=== PATIENT | male | born 1940 | race Caucasian/White ===

== ENCOUNTER 2017-02-12 06:51 | Day surgery (SDC) | payer MEDICARE, OTHER ==
[~2017-02-12] VITALS: Ht 170.2 cm; Wt 122.0 kg
[2017-02-12 07:23] VITALS: BP 134/79; PULSE 87; RESP 18; TEMP 98; O2SAT 96
[2017-02-12] MEDS ORDERED: HYDR-3583 PO (07:35)
[2017-02-12] MEDS ORDERED: LOVA40TA PO (07:35)
[2017-02-12] MEDS ORDERED: COUM10TA PO (07:35)
[2017-02-12] MEDS ORDERED: ASPI81CH CHEW (07:35)
[2017-02-12] MEDS ORDERED: METO25TA3 PO (07:35)
[2017-02-12] MEDS ORDERED: GLUC1000 PO (07:35)
[2017-02-12] MEDS ORDERED: LOSA100T2 PO (07:35)
[2017-02-12] MEDS ORDERED: DOXY50 PO (07:35)
[2017-02-12 07:55] LABS: AUTOMATED NEUTROPHIL # 6.5 TH/MM3 (1.8-7.7); BASOPHIL # 0.2 TH/MM3 (0-0.2); BASOPHIL % 2.3 % (0.0-2.0); EOSINOPHIL # 0.2 TH/MM3 (0-0.4); EOSINOPHIL % 1.7 % (0.0-4.0); HEMO FLAGS DIFF FINAL; LYMPH % 14.2 % (9.0-44.0); LYMPHOCYTE # 1.4 TH/MM3 (1.0-4.8); MEAN CORPUSCULAR HEMOGLOBIN 28.6 PG (27.0-34.0); MEAN CORPUSCULAR HGB CONC 32.1 % (32.0-36.0); MONO % 14.4 % (0.0-8.0); NEUT % 67.4 % (16.0-70.0); PLATELET COUNT 237 TH/MM3 (150-450); RED BLOOD COUNT 4.37 MIL/MM3 (4.50-5.90); WHITE BLOOD COUNT 9.6 TH/MM3 (4.0-11.0)
[2017-02-12 08:04] LABS: APTT (PATIENT) 30.9 SEC (24.3-30.1); INTERNATIONAL NORMALIZED RATIO 1.1 RATIO; PROTHROMBIN TIME - PATIENT 12.2 SEC (9.8-11.6)
[2017-02-12 08:11] LABS: BICARBONATE 28.5 MEQ/L (21.0-32.0); POTASSIUM 3.9 MEQ/L (3.5-5.1)
[2017-02-12] MEDS ORDERED: HEPARIN-NS/PF INJ 500 ML ONE (08:34)
[2017-02-12] MEDS ORDERED: MIDAZOLAM HCL 2 MG/2 ML VIAL ONE (08:34)
[2017-02-12] MEDS ORDERED: HEPARIN SODIUM - IV 10,000 UNITS/10 ML VIAL ONE (09:15)
[2017-02-12] MEDS ORDERED: VERAPAMIL HCL 5 MG/2 ML VIAL ONE (09:15)
[2017-02-12] MEDS ORDERED: NITROGLYCERIN INJ 5 ML ONE (09:16)
[2017-02-12] MEDS ORDERED: SODIUM CHLORIDE 0.9% FLUSH 5 ML FLUSH IVF PRN (10:00)
[2017-02-12] MEDS ORDERED: IOHEXOL 350 MG/ML 100 ML BTL (for Cath Lab) OTHER ONE (10:00)
[2017-02-12] MEDS ORDERED: MISC INFORMATION XX ONE (10:00)
--- NOTE | 2017-02-12 11:19 | MA ---
cc: DELROY HURT DATE: 02/12/2017 PROCEDURE PERFORMED 1. Right heart catheterization. 2. Left heart catheterization. 3. Selective right and left coronary artery angiography. INDICATION Pre-op / severe symptomatic aortic stenosis. PROCEDURE DESCRIPTION Consent signed. 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 The right wrist and right groin were prepped and draped in a sterile fashion. Using 1% lidocaine for local anesthesia and a micropuncture kit a 7- Haitian sheath was inserted into the right common femoral vein. A [place] was floated into a wedge. Pressures were recorded as well as blood was drawn from the pulmonary artery. Pressures were recorded on the right ventricle and the right atrium as well as in the wedge. Then using 1% lidocaine and a micropuncture kit a 6-Haitian sheath was inserted into the right radial artery. An antispasmodic cocktail was given then selective right and left coronary angiography was performed with a AL-1 and a JL4 diagnostic catheter. Angiography was performed in multiple views. The patient tolerated the procedure well without complications. Estimated blood loss was less than 40 cc. Total contrast used 70 cc. The vein groin site was closed with manual pressure and the right radial artery was closed with a TR band. RESULTS Wedge 37. Main PA 75/43 with a mean of 58. Right ventricle 72/31 with a mean of 27. Right atrium 25/25 with a mean of 22. Ascending aorta pressure 152/91 with a mean of 118. ANGIOGRAPHY 1. The right coronary artery is a dominant vessel and is diffusely calcified and 100% occluded at the ostium. It is filled in through collaterals that are coming from the left circumflex artery as well as from the septals of the LAD. 2. The left main has a 30% lesion distally, is mildly calcified. 3. The LAD is a transapical vessel, has minimal luminal irregularities throughout. It is tortuous. There is a proximal 40% lesion right after the takeoff of the first diagonal. The first and second diagonal are small and they are patent. 4. The left circumflex artery has minimal luminal irregularities throughout. It is also tortuous. There is a proximal 70% lesion. It is giving off a prominent OM1 which is giving collaterals to the right coronary artery. The OM1 is patent with ASHLEE-III flow. CONCLUSIONS 1. Severe symptomatic aortic stenosis. 2. Severe two-vessel coronary artery disease. 3. Elevated right-sided heart pressures. RECOMMENDATIONS The patient will be consulted to CT surgery for aortic valve replacement and bypass surgery. His STS score is 2% The patient will need PFTs, carotid ultrasound and CTA of the chest, abdomen and pelvis. MD FLACO Srinivasan/NNEKA /10:06 AM /10:49 AM MTDD
[2017-02-12] MEDS ORDERED: SODIUM CHLORIDE 0.9% FLUSH 5 ML FLUSH IV FLUSH PRN (11:30)
[2017-02-12] MEDS ORDERED: PAPAVERINE INJ 60 MG, NITROGLYCERIN INJ 100 MCG, DILTIAZEM INJ 100 MG in SODIUM CHLORID... IRRIGATION SCH (11:30)
--- NOTE | 2017-02-12 13:00 | RADRPT ---
EXAM DATE/TIME: 02/12/2017 11:41 [facility] COMPARISON: No previous studies available for comparison. INDICATIONS : Occlusion. MEDICAL HISTORY : Hypertension. Hyperlipidemia. Diabetes. Chest pain. Pulmonary embolism. Anticoagulant therapy, Co umadin. SURGICAL HISTORY : Cardiac cath. ENCOUNTER: Initial ACUITY: 1 day PAIN SCORE: 8/10 LOCATION: Bilateral neck PEAK SYSTOLIC VELOCITIES (cm/sec): ICA/CCA RATIO: Right: 1.7 Left: 1.6 ICA: Right: 79 Left: 74 CCA: Right: 45 Left: 47 ECA: Right: 92 Left: 58 VERTEBRAL: Right: 42 antegrade Left: 36 antegrade Elevated flow velocities and ICA/CCA ratios have been found to correlate with increased degrees of vessel stenosis, calculated as percentage of diameter relative to a normal segment of distal ICA/CCA FINDINGS: RIGHT CAROTID: Mild plaque is seen at the common carotid and carotid bulb regions. No significant stenosis is visual ized. The waveforms are within normal limits. LEFT CAROTID: Mild plaque is seen at the common carotid and carotid bulb regions. No significant stenosis is visual ized. The waveforms are within normal limits. VERTEBRAL ARTERIES: Antegrade flow is seen in both vertebral arteries. MISCELLANEOUS: None. CONCLUSION: Mild plaque without a significant stenosis. Bahman Martins MD on February 12, 2017 at 12:57 Board Certified Radiologist. This report was verified electronically.
--- NOTE | 2017-02-12 13:04 | RADRPT ---
EXAM DATE/TIME: 02/12/2017 12:01 [facility] COMPARISON: No previous studies available for comparison. INDICATIONS : Preop CABG. MEDICAL HISTORY : Hypertension. Hyperlipidemia. Diabetes. Chest pain. Pulmonary embolism. Anticoagulant therapy, Coum andrew. SURGICAL HISTORY : Cardiac catheterization. ENCOUNTER: Initial ACUITY: 1 day PAIN SCORE: 8/10 LOCATION: Bilateral leg. TECHNIQUE: Venous ultrasound of the left and right leg was performed from the inguinal ligament to the proximal calf. Real-time, color Doppler and spectral tracing, compression and augmentation techniques were us ed. FINDINGS: RIGHT LEG: There is normal compressibility of the deep venous system from the inguinal region to the proximal ca lf. No echogenic clot is seen in the lumen of the common femoral, femoral, popliteal, and posterior tibial veins. There is a normal response of the venous system to proximal and distal augmentation an d respiration. LEFT LEG: There is normal compressibility of the deep venous system from the inguinal region to the proximal ca lf. No echogenic clot is seen in the lumen of the common femoral, femoral, popliteal, and posterior tibial veins. There is a normal response of the venous system to proximal and distal augmentation an d respiration. CONCLUSION: No DVT. Bahman Martins MD on February 12, 2017 at 12:58 Board Certified Radiologist. This report was verified electronically.
--- NOTE | 2017-02-12 13:05 | RADRPT ---
EXAM DATE/TIME: 02/12/2017 12:10 [facility] COMPARISON: No previous studies available for comparison. INDICATIONS : Preop CABG. MEDICAL HISTORY : Hypertension. Hyperlipidemia. Diabetes. Chest pain. Pulmonary embolism. Anticoagulant therapy, Coum andrew. SURGICAL HISTORY : Cardiac catheterization. ENCOUNTER: Initial ACUITY: 1 day PAIN SCORE: 8/10 LOCATION: Bilateral leg. GREATER SAPHENOUS VEIN THIGH: PROXIMAL: Right 3 mm Left 6 mm MID: Right 2 mm Left 3 mm DISTAL: Right 2 mm Left 3 mm CALF: PROXIMAL: Right 3 mm Left 2 mm MID: Right 2 mm Left 2 mm DISTAL: Right 3 mm Left 3 mm FINDINGS: The venous system of the lower extremities are patent by color Doppler imaging. Measurements of the leg veins (in mm) are listed above. CONCLUSION: Venous mapping as noted above. Bahman Martins MD on February 12, 2017 at 13:02 Board Certified Radiologist. This report was verified electronically.
[2017-02-12 13:50] LABS: BLOOD, URINE NEG (NEG); COMMENT (UR) CULT NOT INDICATED; CULTURE IF INDICATED CULT NOT INDICATED; GLUCOSE,URINE NEG (NEG); KETONE, URINE NEG (NEG); MUCUS URINE FEW /lpf (OCC); NITRITE,URINE NEG (NEG); PH, URINE 6.5 (5.0-8.5); SQUAMOUS EPITHELIAL CELL URINE <1 /hpf (0-5); URINE COLOR YELLOW (YELLW/STRAW)
[2017-02-12 14:22] LABS: HEMOGLOBIN A1a 1.3 %; HEMOGLOBIN A1b 0.9 %; HEMOGLOBIN Ao 83.4 %; HEMOGLOBIN F 1.9 %; HEMOGLOBIN LA1C 2.1 %; HEMOGLOBIN P3 4.2 %
--- NOTE | 2017-02-12 14:24 | RADRPT ---
EXAM DATE/TIME: 02/12/2017 13:55 [facility] COMPARISON: No previous studies available for comparison. INDICATIONS : Infiltrate MEDICAL HISTORY : None. SURGICAL HISTORY : None. ENCOUNTER: Initial ACUITY: 1 day PAIN SCORE: 0/10 LOCATION: chest FINDINGS: The heart is moderately enlarged. There is no significant congestion or acute airspace disease. There are no pleural effusions. Osseous structures are intact. CONCLUSION: Cardiomegaly without evidence of acute cardiopulmonary process. Charly Valverde MD on February 12, 2017 at 14:19 Board Certified Radiologist. This report was verified electronically.
--- NOTE | 2017-02-12 14:28 | EKG ---
Date Performed: 02/12/2017 Time Performed: 07:33:34 PTAGE: 76 years EKG: Atrial fibrillation Nonspecific intraventricular conduction defect Inferior infarct - age u ndetermined QRS changes V3/V4 may be due to LVH but cannot rule out anterior infarct COMPARED TO PRIO R ELECTROCARDIOGRAM, Atrial fibrillation has replaced Sinus rhythm and inferior myocardial infarction pattern is present. Abnormal ECG PREVIOUS TRACING : 08/13/2005 04.36 DOCTOR: Marques Weller Interpretating Date/Time 02/12/2017 14:27:47
--- NOTE | 2017-02-12 17:01 | MB ---
cc: PRISCILLA PERAZA MD, REBA K. MD DATE OF CONSULTATION: 02/23/2017 REASON FOR CONSULTATION: This is a 76-year-old male patient of Dr. Lai Hernandez, Dr. Faheem Mistry, with history of aortic stenosis, atrial fibrillation reported increasing dyspnea with mild exertion. No syncope. No paroxysmal nocturnal dyspnea. No chest pain was followed up with Dr. Mistry and underwent Echocardiogram which showed evidence of severe aortic stenosis with a mean gradient of 44, valve area of 0.83, some mild mitral regurgitation, mild tricuspid regurgitation. Ejection fraction of 68%. The patient then underwent cardiac cath today. which showed left main disease of 40% proximal LAD 50%. The circ was 70%. The RCA 100%. We were consulted to evaluate for coronary artery bypass grafting x2 with aortic valve replacement. The patients history is complicated by right knee infection and where he had a right total knee [place] [address] Gr with repair of the right knee in 2013 with removal of the hardware. He has this seen and numerous other physicians for consultation but he was told that he might have to have complete removal of the hardware and placement of a spacer for 6-8 months and then room surgery, but he has been turned down due to his history of atrial fibrillation, his history of pulmonary emboli on anticoagulation and apparently needing cardiac clearance. He has been following with Dr. Tere [facility] for his intermittent infection of his right knee. He also had been followed by wound clinic at [facility]. He has been on doxycycline for the last 2 months. He normally resides in [place] but he is does have a condo here in the area and is here to be evaluated again for the above complaint. PAST MEDICAL HISTORY: The patient's past medical history significant for aortic stenosis. He had a stress test in 2012 which had inferior defect, at that time worsening aortic stenosis by cath and echo. Atrial fibrillation with CYNTHIA'S score 2. Was on Xarelto in the past but had a GI bleed Also has had history of cardioversion and is on coumadin now. He has some carotid stenosis. His prior carotid ultrasound 2013 showed by moderate bilateral and ICA disease. He has history of coronary artery disease with prior RCA stent in He has a stent to the LAD, The RCA. He also was taken off Plavix secondary to GI bleed history. History of diabetes mellitus type 2, chronic lower extremity edema, chronic cellulitis and venous stasis of his lower extremities. History of GI bleed. Hypertension Hyperlipidemia. Left ventricular hypertrophy. obesity, weight is 122 kg. The patient also had history of IVC filter placement. ALLERGIES NO KNOWN DRUG ALLERGIES. MEDICATIONS: Aspirin 81 daily, Coumadin 10 p.o. daily, Doxycycline 100 b.i.d., Glucophage 1000 b.i.d. [place] p.r.n. for pain Losartan / hydrochlorothiazide 100/25 p.o. daily, Lovastatin 40 daily Metoprolol 25 p.o. daily. FAMILY HISTORY: Family history of mother from pancreatic cancer. 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 Normally resides in the [facility] REVIEW OF SYSTEMS As above in the history of present illness of 12 systems unremarkable. PHYSICAL EXAMINATION: VITAL SIGNS: On exam blood pressure 144/80, heart rate 70, temperature, afebrile. O2 sat 96% on room air. IN GENERAL: Patient is awake, alert, no acute distress. HEAD, EYES, EARS, NOSE, AND THROAT: head is normocephalic, atraumatic. Pupils equal and reactive. Oral mucosa pink, moist. NECK: Supple. No JVD. HEART: Heart sounds S1-S2 a regular rate and rhythm with a great 2-3/6 systolic murmur best on the left sternal border. LUNGS: Clear to auscultation wheezes, rales or rhonchi. ABDOMEN: Soft, nontender. No masses or organomegaly. EXTREMITIES: Reveal the right knee and lower extremity larger than the left he does have bilateral ankle erythema, chronic venous stasis and chronic history of cellulitis. The right knee is positive for swelling and no drainage. No induration at this time. He has distal pulses. LABORATORY FINDINGS Shows INR 1.1. Hemoglobin 12, hematocrit 39, white cell count 190.6, platelet count 237, sodium 140, potassium 3.9, BUN of 14, creatinine 0.97. The echocardiogram was as above. EKG shows atrial fibrillation with Q-waves in inferior leads, incomplete left bundle branch block. IMPRESSION This is a 76-year-old male with severe aortic stenosis also two-vessel coronary disease. Evaluation for aortic valve replacement, coronary artery bypass graft x2 cardiac films will be evaluated by Dr. Priscilla Peraza. In the meantime the patient will need infectious disease clearance for surgery incase related to the need for tissue aortic valve placement to avoid any infection. We have placed and made an appointment with Dr. Tere Disla for next week on the and then she has a follow-up in our office on the . The patient is to continue all medications as above. If he has any chest pain in the meantime, he is to return to the emergency room immediately. In the meantime we will follow up with the patient as a outpatient and timing for surgery at that time. DICTATED BY: JOANA Landry Priscilla Bennett /2:52 PM /8:32 AM
[2017-02-12] MEDS ORDERED: SODIUM CHLORIDE 0.9% FLUSH 5 ML FLUSH IVF SCH (21:00)
[2017-02-12] MEDS ORDERED: SODIUM CHLORIDE 0.9% FLUSH 5 ML FLUSH IV FLUSH SCH (21:00)
--- NOTE | 2017-02-16 16:38 | PD.CAR.PN ---
CVT Progress Note Subjective/Hospital Course: sts data discussed with pt RISK SCORES About the STS Risk Calculator Procedure: AV Replacement + CAB Risk of Mortality: 3.42% Morbidity or Mortality: 22.974% Long Length of Stay: 12.017% Short Length of Stay: 20.991% Permanent Stroke: 1.808% Prolonged Ventilation: 14.602% DSW Infection: 0.86% Renal Failure: 8.737% Reoperation: 9.763% Result Diagram: 02/12/17 0720 02/12/17 0720 Zara Sheehan Feb 16, 2017 16:38
--- NOTE | 2017-02-19 11:59 | RSPPFT ---
DATE OF PROCEDURE: 02/12/17 COMMENTS: Spirometry with FVC of 1.9 at 58% of predicted, FEV1 of 1.4 at 58%, FEV1/FVC ratio is normal. Flow is decreased at FEF 25-75. Flow volume loop indicates a restrictive pattern. IMPRESSION: 1. Moderately severe obstructive lung disease. 2. Post-bronchodilator study was not done. 3. Patient will need a complete pulmonary function study for further evaluation.
== END 2017-02-12 16:34 | disposition home or self-care (01) ==
LOC: HCAT 06:51 → HDIC 06:52 → HCAT 16:34
PROVIDERS: ATTEND Radiology Vascular & Interventional Radiology
DX: I35.0 Nonrheumatic aortic (valve) stenosis (principal); I34.0 Nonrheumatic mitral (valve) insufficiency; I51.7 Cardiomegaly; I48.91 Unspecified atrial fibrillation; I25.10 Atherosclerotic heart disease of native coronary artery without angina pectoris; I25.82 Chronic total occlusion of coronary artery; E78.5 Hyperlipidemia, unspecified; E11.9 Type 2 diabetes mellitus without complications; I10 Essential (primary) hypertension; E66.9 Obesity, unspecified; Z68.41 Body mass index [BMI] 40.0-44.9, adult; Z79.01 Long term (current) use of anticoagulants; Z79.82 Long term (current) use of aspirin; Z86.711 Personal history of pulmonary embolism; Z95.5 Presence of coronary angioplasty implant and graft; Z87.891 Personal history of nicotine dependence; Z01.818 Encounter for other preprocedural examination
CPT/HCPCS: 71010; 80048; 81001; 82810; 83036; 85025; 85610; 85730; 87641; 93005; 93457; 93880; 93970; 93998; 94010; C1769; C1893; J1644; J2250; J3010; Q9967

== ENCOUNTER 2017-04-06 11:50 | Emergency (ER) | payer MEDICARE, OTHER ==
[~2017-04-06] VITALS: Ht 170.2 cm; Wt 120.0 kg
[~2017-04-06 11:50] MED LIST: ASPI81CH CHEW; COUM10TA PO; DOXY50 PO; GLUC1000 PO; HYDR-3583 PO; LOSA100T2 PO; LOVA40TA PO; METO25TA3 PO
[2017-04-06 11:52] VITALS: BP 161/80; PULSE 70; RESP 16; TEMP 98.2; O2SAT 95
[2017-04-06 12:12] VITALS: BP 138/67; PULSE 76; RESP 18; O2SAT 96
[2017-04-06] MEDS ORDERED: SODIUM CHLORIDE 0.9% FLUSH 10 ML FLUSH IV FLUSH PRN (12:15)
--- NOTE | 2017-04-06 12:21 | PD ---
HPI Chief Complaint: Edema Time Seen by Provider: 12:16 Travel History International Travel<30 days: No Contact w/Intl Traveler<30days: No Traveled to known affect area: No History of Present Illness HPI Patient comes emergency Department complaining of worsening right lower extremity edema and knee pain ongoing for a week. Patient states that about a week ago he was sitting on a bench that was while higher than his legs causing them to hanging over the side and causes extra pressure on the backside of his right knee. Patient in the past week he's noticed increased swelling causing him to have more dyspnea on exertion than normal as well as a sharp stabbing pain in his posterior right knee without radiation. Patient denies any direct trauma. Patient states he's had issues with this knee ongoing for 2 years however just got worse over the past week. Patient states he's been taking a prescription of Percocet twice a day for the pain that helped some. Pain is worse with walking. Reports he is on Coumadin for A. fib and his last INR a week ago was 1.9 per patient. Denies any numbness or tingling, chest pain, fevers, nausea, or vomiting. Patient reports last knee surgery was [address] Gr at [facility]. PFSH Past Medical History Hx Anticoagulant Therapy: Yes (Coumadin) Atrial Fibrillation: Yes Cancer: No Cardiovascular Problems: Yes High Cholesterol: Yes Chest Pain: No Congestive Heart Failure: Yes Diabetes: Yes Patient Takes Glucophage: Yes Gastrointestinal Disorders: No Glaucoma: No Hepatitis: No Hiatal Hernia: No Hypertension: Yes Respiratory: No Integumentary: No Thyroid Disease: No ?: Not Past Surgical History Genitourinary Surgery: Yes (lithotripsy) Tonsillectomy: Yes Other Surgery: Yes Social History Alcohol Use: No Tobacco Use: No Substance Use: No Allergies-Medications (Allergen,Severity, Reaction): Coded Allergies: No Known Allergies (Verified Allergy, Severe, 08/12/05) Reported Meds & Prescriptions Reported Meds & Active Scripts Active Reported Metoprolol Tartrate 25 Mg Tab 25 Mg PO BID Lovastatin 40 Mg Tab 40 Mg PO DAILY Losartan-Hydrochlorothiazide 100-25 Mg Tab 1 Tab PO DAILY Hydrocodone-Acetaminophen 10-325 mg Tab 1 Tab PO Q4H PRN Glucophage (Metformin HCl) 1,000 Mg Tab 1,000 Mg PO BIDPC With a meal Doxycycline Hyclate 50 Mg Cap 50 Mg PO BID Coumadin (Warfarin) 10 Mg Tab 10 Mg PO DAILY Aspirin 81 Mg Chew 81 Mg CHEW DAILY Review of Systems Except as stated in HPI: all other systems reviewed are Neg Physical Exam Narrative GENERAL: Well-developed, overly nourished, in no acute distress, and non-ill appearing. SKIN: Venous stasis dermatitis bilateral lower extremities right greater than left that patient and reports is chronic. HEAD: Atraumatic. Normocephalic. EYES: Pupils equal and round. EOMI. No scleral icterus. No injection or drainage. ENT: No nasal bleeding or discharge. Mucous membranes pink and moist. NECK: Trachea midline. Supple. No nuclear rigidity. CARDIOVASCULAR: Regular rate and rhythm. Murmur appreciated. RESPIRATORY: No accessory muscle use. No respiratory distress. Clear to auscultation. Breath sounds equal bilaterally. MUSCULOSKELETAL: No obvious deformities. No clubbing. No cyanosis. 2+ pitting edema bilateral lower extremities. Decreased range of motion right knee secondary pain. Knee: Negative patellar apprehension, valgus maneuvers, anterior draw test, and Roxie test. Pulses equal BL distal to injury. Capillary refill less than 2 seconds distal to injury and equal BL. FROM distal to injury and equal BL. Strength distal to injury equal BL. NV intact distal to injury. Dorsal pulses equal BL. Sensation equal BL 1st web space. Mild laxity right knee with varus maneuver. NEUROLOGICAL: Awake and alert. No obvious cranial nerve deficits. Motor grossly within normal limits. Normal speech. PSYCHIATRIC: Appropriate mood and affect; insight and judgment normal. Data Data Last Documented VS Vital Signs Date Time Temp Pulse Resp B/P Pulse Ox O2 Delivery O2 Flow Rate FiO2 04/06/17 15:06 177/103 04/06/17 15:03 98.1 68 16 04/06/17 12:12 96 Room Air Orders Basic Metabolic Panel (Bmp) (04/06/17 12:11) Complete Blood Count With Diff (04/06/17 12:11) Prothrombin Time / Inr (Pt) (04/06/17 12:11) Act Partial Throm Time (Ptt) (04/06/17 12:11) Iv Access Insert/Monitor (04/06/17 12:11) Ecg Monitoring (04/06/17 12:11) Oximetry (04/06/17 12:11) Sodium Chloride 0.9% Flush (Ns Flush) (04/06/17 12:15) Chest, Single Ap (04/06/17 12:11) B-Type Natriuretic Peptide (04/06/17 12:11) Us Leg Venous Doppler (04/06/17 12:11) Knee, Complete (4vws) (04/06/17 ) Furosemide Inj (Lasix Inj) (04/06/17 14:45) Labs Laboratory Tests Test 04/06/17 12:15 White Blood Count 13.1 TH/MM3 Red Blood Count 4.23 MIL/MM3 Hemoglobin 12.4 GM/DL Hematocrit 37.9 % Mean Corpuscular Volume 89.6 FL Mean Corpuscular Hemoglobin 29.4 PG Mean Corpuscular Hemoglobin 32.8 % Concent Red Cell Distribution Width 18.2 % Platelet Count 297 TH/MM3 Mean Platelet Volume 8.0 FL Neutrophils (%) (Auto) 74.5 % Lymphocytes (%) (Auto) 9.7 % Monocytes (%) (Auto) 13.1 % Eosinophils (%) (Auto) 1.6 % Basophils (%) (Auto) 1.1 % Neutrophils # (Auto) 9.8 TH/MM3 Lymphocytes # (Auto) 1.3 TH/MM3 Monocytes # (Auto) 1.7 TH/MM3 Eosinophils # (Auto) 0.2 TH/MM3 Basophils # (Auto) 0.1 TH/MM3 CBC Comment AUTO DIFF Differential Total Cells 100 Counted Neutrophils % (Manual) 68 % Band Neutrophils % 2 % Lymphocytes % 11 % Monocytes % 13 % Eosinophils % 2 % Basophils % 3 % Neutrophils # (Manual) 9.3 TH/MM3 Metamyelocytes 1 % Differential Comment FINAL DIFF MANUAL Platelet Estimate NORMAL Platelet Morphology Comment NORMAL Red Cell Morphology Comment NORMAL Prothrombin Time 16.2 SEC Prothromb Time International 1.4 RATIO Ratio Activated Partial 35.3 SEC Thromboplast Time Sodium Level 138 MEQ/L Potassium Level 4.3 MEQ/L Chloride Level 103 MEQ/L Carbon Dioxide Level 27.6 MEQ/L Anion Gap 7 MEQ/L Blood Urea Nitrogen 19 MG/DL Creatinine 0.93 MG/DL Estimat Glomerular Filtration 79 ML/MIN Rate Random Glucose 121 MG/DL Calcium Level 8.9 MG/DL B-Type Natriuretic Peptide 352 PG/ML MDM Medical Decision Making Medical Screen Exam Complete: Yes Emergency Medical Condition: Yes Interpretation(s) Right knee x-ray read by the radiologist shows: CONCLUSION: 1. Age-indeterminate displaced midpole patellar fracture. Displaced patellar component of prosthesis. 2. Large joint effusion. 3. Total knee prosthesis in place with adjacent lucency in the distal femur and proximal tibia suggesting osteolysis. Right lower extremity Doppler read by radiologist shows: CONCLUSION: 1. Right leg soft tissue edema. 2. No deep venous thrombosis in the right leg. Chest x-ray read by radiology shows: CONCLUSION: Cardiomegaly with increased pulmonary vascularity. Differential Diagnosis Arthritis, DVT, CHF exacerbation, chronic edema, other Narrative Course 1320 discussed x-ray findings with patient reports patella fracture was initial failure to the surgery 2 years ago and that the joint displacement is old as well. Patient in no obvious distress upon re-evaluation. All pertinent laboratory/ Radiology result(s) discussed with patient/family. Patient was offered admission , but has declined at this time. Discussed patient with Dr. Delgado prior to discharge, who is in agreement with plan of care and disposition. Any questions /concerns in reference to patient diagnosis/condition discussed and clarified prior to patient's discharge. Reinforced sheer importance of close follow up with patient's primary physician or primary care clinic, veterinarian, and orthopedic. Instructed patient to return to ED immediately, if symptoms return/ worsen. Pt showed understanding of above instructions. Further instructions and recommendations were detailed in discharge paperwork. Pt ambulated without difficulty out of ED at discharge. Diagnosis Primary Impression: Right knee pain Qualified Code: M25.561 - Right knee pain, unspecified chronicity Additional Impressions: Elevated brain natriuretic peptide (BNP) level Chronic edema Subtherapeutic international normalized ratio (INR) Patient Instructions: General Instructions, Knee Pain (ED), Swollen Knee Joint (ED) Additional Instructions: Follow-up with your primary care physician, veterinarian, and orthopedic this week for reevaluation and recheck of your INR. Use [id number] Tylenol as needed for pain. Follow instructions on the packaging. Return to the emergency department if symptoms get worse. Disposition: 01 DISCHARGE HOME Condition: Stable Shravan Hoff April 06, 2017 12:21
[2017-04-06 12:27] LABS: AUTOMATED NEUTROPHIL # 9.8 TH/MM3 (1.8-7.7); BASOPHIL # 0.1 TH/MM3 (0-0.2); BASOPHIL % 1.1 % (0.0-2.0); EOSINOPHIL # 0.2 TH/MM3 (0-0.4); EOSINOPHIL % 1.6 % (0.0-4.0); HEMATOCRIT 37.9 % (39.0-51.0); LYMPH % 9.7 % (9.0-44.0); LYMPHOCYTE # 1.3 TH/MM3 (1.0-4.8); MEAN CELL VOLUME 89.6 FL (80.0-100.0); MEAN CORPUSCULAR HEMOGLOBIN 29.4 PG (27.0-34.0); MEAN CORPUSCULAR HGB CONC 32.8 % (32.0-36.0); MONO % 13.1 % (0.0-8.0); NEUT % 74.5 % (16.0-70.0); PLATELET COUNT 297 TH/MM3 (150-450); RED BLOOD COUNT 4.23 MIL/MM3 (4.50-5.90); RED CELL DISTRIBUTION WIDTH 18.2 % (11.6-17.2); WHITE BLOOD COUNT 13.1 TH/MM3 (4.0-11.0)
[2017-04-06 12:28] LABS: HEMO FLAGS AUTO DIFF
[2017-04-06 12:35] LABS: APTT (PATIENT) 35.3 SEC (24.3-30.1); INTERNATIONAL NORMALIZED RATIO 1.4 RATIO; PROTHROMBIN TIME - PATIENT 16.2 SEC (9.8-11.6)
[2017-04-06 12:45] LABS: BICARBONATE 27.6 MEQ/L (21.0-32.0); POTASSIUM 4.3 MEQ/L (3.5-5.1)
[2017-04-06 13:02] LABS: BANDS 2 % (0-6); BASOPHILS 3 % (0-2); EOSINOPHILS 2 % (0-4); METAMYELOCYTES 1 % (0-1); NEUTROPHIL # MANUAL DIFF 9.3 TH/MM3 (1.8-7.7); POLYS (SEG NEUTROPHILS) 68 % (16-70); WBC DIFF SAMPLE 100
[2017-04-06 13:03] LABS: PLATELET ESTIMATE SMEAR NORMAL (NORMAL); PLATELET MORPHOLOGY NORMAL (NORMAL); SCAN/DIFF FINAL DIFF MANUAL
--- NOTE | 2017-04-06 13:13 | RADRPT ---
EXAM DATE/TIME: 04/06/2017 12:40 [facility] COMPARISON: No previous studies available for comparison. INDICATIONS : Right knee swelling for several days. MEDICAL HISTORY : Hypertension. Hyperlipidemia. Diabetes. Chest pain. Pulmonary embolism. Anticoagulant therapy, Coumad in. SURGICAL HISTORY : Cardiac catheterization. Total knee replacement, right. ENCOUNTER: Initial ACUITY: 4 - 6 days PAIN SCORE: 6/10 LOCATION: Right knee. FINDINGS: 4 views of the right knee. Right total knee prosthesis in place. Age-indeterminate comminuted patella r fracture with 2 cm displacement. Patellar component of prosthesis is displaced medially on the AP v iew. Lucency at the bone prosthesis interfaces of the proximal tibia and distal femur suggesting oste olysis. Large joint effusion. CONCLUSION: 1. Age-indeterminate displaced midpole patellar fracture. Displaced patellar component of prosthesis. 2. Large joint effusion. 3. Total knee prosthesis in place with adjacent lucency in the distal femur and proximal tibia sugges ting osteolysis. Chas Hawley MD on April 06, 2017 at 12:58 Board Certified Radiologist. This report was verified electronically.
--- NOTE | 2017-04-06 13:37 | RADRPT ---
EXAM DATE/TIME: 04/06/2017 13:04 [facility] COMPARISON: No previous studies available for comparison. INDICATIONS : Right leg swelling and pain. MEDICAL HISTORY : Hypertension. Hyperlipidemia. Diabetes. Chest pain. Pulmonary embolism. Anticoagulant therapy, Coumad in. SURGICAL HISTORY : Cardiac catheterization. ENCOUNTER: Subsequent ACUITY: 3 days PAIN SCORE: 4/10 LOCATION: Right leg. TECHNIQUE: Venous ultrasound of the leg was performed from the inguinal ligament to the proximal calf. Real-mayank e, color Doppler and spectral tracing, compression and augmentation techniques were used. FINDINGS: There is normal compressibility of the deep venous system from the inguinal region to the proximal ca lf. No echogenic clot is seen in the lumen of the common femoral, femoral, popliteal, and posterior tibial veins. There is a normal response of the venous system to proximal and distal augmentation an d respiration. Extensive edema throughout the right lower extremity. CONCLUSION: 1. Right leg soft tissue edema. 2. No deep venous thrombosis in the right leg. Levi Keating MD on April 06, 2017 at 13:31 Board Certified Radiologist. This report was verified electronically.
--- NOTE | 2017-04-06 14:02 | RADRPT ---
EXAM DATE/TIME: 04/06/2017 12:35 [facility] COMPARISON: No previous studies available for comparison. INDICATIONS : Short of breath. Lower leg swelling. MEDICAL HISTORY : Hypertension. Hyperlipidemia. Diabetes. Chest pain. Pulmonary embolism. Anticoagulant therapy, Coumad in. SURGICAL HISTORY : Cardiac catheterization. Total knee replacement, Right. ENCOUNTER: Initial ACUITY: 4 - 6 days PAIN SCORE: 0/10 LOCATION: Bilateral chest FINDINGS: A single view of the chest demonstrates cardiomegaly with increased pulmonary vascularity. The cardi omediastinal contours are unremarkable. Osseous structures are intact. CONCLUSION: Cardiomegaly with increased pulmonary vascularity. Levi Keating MD on April 06, 2017 at 13:59 Board Certified Radiologist. This report was verified electronically.
[2017-04-06] MEDS ORDERED: FUROSEMIDE 40 MG/4 ML VIAL IV PUSH ONE (14:45)
[2017-04-06 15:03] VITALS: TEMP 98.1
[2017-04-06 15:06] VITALS: BP 177/103
== END 2017-04-06 15:59 | disposition home or self-care (01) ==
LOC: NEPE 11:50
DX: M25.561 Pain in right knee (principal); R79.89 Other specified abnormal findings of blood chemistry; R60.0 Localized edema; I48.91 Unspecified atrial fibrillation; E11.9 Type 2 diabetes mellitus without complications; I10 Essential (primary) hypertension; Z79.01 Long term (current) use of anticoagulants
CPT/HCPCS: 71010; 73564; 80048; 83880; 85007; 85027; 85610; 85730; 93971; 96374; 99284; J1940

== ENCOUNTER 2017-12-17 09:18 | Inpatient (IN) | payer MEDICARE, OTHER ==
[2017-12-17] VITALS (12 sets, daily range): BP systolic 90–146; BP diastolic 47–80; PULSE 59–110; RESP 15–20; TEMP 97.9–98.5; O2SAT 95–99
[~2017-12-17 09:18] MED LIST changes: +ASPI-516 CHEW; -ASPI81CH CHEW
[2017-12-17] MEDS ORDERED: SODIUM CHLORIDE 0.9% FLUSH 10 ML FLUSH IV FLUSH PRN (09:45)
--- NOTE | 2017-12-17 10:09 | PD ---
HPI Chief Complaint: Fall Time Seen by Provider: 09:32 Travel History International Travel<30 days: No Contact w/Intl Traveler<30days: No Traveled to known affect area: No History of Present Illness HPI Patient 69-year-old male presents emergency department for evaluation of left flank swelling. Patient states she is on Coumadin. He states he fell last night and had some minimal pain and swelling last night but decided to sleep it off. Denies any head injury neck injury back injury nausea vomiting diarrhea blood in the stool. He knows morning that was increasingly swollen and decided to come in and be seen. States pain is minimal but he does have chronic pain which he needs this pain medicine for, states gradually worsening, associated with some swelling in the left flank, context as above. PFSH Past Medical History Hx Anticoagulant Therapy: Yes (coumadin ) Atrial Fibrillation: Yes Cancer: No Cardiac Catheterization: Yes Cardiovascular Problems: Yes High Cholesterol: Yes Chest Pain: No Congestive Heart Failure: Yes Diabetes: Yes Patient Takes Glucophage: No Gastrointestinal Disorders: No Glaucoma: No Hepatitis: No Hiatal Hernia: No Hypertension: Yes Respiratory: No Integumentary: No Thyroid Disease: No Past Surgical History Genitourinary Surgery: Yes (lithotripsy) Tonsillectomy: Yes Other Surgery: Yes Social History Alcohol Use: No Tobacco Use: No Substance Use: No Allergies-Medications (Allergen,Severity, Reaction): Coded Allergies: No Known Allergies (Verified Allergy, Severe, 12/17/17) Reported Meds & Prescriptions Reported Meds & Active Scripts Active Reported Furosemide 40 Mg Tab 40 Mg PO DAILY Losartan (Losartan Potassium) 50 Mg Tab 50 Mg PO DAILY Metoprolol Tartrate 25 Mg Tab 25 Mg PO BID Lovastatin 40 Mg Tab 40 Mg PO DAILY Hydrocodone-Acetaminophen 10-325 mg Tab 1 Tab PO Q4H PRN Glucophage (Metformin HCl) 1,000 Mg Tab 1,000 Mg PO BIDPC With a meal Doxycycline Hyclate 50 Mg Cap 50 Mg PO BID Coumadin (Warfarin) 10 Mg Tab 7.5 Mg PO DAILY Aspirin 81 Mg Chew 81 Mg CHEW DAILY Review of Systems Except as stated in HPI: all other systems reviewed are Neg Physical Exam Narrative GENERAL: Well-developed, pale appearance in no obvious distress. SKIN: Focused skin assessment warm/dry. Pale but no generalized petechiae seen. HEAD: Atraumatic. Normocephalic. EYES: Pupils equal and round. No scleral icterus. No injection or drainage. ENT: No nasal bleeding or discharge. Mucous membranes pink and moist. NECK: Trachea midline. No JVD. CARDIOVASCULAR: Regular rate and rhythm. No murmur appreciated. RESPIRATORY: No accessory muscle use. Clear to auscultation. Breath sounds equal bilaterally. GASTROINTESTINAL: Abdomen soft, there is some swelling over the left flank consistent with a superficial hematoma, a sharp really tender to palpation with some overlying skin changes of ecchymosis. There is no peritoneal signs, the abdomen itself is nontender.. Hepatic and splenic margins not palpable. MUSCULOSKELETAL: No obvious deformities. No clubbing. No cyanosis. No edema. NEUROLOGICAL: Awake and alert. No obvious cranial nerve deficits. Motor grossly within normal limits. Normal speech. PSYCHIATRIC: Appropriate mood and affect; insight and judgment normal. Data Data Last Documented VS Vital Signs Date Time Temp Pulse Resp B/P (MAP) Pulse Ox O2 Delivery O2 Flow Rate FiO2 12/17/17 09:50 97 Room Air 12/17/17 09:24 98.1 110 16 141/80 (100) Orders Orders Complete Blood Count With Diff (12/17/17 09:40) Comprehensive Metabolic Panel (12/17/17 09:40) Lipase (12/17/17 09:40) Prothrombin Time / Inr (Pt) (12/17/17 09:40) Act Partial Throm Time (Ptt) (12/17/17 09:40) Iv Access Insert/Monitor (12/17/17 09:40) Ecg Monitoring (12/17/17 09:40) Oximetry (12/17/17 09:40) Sodium Chloride 0.9% Flush (Ns Flush) (12/17/17 09:45) Oxycodone-Acetamin 5-325 Mg (Percocet (12/17/17 10:15) Oral Contrast - Adult (12/17/17 10:15) Complete Blood Count With Diff (12/17/17 10:31) Diatrizoate Liq ( Gastrobertin Liq) (12/17/17 10:34) Ct Abd/Pel W Iv Contrast(Rout) (12/17/17 10:35) Ct Brain W/O Iv Contrast(Rout) (12/17/17 ) Ct Cerv Spine W/O Contrast (12/17/17 ) Ct Thorax/ Chest W Iv Contrast (12/17/17 ) Type And Screen (12/17/17 10:43) Red Blood Cells (Rbc) (12/17/17 10:43) Blood Product Administration (12/17/17 10:43) Sodium Chlor 0.9% 250 Ml Inj (Ns 250 Ml (12/17/17 10:45) Electrocardiogram (12/17/17 09:29) Iodixanol 320 Inj (Rad Ct) (Visipaque 32 (12/17/17 11:24) Fibrinogen (12/17/17 11:42) Flow Cytometry (12/17/17 11:42) Ldh Serum (12/17/17 11:42) Haptoglobin (12/17/17 11:42) Ferritin (12/17/17 11:42) Iron/Tibc Profile (12/17/17 11:42) Uric Acid (12/17/17 11:42) Consult Hematology (12/17/17 ) Phytonadione Inj (Vitamin K Inj) (12/17/17 14:00) Admit Order (Ed Use Only) (12/17/17 12:12) Labs Laboratory Tests Test 12/17/17 09:45 12/17/17 10:45 12/17/17 12:05 White Blood Count 108.9 TH/MM3 117.6 TH/MM3 Red Blood Count 2.16 MIL/MM3 2.22 MIL/MM3 Hemoglobin 6.4 GM/DL 6.2 GM/DL Hematocrit 21.0 % 21.5 % Mean Corpuscular Volume 97.5 FL 96.6 FL Mean Corpuscular Hemoglobin 29.7 PG 28.0 PG Mean Corpuscular Hemoglobin Concent 30.4 % 29.0 % Red Cell Distribution Width 19.9 % 19.5 % Platelet Count 320 TH/MM3 295 TH/MM3 Mean Platelet Volume 9.6 FL 8.8 FL CBC Comment AUTO DIFF AUTO DIFF Differential Total Cells Counted 200 100 Neutrophils % (Manual) 59 % 69 % Band Neutrophils % 9 % 2 % Lymphocytes % 5 % 2 % Monocytes % 6 % 9 % Basophils % 2 % 1 % Neutrophils # (Manual) 96.9 TH/MM3 102.3 TH/MM3 Metamyelocytes 11 % 7 % Myelocytes 5 % 6 % Promyelocytes 5 % 3 % Nucleated Red Blood Cells 5 /100 WBC 6 /100 WBC Differential Comment FINAL DIFF MANUAL FINAL DIFF MANUAL Blastocytes 1 % Platelet Estimate NORMAL NORMAL Platelet Morphology Comment NORMAL NORMAL Ovalocytes 1+ 1+ Haptoglobin 130 MG/DL Prothrombin Time 22.1 SEC Prothromb Time International Ratio 2.2 RATIO Activated Partial Thromboplast Time 30.8 SEC Fibrinogen 413 mg/dL Blood Urea Nitrogen 26 MG/DL Creatinine 1.96 MG/DL Random Glucose 186 MG/DL Total Protein 6.5 GM/DL Albumin 3.0 GM/DL Calcium Level 8.5 MG/DL Alkaline Phosphatase 115 U/L Aspartate Amino Transf (AST/SGOT) 31 U/L Alanine Aminotransferase (ALT/SGPT) 19 U/L Total Bilirubin 0.7 MG/DL Sodium Level 137 MEQ/L Potassium Level 5.2 MEQ/L Chloride Level 102 MEQ/L Carbon Dioxide Level 20.7 MEQ/L Anion Gap 14 MEQ/L Estimat Glomerular Filtration Rate 33 ML/MIN Uric Acid 14.5 MG/DL Iron Level 17 MCG/DL Total Iron Binding Capacity 323 MCG/DL Percent Iron Saturation 5.3 % Ferritin 66 NG/ML Lactate Dehydrogenase 614 U/L Troponin I LESS THAN 0.02 NG/ML Lipase 122 U/L Eosinophils % 1 % Blood Smear Pathologist Review MDM Medical Decision Making Medical Screen Exam Complete: Yes Emergency Medical Condition: Yes Differential Diagnosis Coagulopathy, thermal cytopenia, fall, internal injury. Narrative Course Patient's a 77-year-old male presented emergency department chiefly for concerns of left abdominal swelling after [place] fall last night, he states that he did not think anything of it at the time but gradually it has gotten bigger so he decided to come in to be seen this morning. Appeared very pale on first examination a CBC with sent which did confirm anemia with a hemoglobin of 6.2, patient platelet count as in the 300,000 range unfortunately his white blood cell count has jumped to over 100,000. Last blood work here at this facility within March, he has no history of blood borne illness that he knows of. He his on Coumadin for atrial fibrillation, he states he has been taking this medication. He states he was not complicated on a novel anticoagulant by GI bleed in therefore he will switch to Coumadin in the past. Has not noticed any dark stools not noticed any bright red blood per rectum recently. Unclear as to whether or not the anemia started after the fall or could have led to him losing his balance of falling. Patient with discussed with Dr. Montilla of the hematology service my concerns for acute leukemia, the patient does have a son who of leukemia as well. Multiple laboratory tests ordered per Dr. Montilla including fibrinogen LDH uric acid ferritin haptoglobin iron in flow cytometry, the hematology lab as also compared to peripheral smear to be reviewed. Patient will be transfused 2 units of PRBCs, he will also be given vitamin K IV [address] Montilla's recommendation. I did discuss with the patient the differential diagnosis including leukemia in he will be admitted to the hospital for further workup. He does discussed with Dr. Yang for admission to Dr. Mckinney. Critical Care Narrative Aggregate critical care time was 35 minutes. Time to perform other separately billable procedures was not included in the critical care time. My time did not include minutes spent treating any other patients simultaneously or on activities that did not directly contribute to the patient's treatment. The services I provided to this patient were to treat and/or prevent clinically significant deterioration that could result in: , disability, organ failure I provided critical care services requiring my management, as noted below: Lengthy conversation spent with hematology regarding the ongoing care of this patient, lengthy time at bedside counseling family regarding the probable diagnosis. Patient requiring blood transfusions. Chart data review, documentation time, medication orders and management, vital sign assessments/reviewing monitor data, ordering and reviewing lab tests, ordering and interpreting/reviewing x-rays and diagnostic studies, care of the patient and discussion of the patient with the admitting physicians. Diagnosis Primary Impression: Severe anemia Additional Impressions: Fall Abdominal wall hematoma Anticoagulated Leukocytosis Family history of leukemia Admitting Information Admitting Physician Requests: Admit Condition: Jean Paul Morton MD Dec 17, 2017 10:09
[2017-12-17] MEDS ORDERED: FURO40TA PO (10:10)
[2017-12-17] MEDS ORDERED: LOSA50TA PO (10:10)
[2017-12-17 10:12] LABS: INTERNATIONAL NORMALIZED RATIO 2.2 RATIO; PROTHROMBIN TIME - PATIENT 22.1 SEC (9.8-11.6)
[2017-12-17] MEDS ORDERED: oxyCODONE/ACETAMINOPHEN 5 MG/325 MG TAB PO ONE (10:15)
[2017-12-17 10:24] LABS: MEAN CELL VOLUME 97.5 FL (80.0-100.0); MEAN CORPUSCULAR HEMOGLOBIN 29.7 PG (27.0-34.0); MEAN CORPUSCULAR HGB CONC 30.4 % (32.0-36.0); MEAN PLATELET VOLUME 9.6 FL (7.0-11.0); PLATELET COUNT 320 TH/MM3 (150-450); RED BLOOD COUNT 2.16 MIL/MM3 (4.50-5.90); RED CELL DISTRIBUTION WIDTH 19.9 % (11.6-17.2); WHITE BLOOD COUNT 108.9 TH/MM3 (4.0-11.0)
[2017-12-17 10:31] LABS: HEMOGLOBIN 6.4 GM/DL (13.0-17.0)
[2017-12-17 10:33] LABS: ALT (GPT) 19 U/L (12-78); AST (GOT) 31 U/L (15-37); BICARBONATE 20.7 MEQ/L (21.0-32.0); BLOOD UREA NITROGEN 26 MG/DL (7-18); CALCIUM 8.5 MG/DL (8.5-10.1); CHLORIDE 102 MEQ/L (98-107); CREATININE 1.96 MG/DL (0.60-1.30); GLOMERULAR FILTRATION RATE 33 ML/MIN (>89); GLUCOSE,RANDOM 186 MG/DL (74-106); LIPASE 122 U/L (73-393); SODIUM (NA) 137 MEQ/L (136-145)
[2017-12-17] MEDS ORDERED: DIATRIZOATE MEGLUM/DIATRIZOATE SOD 9 ML CUP ONE (10:34)
[2017-12-17 10:35] LABS: ALKALINE PHOSPHATASE 115 U/L (45-117); TOTAL BILIRUBIN ADULT 0.7 MG/DL (0.2-1.0); TOTAL PROTEIN 6.5 GM/DL (6.4-8.2)
[2017-12-17] MEDS ORDERED: SODIUM CHLOR 0.9% 250 ML INJ 250 ML IV ONE (10:45)
[2017-12-17 11:09] LABS: MEAN CELL VOLUME 96.6 FL (80.0-100.0); MEAN PLATELET VOLUME 8.8 FL (7.0-11.0); PLATELET COUNT 295 TH/MM3 (150-450); RED BLOOD COUNT 2.22 MIL/MM3 (4.50-5.90); RED CELL DISTRIBUTION WIDTH 19.5 % (11.6-17.2); WHITE BLOOD COUNT 117.6 TH/MM3 (4.0-11.0)
[2017-12-17 11:12] LABS: BANDS 9 % (0-6); BASOPHILS 2 % (0-2); BLASTS 1 % (0-0); CORRECTED NUCLEATED RBC 5 /100 WBC (0-0); LYMPHOCYTES 5 % (9-44); METAMYELOCYTES 11 % (0-1); MONOCYTES 6 % (0-8); MYELOCYTES 5 % (0-0); NEUTROPHIL # MANUAL DIFF 96.9 TH/MM3 (1.8-7.7); NUCLEATED RED BLOOD CELL 9 (0-0); POLYS (SEG NEUTROPHILS) 59 % (16-70); PROMYELOCYTES 5 % (0-0)
[2017-12-17 11:13] LABS: HEMATOCRIT 21.5 % (39.0-51.0); HEMOGLOBIN 6.2 GM/DL (13.0-17.0)
[2017-12-17 11:13] LABS: OVALOCYTES 1+ (NORMAL)
--- NOTE | 2017-12-17 11:17 | RADRPT ---
EXAM DATE/TIME: 12/17/2017 11:09 [facility] COMPARISON: No previous studies available for comparison. INDICATIONS : Trauma, fall yesterday. RADIATION DOSE: 68.77 CTDIvol (mGy) MEDICAL HISTORY : Cardiovascular disease. Congestive heart failure. Hypertension.Diabetes. SURGICAL HISTORY : None. ENCOUNTER: Initial ACUITY: 1 day PAIN SCALE: 0/10 LOCATION: cranial TECHNIQUE: Multiple contiguous axial images were obtained of the head. Using automated exposure control and adj ustment of the mA and/or kV according to patient size, radiation dose was kept as low as reasonably a chievable to obtain optimal diagnostic quality images. DICOM format image data is available electro nically for review and comparison. FINDINGS: CEREBRUM: The ventricles are normal for age. No evidence of midline shift, mass lesion, hemorrhage or acute in farction. No extra-axial fluid collections are seen. POSTERIOR FOSSA: The cerebellum and brainstem are intact. The 4th ventricle is midline. The cerebellopontine angle i s unremarkable. EXTRACRANIAL: The visualized portion of the orbits is intact. SKULL: The calvaria is intact. No evidence of skull fracture. CONCLUSION: Normal examination for a patient of this age. Jeferson Mcintyre MD on December 17, 2017 at 11:14 Board Certified Radiologist. This report was verified electronically.
[2017-12-17] MEDS ORDERED: IODIXANOL 320 MG/ML 10 ML VIAL (for Rad CT) IVCONTRAST ONE (11:24)
--- NOTE | 2017-12-17 11:37 | RADRPT ---
EXAM DATE/TIME: 12/17/2017 11:09 [facility] COMPARISON: No previous studies available for comparison. INDICATIONS : Trauma, fall yesterday. Neck pain. RADIATION DOSE: 26.14 CTDIvol (mGy) MEDICAL HISTORY : Cardiovascular disease. Congestive heart failure. Hypertension.Diabetes SURGICAL HISTORY : None. ENCOUNTER: Initial ACUITY: 1 day PAIN SCALE: 0/10 LOCATION: neck TECHNIQUE: Volumetric scanning of the cervical spine was performed. Multiplanar reconstructions in the sagittal, coronal and oblique axial planes were performed. Using automated exposure control and adjustment o f the mA and/or kV according to patient size, radiation dose was kept as low as reasonably achievable to obtain optimal diagnostic quality images. DICOM format image data is available electronically f or review and comparison. FINDINGS: Soft tissue vascular calcifications in the carotid arteries particularly bifurcation. Bony structures are intact normal alignment no evidence fracture, compression, subluxation, or destructive change of the odontoid have a normal relationship the arch of C1. Multilevel degenerative disc disease appreci ated C4-C7 marked anterior marginal spurring hypertrophic C2-T1 with apparent anterior fusion of C3 t hrough C6. Mild uncovertebral hypertrophy and central osteophyte formation without spinal stenosis ap preciated as well as facet arthritic changes of the lateral masses. CONCLUSION: Extensive degenerative findings as described above. No acute bony injury. Jeferson Mcintyre MD on December 17, 2017 at 11:32 Board Certified Radiologist. This report was verified electronically.
--- NOTE | 2017-12-17 11:44 | RADRPT ---
EXAM DATE/TIME: 12/17/2017 11:17 [facility] COMPARISON: CHEST SINGLE AP, February 12, 2017, 13:55. CHEST SINGLE AP, April 06, 2017, 12:35. INDICATIONS : Trauma, fall yesterday. IV CONTRAST: 50 cc Visipaque (iodixanol) IV ; Cumulative dose for multiple exams. RADIATION DOSE: 20.51 CTDIvol (mGy) ; Combined studies - Thorax/Abdomen/Pelvis MEDICAL HISTORY : Cardiovascular disease. Congestive heart failure. Hypertension.Diabetes. SURGICAL HISTORY : None. ENCOUNTER: Initial ACUITY: 1 day PAIN SCALE: 0/10 LOCATION: chest TECHNIQUE: Volumetric scanning of the chest was performed. Using automated exposure control and adjustment of t he mA and/or kV according to patient size, radiation dose was kept as low as reasonably achievable to obtain optimal diagnostic quality images. DICOM format image data is available electronically for review and comparison. Follow-up recommendations for detected pulmonary nodules are based at a minimum on nodule size and pa tient risk factors according to Fleischner Society Guidelines. FINDINGS: There is unipolar pacemaker overlying the left hemithorax where terminating appropriately in the left ventricle. There is a stent across the aortic valve in place. Extensive coronary calcifications are appreciated particularly left anterior descending coronary artery. Cardiomegaly appreciated without p ericardial effusion no evidence of CHF with clear lung ramos. Bony structures are intact and vascula r structures intact with no evidence of mediastinal or hilar adenopathy or mass. CONCLUSION: No acute intra-thoracic process. Bony structures are intact. Compensated atherosclerotic cardiovascular disease wi th cardiomegaly and pacemaker in place as well as stent across the aortic valve. Coronary calcificati ons noted. Jeferson Mcintyre MD on December 17, 2017 at 11:35 Board Certified Radiologist. This report was verified electronically.
--- NOTE | 2017-12-17 11:50 | RADRPT ---
EXAM DATE/TIME: 12/17/2017 11:17 [facility] COMPARISON: No previous studies available for comparison. INDICATIONS : Trauma, fall yesterday. Abdominal distention. IV CONTRAST: 50 cc Visipaque (iodixanol) IV ; Cumulative dose for multiple exams. ORAL CONTRAST: No oral contrast ingested. RADIATION DOSE: 20.51 CTDIvol (mGy) ; Combined studies - Thorax/Abdomen/Pelvis MEDICAL HISTORY : Cardiovascular disease. Hypertension. Diabetes mellitus type 2. SURGICAL HISTORY : None. ENCOUNTER: Initial ACUITY: 1 day PAIN SCALE: 5/10 LOCATION: abdomen TECHNIQUE: Volumetric scanning of the abdomen and pelvis was performed. Using automated exposure control and ad justment of the mA and/or kV according to patient size, radiation dose was kept as low as reasonably achievable to obtain optimal diagnostic quality images. DICOM format image data is available electro nically for review and comparison. FINDINGS: Bony structures as visualized appear intact with extensive vascular calcifications aorta and iliac ve ssels includes the femoral arteries without evidence of aneurysm formation no evidence of retroperito anca elvic or inguinal adenopathy. A vena cava filter is noted in place infrarenal. Bilateral kidneys are normal as are adrenal glands gallbladder pancreas and biliary tree with intact liver and spleen. Bowel distribution is benign. Calcifications noted in the prostate. Left lateral abdomen and extending into the anterior abdomen and anterior left pelvis subcutaneous external to muscular structures there is a large area of 227 or 28 cm in size of soft tissue density probable fluid collection associated with inflammatory infiltrative changes in the fat. This may represent a posttraumatic hematoma and contusion subcutane ous tissues. CONCLUSION: Intra-abdominal pelvic contents reveal no acute abnormality with intact bony structures. Large area left lateral abdomen extending into the an terior abdomen and pelvis subcutaneous tissues of soft tissue density most likely representing hemato ma with associated hemorrhage or inflammatory change in the soft tissues around this. Jeferson Mcintyre MD on December 17, 2017 at 11:42 Board Certified Radiologist. This report was verified electronically.
[2017-12-17 11:59] LABS: BANDS 2 % (0-6); BASOPHILS 1 % (0-2); CORRECTED NUCLEATED RBC 6 /100 WBC (0-0); LYMPHOCYTES 2 % (9-44); METAMYELOCYTES 7 % (0-1); MONOCYTES 9 % (0-8); MYELOCYTES 6 % (0-0); NEUTROPHIL # MANUAL DIFF 102.3 TH/MM3 (1.8-7.7); NUCLEATED RED BLOOD CELL 6 (0-0); POLYS (SEG NEUTROPHILS) 69 % (16-70); PROMYELOCYTES 3 % (0-0)
--- NOTE | 2017-12-17 12:01 | EKG ---
Date Performed: 12/17/2017 Time Performed: 09:29:22 PTAGE: 77 years EKG: ATRIAL FIBRILLATION WITH RAPID VENTRICULAR RESPONSE INTRAVENTRICULAR CONDUCTION DELAY Nonsp ecific ST and T wave abnormalities ABNORMAL ECG Compared to prior electrocardiogram, Nonspecific ST a nd T wave abnormalities are more marked PREVIOUS TRACING : 12/17/2017 09.28 DOCTOR: Marques Weller Interpretating Date/Time 12/17/2017 11:59:35
[2017-12-17 12:02] LABS: OVALOCYTES 1+ (NORMAL)
--- NOTE | 2017-12-17 12:27 | HHI.HP ---
HPI Service Family Medicine Primary Care Physician Lai Hernandez MD Admission Diagnosis Anemia, Traumatic Hematoma Diagnoses: International Travel<30 Days: No Contact w/Intl Traveler<30days: No Known Affected Area: No History of Present Illness Patient is a 77-year-old Male with PMHx of A. fib and aortic valve replacement (on warfarin), DM, HTN and failed Right knee replacement presents to the ED with complaints of increasing Left sided abdominal swelling and bruising that developed after he suffered a fall yesterday. Pt also complained of SOB and CP last night and this morning (now resolved). Yesterday as he was getting food from the fridge his Right knee "gave out" and he fell backwards hitting the left side of his abdomen with the handle of the walker. After the fall he reports he felt some burning sensation on left side of abdomen and noticed some bruising and swelling in the area which progressively increased. This morning he noticed that the bruising and swelling had increased and he also developed SOB and CP. Pt describes CP as mid-sternal non-radiating and has since resolved. Denies hitting his head or LOC. Denies abdominal pain, pain anywhere else in his body. is at bedside. Denies SOB in the past or hx of CHF. In the ED pt was found to be anemic with H/H of 6.2/20 and WBC count extremely elevated to 117. Review of Systems Constitutional: COMPLAINS OF: Fatigue, Weight gain, DENIES: Fever, Weight loss , Chills (15lbs), Night Sweats Eyes: DENIES: Blurred vision, Eye pain Ears, nose, mouth, throat: DENIES: Throat pain, Ear Pain Respiratory: COMPLAINS OF: Shortness of breath, DENIES: Cough Cardiovascular: COMPLAINS OF: Chest pain, DENIES: Palpitations, Lower Extremity Edema Gastrointestinal: DENIES: Abdominal pain, Bloody stools, Nausea, Vomiting Genitourinary: COMPLAINS OF: Urinary frequency (chronic), DENIES: Dysuria Musculoskeletal: COMPLAINS OF: Joint pain (Right knee), DENIES: Back pain Integumentary: DENIES: Rash Hematologic/lymphatic: COMPLAINS OF: Bruising Neurologic: COMPLAINS OF: Localized weakness (LE- chronic), DENIES: Headache Psychiatric: DENIES: Confusion Past Family Social History Past Medical History HTN DM--metformin stents placement, 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 lived in [facility], [address] in [place] smoking-quit 4 yr ago, 1-2 pack per yr alcohol- socially illicit drug- none Physical Exam Vital Signs Vital Signs Date Time Temp Pulse Resp B/P (MAP) Pulse Ox O2 Delivery O2 Flow Rate FiO2 12/17/17 09:50 97 Room Air 12/17/17 09:24 98.1 110 16 141/80 (100) 97 Physical Exam GENERAL: This is a well-nourished, well-developed patient, in no apparent distress. SKIN: Cool and dry. No rashes, 2 large areas of ecchymoses noted on Left side of abdomen approximately 4cef5um. HEAD: Atraumatic. Normocephalic. No temporal or scalp tenderness. EYES: Pupils equal round and reactive. Extraocular motions intact. No scleral icterus. No injection or drainage. ENT: Nose without bleeding, purulent drainage or septal hematoma. Throat without erythema, tonsillar hypertrophy or exudate. Uvula midline. Airway patent. NECK: Trachea midline. No JVD or lymphadenopathy. Supple, nontender, no meningeal signs. CARDIOVASCULAR: Regular rate and rhythm without murmurs, gallops, or rubs. RESPIRATORY: Clear to auscultation. Breath sounds equal bilaterally. No wheezes , rales, or rhonchi. GASTROINTESTINAL: obese abdomen soft, non-tender. hepato-splenomegaly and masses hard to assess. No guarding. MUSCULOSKELETAL: Extremities without clubbing, cyanosis. LE edema +2 around ankles BL.Right knee joint tenderness. No calf tenderness. Negative Homans sign bilaterally. Normal sensation NEUROLOGICAL: Awake and alert. Cranial nerves II through XII intact. Motor and sensory grossly within normal limits. Five out of 5 muscle strength in all muscle groups. Normal speech. Laboratory Laboratory Tests Test 12/17/17 09:45 12/17/17 10:45 12/17/17 12:05 White Blood Count 108.9 117.6 Red Blood Count 2.16 2.22 Hemoglobin 6.4 6.2 Hematocrit 21.0 21.5 Mean Corpuscular Volume 97.5 96.6 Mean Corpuscular Hemoglobin 29.7 28.0 Mean Corpuscular Hemoglobin Concent 30.4 29.0 Red Cell Distribution Width 19.9 19.5 Platelet Count 320 295 Mean Platelet Volume 9.6 8.8 CBC Comment AUTO DIFF AUTO DIFF Differential Total Cells Counted 200 100 Neutrophils % (Manual) 59 69 Band Neutrophils % 9 2 Lymphocytes % 5 2 Monocytes % 6 9 Basophils % 2 1 Neutrophils # (Manual) 96.9 102.3 Metamyelocytes 11 7 Myelocytes 5 6 Promyelocytes 5 3 Nucleated Red Blood Cells 5 6 Differential Comment FINAL DIFF MANUAL FINAL DIFF MANUAL Blastocytes 1 Platelet Estimate NORMAL NORMAL Platelet Morphology Comment NORMAL NORMAL Ovalocytes 1+ 1+ Prothrombin Time 22.1 Prothromb Time International Ratio 2.2 Activated Partial Thromboplast Time 30.8 Blood Urea Nitrogen 26 Creatinine 1.96 Random Glucose 186 Total Protein 6.5 Albumin 3.0 Calcium Level 8.5 Alkaline Phosphatase 115 Aspartate Amino Transf (AST/SGOT) 31 Alanine Aminotransferase (ALT/SGPT) 19 Total Bilirubin 0.7 Sodium Level 137 Potassium Level 5.2 Chloride Level 102 Carbon Dioxide Level 20.7 Anion Gap 14 Estimat Glomerular Filtration Rate 33 Lipase 122 Eosinophils % 1 Result Diagram: 12/17/17 1045 12/17/17 0945 Imaging Last Impressions Abdomen/Pelvis CT 12/17/17 1035 Signed Impressions: Service Date/Time: Sunday, December 17, 2017 11:17 - CONCLUSION: Intra-abdominal pelvic contents reveal no acute abnormality with intact bony structures. Large area left lateral abdomen extending into the anterior abdomen and pelvis subcutaneous tissues of soft tissue density most likely representing hematoma with associated hemorrhage or inflammatory change in the soft tissues around this. Jeferson Mcintyre MD Head CT 12/17/17 0000 Signed Impressions: Service Date/Time: Sunday, December 17, 2017 11:09 - CONCLUSION: Normal examination for a patient of this age. Jeferson Mcintyre MD Chest CT 12/17/17 0000 Signed Impressions: Service Date/Time: Sunday, December 17, 2017 11:17 - CONCLUSION: No acute intra-thoracic process. Bony structures are intact. Compensated atherosclerotic cardiovascular disease with cardiomegaly and pacemaker in place as well as stent across the aortic valve. Coronary calcifications noted. Jeferson Mcintyre MD Cervical Spine CT 12/17/17 0000 Signed Impressions: Service Date/Time: Sunday, December 17, 2017 11:09 - CONCLUSION: Extensive degenerative findings as described above. No acute bony injury. Jeferson Mcintyre MD Caprinmary jane VTE Risk Assessment Caprini VTE Risk Assessment: Mod/High Risk (score >= 2) Caprini Risk Assessment Model Point Value = 1 Point Value = 2 Point Value = 3 Point Value = 5 Age 41-60 Minor surgery BMI > 25 kg/m2 Swollen legs Varicose veins or History of unexplained or recurrent spontaneous Oral contraceptives or hormone replacement Sepsis (< 1 month) Serious lung disease, including pneumonia (< 1 month) Abnormal pulmonary function Acute myocardial infarction Congestive heart failure (< 1 month) History of inflammatory bowel disease Medical patient at bed rest Age 61-74 Arthroscopic surgery Major open surgery (> 45 min) Laparoscopic surgery (> 45 min) Malignancy Confined to bed (> 72 hours) Immobilizing plaster cast Central venous access Age >= 75 History of VTE Family history of VTE Factor V Leiden Prothrombin [id number] Lupus anticoagulant Anticardiolipin antibodies Elevated serum homocysteine Heparin-induced thrombocytopenia Other congenital or acquired thrombophilia Stroke (< 1 month) Elective arthroplasty Hip, pelvis, or leg fracture Acute spinal cord injury (< 1 month) Prophylaxis Regimen Total Risk Factor Score Risk Level Prophylaxis Regimen 0-1 Low Early ambulation 2 Moderate Order ONE of the following: *Sequential Compression Device (SCD) *Heparin 5000 units SQ BID 3-4 Higher Order ONE of the following medications: *Heparin 5000 units SQ TID *Enoxaparin/Lovenox 40 mg SQ daily (WT < 150 kg, CrCl > 30 mL/min) *Enoxaparin/Lovenox 30 mg SQ daily (WT < 150 kg, CrCl > 10-29 mL/min) *Enoxaparin/Lovenox 30 mg SQ BID (WT < 150 kg, CrCl > 30 mL/min) AND/OR *Sequential Compression Device (SCD) 5 or more Highest Order ONE of the following medications: *Heparin 5000 units SQ TID (Preferred with Epidurals) *Enoxaparin/Lovenox 40 mg SQ daily (WT < 150 kg, CrCl > 30 mL/min) *Enoxaparin/Lovenox 30 mg SQ daily (WT < 150 kg, CrCl > 10-29 mL/min) *Enoxaparin/Lovenox 30 mg SQ BID (WT < 150 kg, CrCl > 30 mL/min) AND *Sequential Compression Device (SCD) Assessment and Plan Assessment and Plan Patient is a 77-year-old Male with PMHx of A. fib and aortic valve replacement (on warfarin), DM, HTN and failed Right knee replacement presents to the ED with complaints of increasing Left sided abdominal swelling and bruising that developed after he suffered a fall yesterday. Pt also had complaints of CP and SOB. He was found to have WBC of 117 and elevated troponin. Admitted for further w/u. Code Status DNR Discussed Condition With SDW Dr. Henderson Problem List: (1) Anemia ICD Codes: D64.9 - Anemia, unspecified Status: Acute Plan: DDX: malignancy vs acute development of hematoma -On admission H/H of 6.4/21 -Pt with hx of fall last night and development of Left sided hematoma accompanied with sxs CP and SOB, now resolved CT showed: Hematoma with associated hemorrhage on Left side of abdomen. -currently being transfused 2 PRBC -f/u post transfusion H&H @ 2200 -f/u hemocult (2) Elevated white blood cell count ICD Codes: D72.829 - Elevated white blood cell count, unspecified Plan: Patient found to be afebrile with WBC- 117, Neutrophils-102 -heme/onc consulted, recommendations appreciated (3) Diabetes ICD Codes: E11.9 - Type 2 diabetes mellitus without complications Plan: -hold home po meds -hypoglycemia protocol -low dose SSI (4) hx right knee infection Status: Acute Plan: c/w doxycycline daily regimen (5) Atrial fibrillation ICD Codes: I48.91 - Unspecified atrial fibrillation Plan: Pt is asymptomatic EKG: A fib with RVR -continue to monitor -f/u repeat EKG -Pt placed on tele (6) Hypertension ICD Codes: I10 - Essential (primary) hypertension Plan: c/w HTN medications (7) Aortic valve replaced ICD Codes: Z95.2 - Presence of prosthetic heart valve Plan: -hold warfarin and asa (8) Shortness of breath ICD Codes: R06.02 - Shortness of breath Plan: -SOB now resolved, can be due to anemia -f/u echo (9) KARYN (acute kidney injury) ICD Codes: N17.9 - Acute kidney failure, unspecified Plan: -IVF -f/u am labs (10) Elevated d-dimer ICD Codes: R79.89 - Other specified abnormal findings of blood chemistry Plan: -Due to KARYN holding CT pulm angiogram -hematoma found of CT thus anticoagulation contraindicated (11) Nutrition, metabolism, and development symptoms ICD Codes: R63.8 - Other symptoms and signs concerning food and fluid intake Plan: Fluids: consider fluids after blood transfusion Electrolyte: continue to monitor, replete as needed Nutrition: Diabetic diet GI ppx: hx of ileal ulcer on protonix 40mg IV Physician Certification 2 Midnight Certification Type: Admission for Inpatient Services Order for Inpatient Services The services are ordered in accordance with Medicare regulations or non- Medicare payer requirements, as applicable. In the case of services not specified as inpatient-only, they are appropriately provided as inpatient services in accordance with the 2-midnight benchmark. Estimated LOS (days): 4 days is the estimated time the patient will need to remain in the hospital, assuming treatment plan goals are met and no additional complications. Post-Hospital Plan: Not yet determined Carlos Alberto Rao MD, R1 Dec 17, 2017 12:27
[2017-12-17 12:33] LABS: % SATURATION IRON PROFILE 5.3 % (20-50); IRON (FE) 17 MCG/DL (65-175); LDH SERUM 614 U/L (87-241); TOTAL IRON BINDING CAPACITY 323 MCG/DL (250-450)
[2017-12-17 12:36] LABS: FERRITIN 66 NG/ML (26-388)
[2017-12-17] MEDS ORDERED: MAGNESIUM HYDROXIDE SUSP 30 ML CUP PO PRN (13:30)
[2017-12-17] MEDS ORDERED: ONDANSETRON HCL 4 MG/2 ML VIAL IVP PRN (13:30)
[2017-12-17] MEDS ORDERED: NALOXONE HCL 0.4 MG/ML AMP IV PUSH PRN ×2 (13:30→14:45)
[2017-12-17] MEDS ORDERED: BISACODYL 10 MG SUPP RECTAL PRN (13:30)
[2017-12-17] MEDS ORDERED: SENNOSIDES 8.6 MG TAB PO PRN (13:30)
[2017-12-17] MEDS ORDERED: hydrALAZINE HCL 20 MG/ML VIAL IV PUSH PRN (13:45)
[2017-12-17] MEDS ORDERED: GLUCAGON 1 MG/ML VIAL OTHER PRN (13:45)
[2017-12-17] MEDS ORDERED: DEXTROSE 50% IN WATER 50 ML VIAL(D50) IV PUSH PRN (13:45)
[2017-12-17] MEDS ORDERED: PHYTONADIONE INJ 10 MG in SODIUM CHLORIDE 0.9% INJ 50 ML IV ONE (14:00)
[2017-12-17] MEDS ORDERED: ACETAMINOPHEN/HYDROcodone 325 MG/5 MG TAB PO PRN (14:45)
[2017-12-17] MEDS ORDERED: ACETAMINOPHEN 325 MG TAB PO PRN (14:45)
[2017-12-17] MEDS ORDERED: MORPHINE SULFATE 2 MG/ML INJ IV PUSH PRN (14:45)
[2017-12-17] MEDS: PANTOPRAZOLE SODIUM 40 MG VIAL IV PUSH SCH (16:03)
[2017-12-17] MEDS: PRAVASTATIN SOD 40 MG TAB PO SCH (16:03)
[2017-12-17] MEDS: ACETAMINOPHEN/HYDROcodone 325 MG/7.5 MG TAB PO PRN (16:04)
[2017-12-17] MEDS: LOSARTAN 50 MG TAB PO SCH (16:04)
[2017-12-17] MEDS: METOPROLOL TARTRATE 25 MG TAB PO SCH ×2 (16:04→21:00)
[2017-12-17] MEDS: SODIUM CHLOR 0.9% 1000 ML INJ 1,000 ML IV SCH ×2 (16:08→23:45)
[2017-12-17] MEDS: DOXYCYCLINE HYCLATE 50 MG CAP PO SCH ×2 (16:16→21:00)
[2017-12-17] MEDS: INSULIN ASPART SUPPLEMENTAL SCALE SQ SCH ×3 (16:16→21:40)
--- NOTE | 2017-12-17 17:36 | HHI.FPPN ---
Objective Vitals Vital Signs Date Time Temp Pulse Resp B/P (MAP) Pulse Ox O2 Delivery O2 Flow Rate FiO2 12/17/17 15:06 98.0 85 20 130/68 (88) 98 12/17/17 14:12 12/17/17 14:10 97.9 90 20 127/58 99 12/17/17 14:09 97.9 90 20 127/58 (81) 99 Room Air 12/17/17 13:52 97 21 12/17/17 12:47 98.1 103 15 12/17/17 12:47 146/67 12/17/17 12:39 98.5 100 15 134/62 97 12/17/17 09:50 97 Room Air 12/17/17 09:24 98.1 110 16 141/80 (100) 97 I/O 12/16/17 12/16/17 12/16/17 12/17/17 12/17/17 12/17/17 07:00 15:00 23:00 07:00 15:00 23:00 Intake Total 470 ml Balance 470 ml Intake Packed Cells 400 ml Blood Product IV Normal Saline Flush 70 ml Result Diagram: 12/17/17 1045 12/17/17 0945 Objective Remarks Peripheral smear review by Dr. 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 Noted were many mature neutrophils, immature forms including metamyelocytes, myelocytes and promyelocytes. Absence of eosinophilia and basophilia. Red blood cells predominantly normochromic and normocytic. Lites unremarkable. Condition may be seen in reactive and neoplastic conditions. Consideration of BCR-ABL Fish Hemoglobin 6.4 by pulsatile 108, 900 platelets 320,000 area. Creatinine 1.96. A/P Problem List: (1) Anemia ICD Codes: D64.9 - Anemia, unspecified Status: Acute Plan: DDX: malignancy vs acute development of hematoma -On admission H/H of 6./ -Pt with hx of fall last night and development of Left sided hematoma accompanied with sxs CP and SOB, now resolved -currently being transfused 1 PRBC -f/u post transfusion H&H @ 2200 -f/u hemocult (2) Elevated white blood cell count ICD Codes: D72.829 - Elevated white blood cell count, unspecified Plan: Patient found to be afebrile with WBC- 117, Neutrophils-102 -heme/onc consulted, recommendations appreciated (3) Diabetes ICD Codes: E11.9 - Type 2 diabetes mellitus without complications Plan: -hold home po meds -hypoglycemia protocol -low dose SSI (4) hx right knee infection Status: Acute (5) Atrial fibrillation ICD Codes: I48.91 - Unspecified atrial fibrillation (6) Hypertension ICD Codes: I10 - Essential (primary) hypertension Plan: c/w (7) Aortic valve replaced ICD Codes: Z95.2 - Presence of prosthetic heart valve Plan: -hold warfarin and asa (8) Shortness of breath ICD Codes: R06.02 - Shortness of breath (9) KARYN (acute kidney injury) ICD Codes: N17.9 - Acute kidney failure, unspecified (10) Nutrition, metabolism, and development symptoms ICD Codes: R63.8 - Other symptoms and signs concerning food and fluid intake Plan: Fluids: Electrolyte: Nutrition: Diabetic diet GI ppx: hx of ileal ulcer on protonix 40mg IV Tray Mckinney MD Dec 17, 2017 17:36
--- NOTE | 2017-12-17 18:30 | HHI.FPPN ---
Subjective Remarks Attending medical note: Delightful 77-year-old gentleman admitted after a fall at home, the development of a large left abdominal/flank hematoma and a hemoglobin of 6.4, heme hematocrit 21.0 in the emergency room. Patient has a complex past medical history which includes valvular heart disease status post TAVR at [facility], chronically infected right knee on doxycycline 100 mg twice a day per infectious disease Dr. Salinas, CK D stage III , atrial fibrillation and anticoagulation, type 2 diabetes mellitus, hypertension, coronary artery disease status post stent placement. Patient's primary physician is Dr. Lai Hernandez, his cognos consultant is Dr. Esther Posey. Patient takes his own INR is at home and they've been running in the 2-3 range. On 12/16/17 the patient was in his kitchen, reached down for something in the refrigerator, lost his footing with his right knee buckling and fell to the floor on his left side. For people to help him up, he went to bed feeling a burning sensation developed in his left flank area and by this morning he was short of breath, increasingly uncomfortable. [facility] was called. Patient was unaware of any elevated white blood cell count, he states he does have his blood work done frequently by Dr. Posey and he, to his knowledge has never had any abnormalities. Currently is being monitored with serial H&H's, transfusion as appropriate. 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 said some health issues. Objective Vitals Vital Signs Date Time Temp Pulse Resp B/P (MAP) Pulse Ox O2 Delivery O2 Flow Rate FiO2 12/17/17 15:06 98.0 85 20 130/68 (88) 98 12/17/17 14:12 12/17/17 14:10 97.9 90 20 127/58 99 12/17/17 14:09 97.9 90 20 127/58 (81) 99 Room Air 12/17/17 13:52 97 21 12/17/17 12:47 98.1 103 15 12/17/17 12:47 146/67 12/17/17 12:39 98.5 100 15 134/62 97 12/17/17 09:50 97 Room Air 12/17/17 09:24 98.1 110 16 141/80 (100) 97 I/O 12/16/17 12/16/17 12/16/17 12/17/17 12/17/17 12/17/17 07:00 15:00 23:00 07:00 15:00 23:00 Intake Total 470 ml Balance 470 ml Intake Packed Cells 400 ml Blood Product IV Normal Saline Flush 70 ml Result Diagram: 12/17/17 1045 12/17/17 0913 Objective Remarks Vital signs stable, initial blood pressure 141/80 pulse 110/m and irregularly irregular consistent with atrial fibrillation respirations 16 temperature afebrile. Gen. appearance: Older gentleman who does appear overweight, resting comfortably in a bedside chair, not short of breath and no somatic complaints. HEENT: Versed nonlocalizing, oropharynx unremarkable. PERRLA Neck: No bruits Lungs: Clear to auscultation. Cardiac: S1-S2, irregular rhythm, distant heart sounds, no definite murmurs appreciated. No S3. Abdomen: Soft and protuberant, no organomegaly or tenderness. Very notable large 20+ centimeter mass in the left lateral abdomen consistent with a hematoma Extremities: Indentation and a right knee arthroplasty scar that the patient states is the site of her previous draining infection Peripheral smear review by Dr. 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 Noted were many mature neutrophils, immature forms including metamyelocytes, myelocytes and promyelocytes. Absence of eosinophilia and basophilia. Red blood cells predominantly normochromic and normocytic. Lites unremarkable. Condition may be seen in reactive and neoplastic conditions. Consideration of BCR-ABL Fish Hemoglobin 6.4 by pulsatile 108, 900 platelets 320,000 area. Creatinine 1.96. A/P Assessment and Plan Clinical assessment: #1 fall at home with development of a left lateral flank/abdomen hematoma with a significant drop in hemoglobin to 6.4. Anticoagulation to be reversed, transfuse as appropriate. Currently the patient is relatively asymptomatic. #2 ASCVD with coronary disease, hypertension. #3 atrial fibrillation on chronic anticoagulation #4 CK D stage III probably secondary to diabetes type 2 #5 type 2 diabetes mellitus. Patient states his diabetes has always been controlled with metformin #6 status post 2 right knee arthroplasties with failures, tried to have a revision, has known that there is some type of infection, question etiology, in the right knee, followed by infectious disease on chronic doxycycline 100 mg twice a day #6 valvular heart disease status post TAVR #7 white blood cell count 108.9 thousand on admission, hemoglobin 6.4, MCV 97.5 , platelets 320,000. Peripheral smear review by Dr. 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 Noted were many mature neutrophils, immature forms including metamyelocytes, myelocytes and promyelocytes. Absence of eosinophilia and basophilia. Red blood cells predominantly normochromic and normocytic. Lites unremarkable. Condition may be seen in reactive and neoplastic conditions. Consideration of BCR-ABL Fish Hemoglobin 6.4 by pulsatile 108, 900 platelets 320,000 area. Creatinine 1.96. Problem List: (1) Anemia ICD Codes: D64.9 - Anemia, unspecified Status: Acute Plan: DDX: malignancy vs acute development of hematoma -On admission H/H of 6.4/21 -Pt with hx of fall last night and development of Left sided hematoma accompanied with sxs CP and SOB, now resolved -currently being transfused 1 PRBC -f/u post transfusion H&H @ 2200 -f/u hemocult (2) Elevated white blood cell count ICD Codes: D72.829 - Elevated white blood cell count, unspecified Plan: Patient found to be afebrile with WBC- 117, Neutrophils-102 -heme/onc consulted, recommendations appreciated (3) Diabetes ICD Codes: E11.9 - Type 2 diabetes mellitus without complications Plan: -hold home po meds -hypoglycemia protocol -low dose SSI (4) hx right knee infection Status: Acute (5) Atrial fibrillation ICD Codes: I48.91 - Unspecified atrial fibrillation (6) Hypertension ICD Codes: I10 - Essential (primary) hypertension Plan: c/w (7) Aortic valve replaced ICD Codes: Z95.2 - Presence of prosthetic heart valve Plan: -hold warfarin and asa (8) Shortness of breath ICD Codes: R06.02 - Shortness of breath (9) KARYN (acute kidney injury) ICD Codes: N17.9 - Acute kidney failure, unspecified (10) Nutrition, metabolism, and development symptoms ICD Codes: R63.8 - Other symptoms and signs concerning food and fluid intake Plan: Fluids: Electrolyte: Nutrition: Diabetic diet GI ppx: hx of ileal ulcer on protonix 40mg IV Tray Mckinney MD Dec 17, 2017 18:30
[2017-12-17] MEDS: LACTULOSE SYRUP 20 GM/30 ML CUP PO PRN (19:33)
[2017-12-17 21:41] LABS: AMORPHOUS SEDIMENT, URINE RARE; BACTERIA, URINE MOD /hpf; BILIRUBIN, URINE NEG (NEG); BLOOD, URINE TRACE (NEG); GLUCOSE,URINE NEG (NEG); HYALINE CAST, URINE 115 /lpf (RARE); KETONE, URINE NEG (NEG); MUCUS URINE FEW /lpf (OCC); NITRITE,URINE NEG (NEG); SQUAMOUS EPITHELIAL CELL URINE 5 /hpf (0-5); URINE COLOR DARK-YELLOW (YELLW/STRAW); URINE LEUKOCYTE ESTERASE LARGE (NEG)
[2017-12-17 23:39] LABS: FOLATE 8.9 NG/ML (3.1-17.5)
[2017-12-18] VITALS (16 sets, daily range): BP systolic 90–128; BP diastolic 47–72; PULSE 60–121; RESP 16–20; TEMP 97.5–98.5; O2SAT 95–98
[2017-12-18] MEDS: PANTOPRAZOLE SODIUM 40 MG VIAL IV PUSH SCH ×2 (00:46→13:15)
[2017-12-18 02:59] LABS: HEMATOCRIT 19.7 % (39.0-51.0); HEMOGLOBIN 6.4 GM/DL (13.0-17.0)
[2017-12-18 03:09] LABS: ALBUMIN 2.5 GM/DL (3.4-5.0); ALT (GPT) 31 U/L (12-78); AST (GOT) 49 U/L (15-37); BICARBONATE 24.9 MEQ/L (21.0-32.0); BLOOD UREA NITROGEN 34 MG/DL (7-18); CALCIUM 7.9 MG/DL (8.5-10.1); CHLORIDE 105 MEQ/L (98-107); GLOMERULAR FILTRATION RATE 28 ML/MIN (>89); GLUCOSE,RANDOM 123 MG/DL (74-106); SODIUM (NA) 139 MEQ/L (136-145)
[2017-12-18 03:12] LABS: ALKALINE PHOSPHATASE 83 U/L (45-117); TOTAL BILIRUBIN ADULT 1.2 MG/DL (0.2-1.0); TOTAL PROTEIN 5.4 GM/DL (6.4-8.2)
[2017-12-18] MEDS ORDERED: SODIUM CHLOR 0.9% 250 ML INJ 250 ML IV ONE (04:30)
[2017-12-18] MEDS ORDERED: FUROSEMIDE 20 MG/2 ML VIAL IV PUSH ONE ×2 (04:30→05:00)
[2017-12-18] MEDS ORDERED: PHYTONADIONE 5 MG/SWFI 5 ML ORAL SYR PO ONE (05:00)
[2017-12-18] MEDS: ACETAMINOPHEN/HYDROcodone 325 MG/7.5 MG TAB PO PRN ×2 (07:07→16:47)
--- NOTE | 2017-12-18 07:12 | MB ---
cc: SETH SINGH MD DATE OF CONSULTATION: 12/17/2017 CHIEF COMPLAINT 1. Leukocytosis 2. Anemia 3. Abdominal wall hematoma 4. History of chronic anticoagulation with warfarin. HISTORY OF PRESENT ILLNESS Mr. Kaye is a 69 year old with history of atrial fibrillation, aortic valve replacement status post TAVR procedure. Diabetes, hypertension, failed right knee replacement, who was admitted to the hospital and presented to the emergency room on December 17 with left-sided abdominal wall swelling and bruising and pain after fall at home. He reports yesterday he was reaching down to get a potato out of one of the drawers in his kitchen, at that time his right knee which is the leg with the failed knee replacement gave out and he fell backwards hitting his left side and abdomen on his walker. After the fall which occurred on December 16, 2017 he had some mild burning which resolved, However, in the morning on December 17 he developed worsening pain as well as bruising. He presented to the emergency room in laboratory studies revealed a white blood cell count of 108,000, hemoglobin of 6.4, a platelet count of 320,000. His differential showed 59% neutrophils 9% bands, 6% monos, 2% basos, also found were metamyelocytes, myelocytes, promyelocytes, nucleated red cells and 1% blast cells. The differential was sustained on repeat CBC other studies reveal haptoglobin of 138, vitamin B12 of 1446, a folate of 8.9. Iron study 17 and TIBC 323, a percent sat of 5.3 and ferritin of 66. Coags show fibrinogen of 413 , and INR of 2.2 PAST MEDICAL HISTORY: Hypertension Diabetes. Kidney stones status lithotripsy in atrial fibrillation on warfarin therapy. PAST SURGICAL HISTORY 1. TAVR 6 months ago. 2. External hemorrhoid 2011 3. Right knee replacement and 2013 4. Chronic right knee infection. ALLERGIES No known drug allergies. FAMILY HISTORY Mother with history of pancreatic cancer, Father with Alzheimer's disease, son from acute leukemia. SOCIAL HISTORY The patient lives with in [facility], former smoker and drinks alcohol intermittently and illegal drug use. PHYSICAL EXAMINATION IN GENERAL: Overweight man sitting in bedside chair in no distress. NECK: Supple with no palpable lymphadenopathy. CARDIOVASCULAR SYSTEM: Regular rate and rhythm with no murmurs. RESPIRATORY: Clear to auscultation bilaterally. ABDOMEN: Protuberant abdomen. Tender to palpation on left side with increased abdominal wall girth on the left side and bruising present. EXTREMITIES: Extremities: With chronic bilateral lower extremity swelling and chronic right knee swelling. NEUROLOGIC: Grossly nonfocal. PSYCHIATRIC: Appropriate mood and affect. IMAGING STUDIES Abdominal pelvis CT from December 17 with intra-abdominal pelvic contents with no acute abnormality with intact many structures large left lateral abdomen extending to the anterior abdominal and pelvis subcutaneous tissues soft tissue density was severe appearing hematoma with associated hemorrhage. ASSESSMENT/PLAN 1. Large abdominal wall hematoma due to trauma with associated decline in hemoglobin. Status post reversal of INR with 10 mg of IV vitamin K. 2. Chronic anticoagulation with warfarin due to heart issues including atrial fibrillation, We will hold Warfarin given decline in hemoglobin and large abdominal wall hematoma. The patient will likely need to have cardiology consult to assess risks of benefits of continuing the warfarin 3. History of atrial fibrillation on chronic warfarin therapy 4. Leukocytosis with white blood cell count 108,000. The patient is asymptomatic. He is not acutely ill. On differential multiple mature and immature cells are present. 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 Pathologic interpretation reveals a markedly elevated white blood cell count. The granulocytes are composed of a mature neutrophils as well as prominent population of more immature forms including metamyelocytes, myelocytes and promyelocytes many nucleated red cells present. These peripheral blood findings can be seen in both reactive and neoplastic conditions and in light of the peripheral blood findings a chronic myeloproliferative neoplasm should be excluded. Blood has been sent for flow cytometry and PCR for BCR/ABL to evaluate for chronic myelogenous leukemia On Wednesday will have bone marrow biopsy performed. 5. Anemia due hematoma after fall: We will continue to monitor hemoglobin. Status post transfusion, 1 unit packed red blood cells. MD AMADA Soares/ynes /11:52 PM /6:41 AM SAMPSON
[2017-12-18] MEDS: INSULIN ASPART SUPPLEMENTAL SCALE SQ SCH ×4 (08:43→20:56)
[2017-12-18] MEDS: LOSARTAN 50 MG TAB PO SCH (09:00)
[2017-12-18] MEDS: DOXYCYCLINE HYCLATE 50 MG CAP PO SCH ×2 (09:21→20:56)
[2017-12-18] MEDS: PRAVASTATIN SOD 40 MG TAB PO SCH (09:22)
[2017-12-18] MEDS: METOPROLOL TARTRATE 25 MG TAB PO SCH ×2 (09:22→20:56)
--- NOTE | 2017-12-18 09:44 | PD.ONC.PN ---
Subjective Subjective Remarks Afebrile overnight. Patient resting in chair. reports he feels short of breath when he lays flat, and when he has heavy exertion. Denies confusion or dizziness. Objective Data Date Time Temp Pulse Resp B/P (MAP) Pulse Ox O2 Delivery O2 Flow Rate FiO2 12/18/17 09:16 98.4 73 18 105/52 97 12/18/17 06:55 98.5 88 18 99/59 96 12/18/17 05:31 98.5 20 101/53 (69) 95 12/18/17 03:02 67 12/18/17 01:38 97.7 60 16 103/52 95 12/18/17 00:53 96 12/18/17 00:36 97.7 61 16 97/51 (66) 97 12/18/17 00:09 67 12/17/17 22:30 98.0 72 18 92/52 95 12/17/17 21:23 98.1 78 18 90/47 (61) 97 12/17/17 20:09 59 12/17/17 18:00 66 12/17/17 15:06 98.0 85 20 130/68 (88) 98 12/17/17 14:12 12/17/17 14:10 97.9 90 20 127/58 99 12/17/17 14:09 97.9 90 20 127/58 (81) 99 Room Air 12/17/17 13:52 97 21 12/17/17 12:47 98.1 103 15 12/17/17 12:47 146/67 12/17/17 12:39 98.5 100 15 134/62 97 12/17/17 09:50 97 Room Air 12/18/17 12/18/17 12/18/17 07:00 15:00 23:00 Intake Total 450 ml 400 ml Balance 450 ml 400 ml Result Diagram: 12/18/1723112/18/17231 Laboratory Results Laboratory Tests Test 12/17/17 09:45 12/17/17 10:45 12/17/17 12:05 12/17/17 13:50 White Blood Count 108.9 TH/MM3 117.6 TH/MM3 Red Blood Count 2.16 MIL/MM3 2.22 MIL/MM3 Hemoglobin 6.4 GM/DL 6.2 GM/DL Hematocrit 21.0 % 21.5 % Mean Corpuscular Volume 97.5 FL 96.6 FL Mean Corpuscular Hemoglobin 29.7 PG 28.0 PG Mean Corpuscular Hemoglobin Concent 30.4 % 29.0 % Red Cell Distribution Width 19.9 % 19.5 % Platelet Count 320 TH/MM3 295 TH/MM3 Mean Platelet Volume 9.6 FL 8.8 FL CBC Comment AUTO DIFF AUTO DIFF Differential Total Cells Counted 200 100 Neutrophils % (Manual) 59 % 69 % Band Neutrophils % 9 % 2 % Lymphocytes % 5 % 2 % Monocytes % 6 % 9 % Basophils % 2 % 1 % Neutrophils # (Manual) 96.9 TH/MM3 102.3 TH/MM3 Metamyelocytes 11 % 7 % Myelocytes 5 % 6 % Promyelocytes 5 % 3 % Nucleated Red Blood Cells 5 /100 WBC 6 /100 WBC Differential Comment FINAL DIFF MANUAL FINAL DIFF MANUAL Blastocytes 1 % Platelet Estimate NORMAL NORMAL Platelet Morphology Comment NORMAL NORMAL Ovalocytes 1+ 1+ Haptoglobin 130 MG/DL Prothrombin Time 22.1 SEC Prothromb Time International Ratio 2.2 RATIO Activated Partial Thromboplast Time 30.8 SEC Fibrinogen 413 mg/dL Blood Urea Nitrogen 26 MG/DL Creatinine 1.96 MG/DL Random Glucose 186 MG/DL Total Protein 6.5 GM/DL Albumin 3.0 GM/DL Calcium Level 8.5 MG/DL Alkaline Phosphatase 115 U/L Aspartate Amino Transf (AST/SGOT) 31 U/L Alanine Aminotransferase (ALT/SGPT) 19 U/L Total Bilirubin 0.7 MG/DL Sodium Level 137 MEQ/L Potassium Level 5.2 MEQ/L Chloride Level 102 MEQ/L Carbon Dioxide Level 20.7 MEQ/L Anion Gap 14 MEQ/L Estimat Glomerular Filtration Rate 33 ML/MIN Uric Acid 14.5 MG/DL Iron Level 17 MCG/DL Total Iron Binding Capacity 323 MCG/DL Percent Iron Saturation 5.3 % Ferritin 66 NG/ML Lactate Dehydrogenase 614 U/L Troponin I LESS THAN 0.02 NG/ML Lipase 122 U/L Eosinophils % 1 % Blood Smear Pathologist Review D-Dimer Quantitative (PE/DVT) 2.92 MG/L FEU B-Type Natriuretic Peptide 404 PG/ML Test 12/17/17 19:00 12/17/17 22:25 12/18/17 02:32 Urine Color DARK-YELLOW Urine Turbidity HAZY Urine pH 5.0 Urine Specific [facility] 1.033 Urine Protein 30 mg/dL Urine Glucose (UA) NEG mg/dL Urine Ketones NEG mg/dL Urine Occult Blood TRACE Urine Nitrite NEG Urine Bilirubin NEG Urine Urobilinogen LESS THAN 2.0 MG/DL Urine Leukocyte Esterase LARGE Urine RBC 18 /hpf Urine WBC 137 /hpf Urine Squamous Epithelial Cells 5 /hpf Urine Amorphous Sediment RARE Urine Bacteria MOD /hpf Urine Hyaline Casts 115 /lpf Urine Mucus FEW /lpf Microscopic Urinalysis Comment CULTURE INDICATED Troponin I 0.85 NG/ML 0.68 NG/ML Vitamin B12 Level 1446 PG/ML Folate 8.9 NG/ML Hemoglobin 6.4 GM/DL Hematocrit 19.7 % Blood Urea Nitrogen 34 MG/DL Creatinine 2.30 MG/DL Random Glucose 123 MG/DL Total Protein 5.4 GM/DL Albumin 2.5 GM/DL Calcium Level 7.9 MG/DL Alkaline Phosphatase 83 U/L Aspartate Amino Transf (AST/SGOT) 49 U/L Alanine Aminotransferase (ALT/SGPT) 31 U/L Total Bilirubin 1.2 MG/DL Sodium Level 139 MEQ/L Potassium Level 5.2 MEQ/L Chloride Level 105 MEQ/L Carbon Dioxide Level 24.9 MEQ/L Anion Gap 9 MEQ/L Estimat Glomerular Filtration Rate 28 ML/MIN Culture Results Microbiology Date/Time Source Procedure Growth Status 12/17/17 22:25 Blood Peripheral Aerobic Blood Culture Pending Received 12/17/17 22:25 Blood Peripheral Anaerobic Blood Culture Pending Received 12/17/17 22:20 Blood Peripheral Aerobic Blood Culture Pending Received 12/17/17 22:20 Blood Peripheral Anaerobic Blood Culture Pending Received 12/17/17 19:00 Urine Clean Catch Urine Culture Pending Received Imaging Studies Last 24 hours Impressions Abdomen/Pelvis CT 12/17/17 1035 Signed Impressions: Service Date/Time: Sunday, December 17, 2017 11:17 - CONCLUSION: Intra-abdominal pelvic contents reveal no acute abnormality with intact bony structures. Large area left lateral abdomen extending into the anterior abdomen and pelvis subcutaneous tissues of soft tissue density most likely representing hematoma with associated hemorrhage or inflammatory change in the soft tissues around this. Jeferson Mcintyre MD Administered Medications Medications (Trade) Dose Ordered Sig/Jewels Route PRN Reason Start Time Stop Time Status Last Admin Dose Admin Doxycycline Hyclate (Vibramycin) 50 mg BID PO 12/17/17 14:00 12/18/17 09:21 Losartan Potassium (Cozaar) 50 mg DAILY PO 12/17/17 14:00 Future Hold 12/17/17 16:04 Pravastatin Sodium (Pravachol) 40 mg DAILY PO 12/17/17 14:00 12/18/17 09:22 Metoprolol Tartrate (Lopressor) 25 mg BID PO 12/17/17 14:00 12/18/17 09:22 Lactulose (Lactulose Liq) 30 ml DAILY PRN PO SEVERE CONSITIPATION 12/17/17 13:30 12/17/17 19:33 Sodium Chloride 1,000 ml @ 100 mls/hr Q10H IV 12/17/17 13:45 12/17/17 16:08 Insulin Aspart (NovoLOG SUPPLEMENTAL SCALE) 1 ACHS SLIDING SCALE SQ 12/17/17 17:00 12/17/17 16:16 Pantoprazole Sodium (Protonix Inj) 40 mg Q12H IV PUSH 12/17/17 13:45 12/18/17 00:46 Acetaminophen/ Hydrocodone Bitart ([place] 7.5-325 Mg) 1 tab Q4H PRN PO PAIN SCALE 6 TO 10 12/17/17 14:45 12/18/17 07:07 Sodium Chloride 250 ml @ 15 mls/hr ONCE ONCE IV 12/18/17 04:30 12/18/17 21:09 12/18/17 08:14 Objective Remarks GENERAL: chronically ill appearing male, sitting up in chair next to bed in nad. SKIN: Warm and dry. chronic skin changes lower extremities HEAD: Normocephalic. EYES: No injection or drainage. NECK: Supple, trachea midline. CARDIOVASCULAR: IRR RESPIRATORY: diminished at bases, anterior ramos clear. GASTROINTESTINAL: Abdomen soft, non-tender, nondistended. EXTREMITIES: No cyanosis NEUROLOGICAL: awake and alert, normal speech Assessment/Plan Assessment 77y/o female admitted with abdominal wall hematoma after fall. Hematology consulted for leukocytosis. History of chronic anticoagulation with warfarin. history of atrial fibrillation, aortic valve replacement status post TAVR procedure. 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 Plan 1. leukocytosis: awaiting BCR/ABL. will need bone marrow biopsy Wednesday in invasive radiology. 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 no sign of leukostasis. 2. Large Abdominal wall hematoma: hgb dropped overnight. Agree with pRBC ordered. await coag profile. 3. Anticoagulation with Warfarin: would hold as long as there is active bleeding. will defer to cardiology to determine risk/benefits of holding/ continuing Coumadin with patient's heart issues Attending Statement The exam, history, and the medical decision-making described in the above note were completed with the assistance of the mid-level provider. I reviewed and agree with the findings presented. I attest that I had a [id number] encounter with the patient on the same day, and personally performed and documented my assessment and findings in the medical record. 77 yoM admitted with anemia after fall at home 1. Leukocytosis--suspicious for CML. Awaiting results BCR ABL, flow cytometry. Bone marrow biopsy on Wednesday. No signs of leukostasis. 2. Anemia: Hematoma present. due to fall while on warfarin. s/p transfusion of 2 units of PRBC. s/p reversal of INR with vitamin K. Will continue to trend. 3. Cardiology team following for elevated troponin and history of atrial fibrillation Aby Martins Dec 18, 2017 09:44 Sandhya Montilla MD Dec 18, 2017 13:40
--- NOTE | 2017-12-18 11:12 | MB ---
cc: LOTUS COREY MD DATE OF CONSULTATION: 12/18/2017. REASON FOR CONSULTATION: Elevated troponin. HISTORY OF PRESENT ILLNESS: The patient is a very pleasant 69-year-old gentleman who sees my partner, Dr. Posey, who does have a history of aortic valve replacement (TAVR done at [facility] 2016) as well as coronary artery disease with multiple prior stents placed. The patient presents after a fall which resulted in a significant hematoma. The patient reports that during transport he did become quite short of breath. He was brought to the hospital and his laboratory values were significantly altered with an initial hemoglobin of 26.2 and white count of 108.9. He has been given blood and he is already feeling much better. During his workup, his troponin was slightly elevated, and thus I was consulted. Again currently the patient is asymptomatic denying any chest pain, any residual shortness of breath, lightheadedness or dizziness. PAST MEDICAL HISTORY: 1. Coronary artery disease status post multiple prior stents. 2. Hypertension. 3. Diabetes. 4. Obesity. 5. Atrial fibrillation on warfarin. 6. [employer] pacemaker. CURRENT MEDICATIONS: 1. Cozaar. 2. Pravachol. 3. Lopressor 25 milligrams twice a day. ALLERGIES: NO KNOWN DRUG ALLERGIES. PHYSICAL EXAMINATION: VITAL SIGNS: Afebrile, pulse 73, respiratory rate 18, blood pressure 105/52, satting 97%. GENERAL: A pleasant obese gentleman in no distress. NECK: No jugular venous distention. LUNGS: Clear to auscultation bilaterally. CARDIOVASCULAR: Irregularly irregular rhythm. No murmurs appreciated. ABDOMEN: Benign. EXTREMITIES: 1+ chronic-appearing lower extremity edema. LABORATORY DATA: White count 117.6, hemoglobin 6.2, platelets 295,000. Sodium 139, potassium 5.2, chloride 105, bicarb 24.9, BUN 34, creatinine 2.3, glucose 123. Troponins are 0.02, 0.85, 0.68. IMAGING STUDIES: CT pelvis showed a large hematoma with associated hemorrhage and inflammatory change. Chest CT showed no acute process. EKGS: EKG shows atrial fibrillation with occasional ventricular paced beats. IMPRESSION: 1. Elevated troponin: The patient's elevated troponin is quite nonspecific in this setting of his severe anemia and chronic kidney disease, and likely reflects demand-mediated ischemia more than acute coronary syndrome. He has no current chest pain or chest pain with the events yesterday. I will have him undergo an echocardiogram to ensure his LV function is normal but otherwise would treat him quite conservatively with regard to ischemia given he would not be a cardiac catheterization candidate at this point given his severe anemia. Further recommendations will be based on his echocardiogram and his clinical course, but again would expect quite conservative cardiac care at this point. Thank you again for the opportunity to participate in this patient's care. MD RIA Blake/RYAN /9:30 AM /10:56 AM
--- NOTE | 2017-12-18 12:22 | PD.CONS ---
HPI History of Present Illness This is a 77-year-old Male with PMHx of A. fib and aortic valve replacement 6 months ago (on warfarin), DM, HTN and failed Right knee replacement presents to the ED for evaluation of large hematoma after he suffered a fall yesterday. Pt also complained of SOB and CP which has resolved now. Patient was found to have acute anemia, hgb on admission 6.2. CBC with marked elevation in WBC 117.6. Cardiology on the case for CP and high troponin levels, plans for echo . Hematology on the case, work up to r/o leukemia in process, plans for bone marrow bx on Wednesday. GI have been consulted for anemia. Patient had hx of anemia 6 yrs ago, during that time, he had evaluation with EGD/colonoscopy, CE and that revealed ulcer in the ileum which eventually healed and hasn't had issues with anemia since. Patient denies nausea, vomiting, hematemesis, hematochezia or melena. 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, healed itself, 2011 kidney stones, lithotripsy in the A fib- on warfarin Past Surgical History Aortic valve repair, TAVAR 6months ago pace maker External hemorrhoid removed, 2011 Right Knee replacement 2013--failed-- repair--failed 2014 doxycycline low dose-- since a yr ago, chronic Right knee infection (Daniella Tirado) Coded Allergies: No Known Allergies (Verified Allergy, Severe, 12/17/17) Medications Current Medications Medications (Trade) Dose Ordered Sig/Jewels Route Start Time Stop Time Status Last Admin (NS Flush) 2 ml UNSCH PRN IV FLUSH 12/17/17 09:45 (Vibramycin) 50 mg BID PO 12/17/17 14:00 12/18/17 09:21 (Cozaar) 50 mg DAILY PO 12/17/17 14:00 Future Hold 12/17/17 16:04 (Pravachol) 40 mg DAILY PO 12/17/17 14:00 12/18/17 09:22 (Lopressor) 25 mg BID PO 12/17/17 14:00 12/18/17 09:22 (Zofran Inj) 4 mg Q6H PRN IVP 12/17/17 13:30 (Restoril) 15 mg HS PRN PO 12/17/17 13:30 (Narcan Inj) 0.4 mg UNSCH PRN IV PUSH 12/17/17 13:30 (Milk Of Magnesia Liq) 30 ml Q12H PRN PO 12/17/17 13:30 (Senokot) 17.2 mg Q12H PRN PO 12/17/17 13:30 (Dulcolax Supp) 10 mg DAILY PRN RECTAL 12/17/17 13:30 (Lactulose Liq) 30 ml DAILY PRN PO 12/17/17 13:30 12/17/17 19:33 Sodium Chloride 1,000 ml @ 100 mls/hr Q10H IV 12/17/17 13:45 12/17/17 16:08 (Apresoline Inj) 10 mg Q6H PRN IV PUSH 12/17/17 13:45 (D50w (Vial) Inj) 50 ml UNSCH PRN IV PUSH 12/17/17 13:45 (Glucagon Inj) 1 mg UNSCH PRN OTHER 12/17/17 13:45 (NovoLOG SUPPLEMENTAL SCALE) 1 ACHS SLIDING SCALE SQ 12/17/17 17:00 12/17/17 16:16 (Protonix Inj) 40 mg Q12H IV PUSH 12/17/17 13:45 12/18/17 00:46 (Tylenol) 650 mg Q6H PRN PO 12/17/17 14:45 ([place] 5-325 Mg) 1 tab Q4H PRN PO 12/17/17 14:45 ([place] 7.5-325 Mg) 1 tab Q4H PRN PO 12/17/17 14:45 12/18/17 07:07 (Morphine Inj) 4 mg Q3H PRN IV PUSH 12/17/17 14:45 (Narcan Inj) 0.4 mg UNSCH PRN IV PUSH 12/17/17 14:45 Sodium Chloride 250 ml @ 15 mls/hr ONCE ONCE IV 12/18/17 04:30 12/18/17 21:09 12/18/17 08:14 Family History Mother had pancreatic cancer Social History smoking-quit 4 yr ago alcohol- socially illicit drug- none (Amawi,Daniella GRAPHIC TECHNICIAN) Review of Systems Constitutional: COMPLAINS OF: Fatigue Endocrine: DENIES: Polyuria Eyes: DENIES: Double Vision Ears, nose, mouth, throat: DENIES: Hoarseness Respiratory: COMPLAINS OF: Shortness of breath Cardiovascular: DENIES: Lower Extremity Edema Gastrointestinal: COMPLAINS OF: Abdominal pain, DENIES: Black stools, Bloody stools, Constipation, Diarrhea, Nausea, Vomiting, Difficulty Swallowing, Anorexia, Odynophagia, Swelling of Abdomen, Heartburn, Hematemesis Genitourinary: DENIES: Hematuria Musculoskeletal: DENIES: Neck pain Integumentary: DENIES: Jaundice Hematologic/lymphatic: COMPLAINS OF: Bruising Immunologic/allergic: DENIES: Eczema Neurologic: DENIES: Abnormal gait Psychiatric: DENIES: Anxiety (Daniella Tirado) GI Exam Vitals I&O Vital Signs Date Time Temp Pulse Resp B/P (MAP) Pulse Ox O2 Delivery O2 Flow Rate FiO2 12/18/17 10:48 98.5 71 18 90/47 98 12/18/17 10:14 98.0 77 18 92/53 96 12/18/17 09:16 98.4 73 18 105/52 97 12/18/17 06:55 98.5 88 18 99/59 96 12/18/17 05:31 98.5 20 101/53 (69) 95 12/18/17 03:02 67 12/18/17 01:38 97.7 60 16 103/52 95 12/18/17 00:53 96 12/18/17 00:36 97.7 61 16 97/51 (66) 97 12/18/17 00:09 67 12/17/17 22:30 98.0 72 18 92/52 95 12/17/17 21:23 98.1 78 18 90/47 (61) 97 12/17/17 20:09 59 12/17/17 18:00 66 12/17/17 15:06 98.0 85 20 130/68 (88) 98 12/17/17 14:12 12/17/17 14:10 97.9 90 20 127/58 99 12/17/17 14:09 97.9 90 20 127/58 (81) 99 Room Air 12/17/17 13:52 97 21 12/17/17 12:47 98.1 103 15 12/17/17 12:47 146/67 12/17/17 12:39 98.5 100 15 134/62 97 I/O 12/17/17 12/17/17 12/17/17 12/18/17 12/18/17 12/18/17 07:00 15:00 23:00 07:00 15:00 23:00 Intake Total 470 ml 355 ml 450 ml 400 ml Output Total 150 ml Balance 470 ml 205 ml 450 ml 400 ml Intake Oral 300 ml IV Total 55 ml Packed Cells 400 ml 400 ml 400 ml Blood Product IV Normal Saline Flush 70 ml 50 ml Output Urine Total 150 ml Imaging Last Impressions Abdomen/Pelvis CT 12/17/17 1035 Signed Impressions: Service Date/Time: Sunday, December 17, 2017 11:17 - CONCLUSION: Intra-abdominal pelvic contents reveal no acute abnormality with intact bony structures. Large area left lateral abdomen extending into the anterior abdomen and pelvis subcutaneous tissues of soft tissue density most likely representing hematoma with associated hemorrhage or inflammatory change in the soft tissues around this. Jeferson Mcintyre MD Head CT 12/17/17 0000 Signed Impressions: Service Date/Time: Sunday, December 17, 2017 11:09 - CONCLUSION: Normal examination for a patient of this age. Jeferson Mcintyre MD Chest CT 12/17/17 0000 Signed Impressions: Service Date/Time: Sunday, December 17, 2017 11:17 - CONCLUSION: No acute intra-thoracic process. Bony structures are intact. Compensated atherosclerotic cardiovascular disease with cardiomegaly and pacemaker in place as well as stent across the aortic valve. Coronary calcifications noted. Jeferson Mcintyre MD Cervical Spine CT 12/17/17 0000 Signed Impressions: Service Date/Time: Sunday, December 17, 2017 11:09 - CONCLUSION: Extensive degenerative findings as described above. No acute bony injury. Jeferson Mcintyre MD Laboratory Test 12/17/17 12:05 12/17/17 13:50 12/17/17 19:00 12/17/17 22:25 D-Dimer Quantitative (PE/DVT) 2.92 MG/L FEU B-Type Natriuretic Peptide 404 PG/ML Urine Color DARK-YELLOW Urine Turbidity HAZY Urine pH 5.0 Urine Specific [place] 1.033 Urine Protein 30 mg/dL Urine Glucose (UA) NEG mg/dL Urine Ketones NEG mg/dL Urine Occult Blood TRACE Urine Nitrite NEG Urine Bilirubin NEG Urine Urobilinogen LESS THAN 2.0 MG/DL Urine Leukocyte Esterase LARGE Urine RBC 18 /hpf Urine WBC 137 /hpf Urine Squamous Epithelial Cells 5 /hpf Urine Amorphous Sediment RARE Urine Bacteria MOD /hpf Urine Hyaline Casts 115 /lpf Urine Mucus FEW /lpf Microscopic Urinalysis Comment CULTURE INDICATED Troponin I 0.85 NG/ML Vitamin B12 Level 1446 PG/ML Folate 8.9 NG/ML Test 12/18/17 02:32 Hemoglobin 6.4 GM/DL Hematocrit 19.7 % Blood Urea Nitrogen 34 MG/DL Creatinine 2.30 MG/DL Random Glucose 123 MG/DL Total Protein 5.4 GM/DL Albumin 2.5 GM/DL Calcium Level 7.9 MG/DL Alkaline Phosphatase 83 U/L Aspartate Amino Transf (AST/SGOT) 49 U/L Alanine Aminotransferase (ALT/SGPT) 31 U/L Total Bilirubin 1.2 MG/DL Sodium Level 139 MEQ/L Potassium Level 5.2 MEQ/L Chloride Level 105 MEQ/L Carbon Dioxide Level 24.9 MEQ/L Anion Gap 9 MEQ/L Estimat Glomerular Filtration Rate 28 ML/MIN Troponin I 0.68 NG/ML Date/Time Source Procedure Growth Status 12/17/17 22:25 Blood Peripheral Aerobic Blood Culture - Preliminary NO GROWTH IN 1 DAY Resulted 12/17/17 22:25 Blood Peripheral Anaerobic Blood Culture - Preliminary NO GROWTH IN 1 DAY Resulted 12/17/17 19:00 Urine Clean Catch Urine Culture Pending Received Physical Examination HEENT: normocephalic; atraumatic; no jaundice. CHEST: Chest is clear to auscultation and percussion. CARDIAC: Regular rate and rhythm with no murmur gallop or rubs. ABDOMEN: Soft, nondistended, tender in area of large hematoma, obese, bowel sounds are present in all four quadrants. EXTREMITIES: +2 around ankles SKIN: large area of ecchymoses noted on Left side of abdomen BOUNTY TRAPPER: No focal deficits; alert and oriented times three. (Daniella Tirado) Assessment and Plan Plan - Severe acute anemia- hgb on admission 6.2. Currently receiving blood. likely multifactorial, possible secondary to ? GI source, hematoma or leukemia Pt with large hematoma on the left side of abd resulted by a fall yesterday Patient denies nausea, vomiting, hematemesis, hematochezia or melena. CT of abd/pel showed hematoma with associated hemorrhage or inflammatory change in the soft tissues around this. - Leukocytosis- Hematology on the case, work up to r/o leukemia in process, plans for bone marrow bx on Wednesday. - High troponin/CP- Cardiology on the case for CP and high troponin levels, plans for echo . - Hx of ileum ulcer 6 yrs ago- he had evaluation with EGD/colonoscopy, CE and that revealed ulcer in the ileum which eventually healed and hasn't had issues with anemia since. - PMHx of A. fib and aortic valve replacement 6 months ago (on warfarin), DM, HTN Plan: - [place] - We have discussed doing EGD/colonoscopy, pt not very keen at this point states he is certain the source is the hematoma, but will reassess next week pending cardiology and hematology work up and clinical progress - Monitor hh - Transfuse as needed - cont. Protonix - Patient seen and examined by Dr. King and myself and this note is written on his behalf. (Daniella Tirado) Physician Comments Patient seen and examined Agree with above Continue with current supportive care Monitor labs Patient wanting to hold off on endoscopy and wants to await hematology and cardiology evaluations (Shun King MD) Daniella Tirado Dec 18, 2017 12:22 Shun King MD Dec 18, 2017 12:41
--- NOTE | 2017-12-18 13:03 | HHI.FPPN ---
Subjective Remarks Pt seen and examined this morning. Pt has been afebrile, vital signs have been stable. He denies chest pain, shortness of breath. He continues to endorse abdominal discomfort of his left lower abdomen due to hematoma. (Raul Pat MD R3) Objective Vitals Vital Signs Date Time Temp Pulse Resp B/P (MAP) Pulse Ox O2 Delivery O2 Flow Rate FiO2 12/18/17 10:48 98.5 71 18 90/47 98 12/18/17 10:14 98.0 77 18 92/53 96 12/18/17 09:16 98.4 73 18 105/52 97 12/18/17 06:55 98.5 88 18 99/59 96 12/18/17 05:31 98.5 20 101/53 (69) 95 12/18/17 03:02 67 12/18/17 01:38 97.7 60 16 103/52 95 12/18/17 00:53 96 12/18/17 00:36 97.7 61 16 97/51 (66) 97 12/18/17 00:09 67 12/17/17 22:30 98.0 72 18 92/52 95 12/17/17 21:23 98.1 78 18 90/47 (61) 97 12/17/17 20:09 59 12/17/17 18:00 66 12/17/17 15:06 98.0 85 20 130/68 (88) 98 12/17/17 14:12 12/17/17 14:10 97.9 90 20 127/58 99 12/17/17 14:09 97.9 90 20 127/58 (81) 99 Room Air 12/17/17 13:52 97 21 12/17/17 12:47 98.1 103 15 12/17/17 12:47 146/67 I/O 12/17/17 12/17/17 12/17/17 12/18/17 12/18/17 12/18/17 07:00 15:00 23:00 07:00 15:00 23:00 Intake Total 470 ml 355 ml 450 ml 400 ml Output Total 150 ml Balance 470 ml 205 ml 450 ml 400 ml Intake Oral 300 ml IV Total 55 ml Packed Cells 400 ml 400 ml 400 ml Blood Product IV Normal Saline Flush 70 ml 50 ml Output Urine Total 150 ml (Raul Pat MD R3) Result Diagram: 12/18/17 0232 12/18/17 0232 Objective Remarks GENERAL: Well-developed patient, in no apparent distress. SKIN: Cool and dry. Large ecchymoses extending from anterior lower abdomen to left flank, tender HEAD: Atraumatic. Normocephalic. EYES: Extraocular motions intact. No scleral icterus. No injection or drainage. ENT: Nose without bleeding, purulent drainage or septal hematoma. Throat without erythema, tonsillar hypertrophy or exudate. Uvula midline. Airway patent. NECK: Trachea midline. No JVD or lymphadenopathy. Supple, nontender, no meningeal signs. CARDIOVASCULAR: Regular rate and rhythm without murmurs, gallops, or rubs. RESPIRATORY: Clear to auscultation. Breath sounds equal bilaterally. No wheezes , rales, or rhonchi. GASTROINTESTINAL: obese abdomen, soft. No guarding. Exam limited due to body habitus. Large hematoma of left lower abdomen. MUSCULOSKELETAL: Extremities without clubbing, cyanosis. LE edema +2 to ankles BL. NEUROLOGICAL: Awake and alert. Motor and sensory grossly within normal limits. Normal speech. (Raul Pat MD R3) A/P Assessment and Plan Patient is a 77-year-old Male with PMHx of A. fib and aortic valve replacement (on warfarin), DM, HTN and failed Right knee replacement presents to the ED with complaints of increasing Left sided abdominal swelling and bruising that developed after he suffered a fall yesterday. Pt also had complaints of CP and SOB. He was found to have WBC of 117 and elevated troponin. Cardiology and Heme/ Onc consulted, appreciate recommendations. Discharge Planning Unclear time frame (Raul Pat MD R3) Assessment and Plan Attending note: Patient seen and examined on the morning of 12/18/17. Case reviewed and discussed with the resident team. Agree with plan of care as discussed with me and documented in the resident note. (Tray Mckinney MD) Problem List: (1) Anemia ICD Codes: D64.9 - Anemia, unspecified Status: Acute Plan: Pt with hx of fall on night prior to admission and development of Left sided hematoma accompanied with sxs CP and SOB, now resolved DDX: malignancy vs acute development of hematoma vs GI bleed vs others. -On admission H/H of 6./ -GI consulted, appreciate recommendations -Will hold off on EGD and colonoscopy pending further evaluation by hematology and cardiology -Heme/Onc consulted, see below -Patient status post transfusion of 4 units of packed red blood cells, transfusion completed 12/18 -Coumadin held, pt given 10mg IV vitamin K -Post transfusion H&H pending -Continue to monitor H&H -Continue to monitor for signs of bleeding -Transfuse if hemoglobin is less than 8 Imaging: CT 12/17: Hematoma with associated hemorrhage on Left side of abdomen. (2) Elevated troponin ICD Codes: R74.8 - Abnormal levels of other serum enzymes Plan: On admission troponin less than 0.02-->0.85--> 0.68. Patient denies active chest pain or shortness of breath. Patient with history of aortic valve replacement. No acute ST elevations or ischemic changes on EKG. -Cardiology consulted, appreciate recommendations -Elevated troponin likely due to demand mediated ischemia -2-D echo (3) Elevated white blood cell count ICD Codes: D72.829 - Elevated white blood cell count, unspecified Plan: Patient found to be afebrile with WBC- 117, Neutrophils-102. - Labs in March of 2017 with WBC count of 13. -Heme/onc consulted, recommendations appreciated -BCR-ABL pending -Chest CT 12/17 shows no acute intrathoracic process. Bony structures are intact. Peripheral smear shows markedly elevated white blood cell count. Red blood cells are predominantly normochromic and normocytic with mild aniso- and poikilocytosis. 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 A chronic myeloproliferative neoplasm should be excluded. (4) Diabetes ICD Codes: E11.9 - Type 2 diabetes mellitus without complications Plan: -hold home po meds -hypoglycemia protocol -low dose SSI (5) hx right knee infection Status: Acute Plan: c/w doxycycline daily regimen (6) Atrial fibrillation ICD Codes: I48.91 - Unspecified atrial fibrillation Plan: Pt is asymptomatic EKG: A fib with RVR -continue to monitor -Telemetry (7) Hypertension ICD Codes: I10 - Essential (primary) hypertension Plan: c/w HTN medications (8) Aortic valve replaced ICD Codes: Z95.2 - Presence of prosthetic heart valve Plan: -hold warfarin and asa due to concern for an acute bleed (9) Shortness of breath ICD Codes: R06.02 - Shortness of breath Plan: -SOB now resolved, can be due to anemia -f/u echo (10) KARYN (acute kidney injury) ICD Codes: N17.9 - Acute kidney failure, unspecified Plan: -IVF -Continue to monitor creatinine -Consider Renal US and Nephrology consult if creatinine does not trend down (11) Elevated d-dimer ICD Codes: R79.89 - Other specified abnormal findings of blood chemistry Plan: Vital signs are stable -Pt unable to tolerate VQ scan. CTA scan contraindicated due to elevated creatinine. -Chest CT with no acute process -Continue to monitor, additional imaging studies as indicated (12) Nutrition, metabolism, and development symptoms ICD Codes: R63.8 - Other symptoms and signs concerning food and fluid intake Plan: Fluids: NS 100mls/hr Electrolyte: continue to monitor, replete as needed Nutrition: Diabetic diet GI ppx: protonix 40mg IV DVT PPX: SCDs, Eliecer sharma (Raul Pat MD R3) Raul Pat MD R3 Dec 18, 2017 13:03 Tray Mckinney MD Dec 19, 2017 12:25
[2017-12-18] MEDS: SODIUM CHLOR 0.9% 1000 ML INJ 1,000 ML IV SCH (13:21)
--- NOTE | 2017-12-18 14:19 | EKG ---
Date Performed: 12/17/2017 Time Performed: 18:49:33 PTAGE: 77 years EKG: ATRIAL FIBRILLATION WITH ABERRANT CONDUCTION OR VENTRICULAR PREMATURE COMPLEXES MARKED RIGH T AXIS DEVIATION INTRAVENTRICULAR CONDUCTION DELAY DEMAND PACING ABNORMAL ECG Compared to PREVIOUS TRACING , ventricular response to atrial fibrillation is slower and demand pacin g is seen. PREVIOUS TRACIN12/17/2017 09.29 DOCTOR: Johnny Velez Interpretating Date/Time 12/18/2017 14:18:04
--- NOTE | 2017-12-18 14:19 | EKG ---
Date Performed: 12/17/2017 Time Performed: 23:45:48 PTAGE: 77 years EKG: Atrial fibrillation with demand pacing Leftward axis IV conduction defect Possible lateral infarct - age undetermined Possible anterior infarct - age undetermined Inferior ST-T changes are non specific Low QRS voltages in limb leads Abnormal ECG PREVIOUS TRACING : 12/17/2017 18.49 DOCTOR: Johnny Velez Interpretating Date/Time 12/18/2017 14:18:32
[2017-12-18 15:30] LABS: HEMATOCRIT 25.4 % (39.0-51.0); HEMOGLOBIN 8.7 GM/DL (13.0-17.0)
--- NOTE | 2017-12-18 15:34 | ECHRPT ---
Indication: hx AVR elevated trop CONCLUSIONS Mildly dilated left ventricle. The left ventricular systolic function is mildly reduced with an estimated ejection fraction in the range of 45- 50%. Mild global hypokinesis. Trace mitral valve regurgitation. AVR aortic valve area is 1.4 cm. Mild adamaris-valvular aortic regurgitation. Aortic valve mean gradient is 14 mmHg. . There is mild tricuspid valve regurgitation. The estimated pulmonary arterial pressure is 40.7 mmHg. BP: / HR: Rhythm: MEASUREMENTS (Male / Female) Normal Values Technical Quality:Technically difficult study 2D ECHO LV Diastolic Diameter PLAX 6.0 cm 4.2 - 5.9 / 3.9 - 5.3 cm LV Systolic Diameter PLAX 4.8 cm IVS Diastolic Thickness 1.1 cm 0.6 - 1.0 / 0.6 - 0.9 cm LVPW Diastolic Thickness 1.3 cm 0.6 - 1.0 / 0.6 - 0.9 cm LV Relative Wall Thickness 0.4 RV Internal Dim ED PLAX 3.1 cm LVOT Diameter 2.3 cm M-MODE Aortic Root Diameter MM 3.1 cm LA Systolic Diameter MM 5.2 cm LA Ao Ratio MM 1.7 DOPPLER AV Peak Velocity 248.0 cm/s AV Peak Gradient 24.6 mmHg AV Mean Gradient 14.0 mmHg AV Velocity Time Integral 48.6 cm LVOT Peak Velocity 81.2 cm/s LVOT Peak Gradient 2.6 mmHg LVOT Velocity Time Integral 15.9 cm AV Area Cont Eq vti 1.4 cm AV Area Cont Eq pk 1.4 cm LV E' Lateral Velocity 9.3 cm/s LV E' Septal Velocity 12.0 cm/s TR Peak Velocity 277.0 cm/s TR Peak Gradient 30.7 mmHg Right Atrial Pressure 10.0 mmHg Pulmonary Artery Systolic Pressu 40.7 mmHg Right Ventricular Systolic Press 40.7 mmHg FINDINGS LEFT VENTRICLE Mildly dilated left ventricle. The left ventricular systolic function is mildly reduced with an estimated ejection fraction in the range of 45- 50%. RIGHT VENTRICLE Normal right ventricular size and systolic function. LEFT ATRIUM The left atrial size is normal. RIGHT ATRIUM The right atrial size is normal. ATRIAL SEPTUM Normal atrial septal thickness without atrial level shunting by limited color doppler interrogation. AORTA The aortic root and proximal ascending aorta are normal in size on limited imaging. MITRAL VALVE Structurally normal mitral valve. Trace mitral valve regurgitation. AORTIC VALVE AVR aortic valve area is 1.4 cm. Aortic valve mean gradient is 14 mmHg. Mild adamaris-valvular aortic valve regurgitation. TRICUSPID VALVE Structurally normal tricuspid valve. There is mild tricuspid valve regurgitation. The estimated pulmonary arterial pressure is 40.7 mmHg. PULMONARY VALVE No pulmonary valve regurgitation or stenosis. VESSELS The inferior vena cava is normal in size. PERICARDIUM No pericardial effusion. Johnny Velez MD (Electronically Signed) Final Date:18 December 2017 15:33
[2017-12-18 17:41] LABS: INTERNATIONAL NORMALIZED RATIO 1.3 RATIO; PROTHROMBIN TIME - PATIENT 13.1 SEC (9.8-11.6)
[2017-12-18 23:19] LABS: HEMATOCRIT 23.8 % (39.0-51.0); HEMOGLOBIN 8.1 GM/DL (13.0-17.0); MEAN CELL VOLUME 88.9 FL (80.0-100.0); MEAN CORPUSCULAR HEMOGLOBIN 30.1 PG (27.0-34.0); MEAN CORPUSCULAR HGB CONC 33.9 % (32.0-36.0); MEAN PLATELET VOLUME 8.6 FL (7.0-11.0); PLATELET COUNT 187 TH/MM3 (150-450); RED BLOOD COUNT 2.68 MIL/MM3 (4.50-5.90); RED CELL DISTRIBUTION WIDTH 17.4 % (11.6-17.2); WHITE BLOOD COUNT 77.3 TH/MM3 (4.0-11.0)
[2017-12-18 23:55] LABS: BANDS 2 % (0-6); BASOPHILS 1 % (0-2); LYMPHOCYTES 3 % (9-44); METAMYELOCYTES 8 % (0-1); MONOCYTES 4 % (0-8); MYELOCYTES 7 % (0-0); NEUTROPHIL # MANUAL DIFF 71.1 TH/MM3 (1.8-7.7); POLYS (SEG NEUTROPHILS) 73 % (16-70); PROMYELOCYTES 2 % (0-0)
[2017-12-18 23:57] LABS: OVALOCYTES 1+ (NORMAL)
[2017-12-19] VITALS (8 sets, daily range): BP systolic 94–121; BP diastolic 54–68; PULSE 69–101; RESP 18; TEMP 97.8–98.7; O2SAT 95–98
[2017-12-19] MEDS: PANTOPRAZOLE SODIUM 40 MG VIAL IV PUSH SCH ×2 (01:45→13:30)
[2017-12-19 05:19] LABS: HEMATOCRIT 23.5 % (39.0-51.0); HEMOGLOBIN 7.9 GM/DL (13.0-17.0); MEAN CELL VOLUME 89.2 FL (80.0-100.0); MEAN CORPUSCULAR HEMOGLOBIN 29.9 PG (27.0-34.0); MEAN CORPUSCULAR HGB CONC 33.5 % (32.0-36.0); MEAN PLATELET VOLUME 8.6 FL (7.0-11.0); PLATELET COUNT 182 TH/MM3 (150-450); RED BLOOD COUNT 2.63 MIL/MM3 (4.50-5.90); RED CELL DISTRIBUTION WIDTH 17.9 % (11.6-17.2); WHITE BLOOD COUNT 75.2 TH/MM3 (4.0-11.0)
[2017-12-19 05:48] LABS: ALBUMIN 2.8 GM/DL (3.4-5.0); ALT (GPT) 33 U/L (12-78); AST (GOT) 35 U/L (15-37); BICARBONATE 25.6 MEQ/L (21.0-32.0); BLOOD UREA NITROGEN 35 MG/DL (7-18); CHLORIDE 103 MEQ/L (98-107); CREATININE 1.54 MG/DL (0.60-1.30); GLOMERULAR FILTRATION RATE 44 ML/MIN (>89); GLUCOSE,RANDOM 88 MG/DL (74-106); LDH SERUM 471 U/L (87-241); SODIUM (NA) 137 MEQ/L (136-145)
[2017-12-19 05:50] LABS: ALKALINE PHOSPHATASE 96 U/L (45-117); TOTAL BILIRUBIN ADULT 0.8 MG/DL (0.2-1.0); TOTAL PROTEIN 5.9 GM/DL (6.4-8.2)
[2017-12-19] MEDS: PRAVASTATIN SOD 40 MG TAB PO SCH (08:28)
[2017-12-19] MEDS: DOXYCYCLINE HYCLATE 50 MG CAP PO SCH ×2 (08:29→21:00)
[2017-12-19] MEDS: INSULIN ASPART SUPPLEMENTAL SCALE SQ SCH ×4 (08:29→22:56)
[2017-12-19] MEDS: METOPROLOL TARTRATE 25 MG TAB PO SCH ×2 (08:29→22:51)
[2017-12-19 08:33] LABS: BANDS 15 % (0-6); LYMPHOCYTES 2 % (9-44); METAMYELOCYTES 5 % (0-1); MONOCYTES 6 % (0-8); MYELOCYTES 4 % (0-0); NEUTROPHIL # MANUAL DIFF 69.2 TH/MM3 (1.8-7.7); POLYS (SEG NEUTROPHILS) 67 % (16-70); PROMYELOCYTES 1 % (0-0)
[2017-12-19] MEDS: ACETAMINOPHEN/HYDROcodone 325 MG/7.5 MG TAB PO PRN ×3 (08:38→22:50)
[2017-12-19] MEDS: LACTULOSE SYRUP 20 GM/30 ML CUP PO PRN (08:38)
--- NOTE | 2017-12-19 09:24 | PD.ONC.PN ---
Subjective Subjective Remarks Afebrile overnight. "I feel stronger today." Denies shortness of breath. No confusion. Relieved that he will not be getting Lumbar puncture. He was confused about the difference between LP and BMB as his son had a form of leukemia that required several LPs. Objective Data Date Time Temp Pulse Resp B/P (MAP) Pulse Ox O2 Delivery O2 Flow Rate FiO2 12/19/17 08:28 98.4 101 18 102/58 (73) 95 12/19/17 03:00 97.8 74 116/60 (78) 97 12/19/17 03:00 69 12/18/17 23:00 97.5 72 109/60 (76) 97 12/18/17 23:00 80 12/18/17 19:00 70 12/18/17 19:00 98.2 72 128/72 (90) 98 12/18/17 16:58 98 21 12/18/17 15:49 97.5 72 18 120/66 (84) 98 12/18/17 15:03 121 12/18/17 13:13 98.2 69 18 105/56 95 12/18/17 10:48 98.5 71 18 90/47 98 12/18/17 10:14 98.0 77 18 92/53 96 12/19/17 12/19/17 12/19/17 06:59 14:59 22:59 Intake Total 240 ml Output Total 400 ml Balance -160 ml Result Diagram: 12/19/17 0353 12/19/17 0353 Laboratory Results Laboratory Tests Test 12/18/17 15:24 12/18/17 16:30 12/18/17 23:08 12/19/17 03:53 Hemoglobin 8.7 GM/DL 8.1 GM/DL 7.9 GM/DL Hematocrit 25.4 % 23.8 % 23.5 % Prothrombin Time 13.1 SEC Prothromb Time International Ratio 1.3 RATIO Activated Partial Thromboplast Time 28.4 SEC White Blood Count 77.3 TH/MM3 75.2 TH/MM3 Red Blood Count 2.68 MIL/MM3 2.63 MIL/MM3 Mean Corpuscular Volume 88.9 FL 89.2 FL Mean Corpuscular Hemoglobin 30.1 PG 29.9 PG Mean Corpuscular Hemoglobin Concent 33.9 % 33.5 % Red Cell Distribution Width 17.4 % 17.9 % Platelet Count 187 TH/MM3 182 TH/MM3 Mean Platelet Volume 8.6 FL 8.6 FL CBC Comment AUTO DIFF AUTO DIFF Differential Total Cells Counted 100 100 Neutrophils % (Manual) 73 % 67 % Band Neutrophils % 2 % 15 % Lymphocytes % 3 % 2 % Monocytes % 4 % 6 % Basophils % 1 % Neutrophils # (Manual) 71.1 TH/MM3 69.2 TH/MM3 Metamyelocytes 8 % 5 % Myelocytes 7 % 4 % Promyelocytes 2 % 1 % Differential Comment FINAL DIFF MANUAL FINAL DIFF MANUAL Platelet Estimate NORMAL NORMAL Platelet Morphology Comment NORMAL NORMAL Ovalocytes 1+ Blood Urea Nitrogen 35 MG/DL Creatinine 1.54 MG/DL Random Glucose 88 MG/DL Total Protein 5.9 GM/DL Albumin 2.8 GM/DL Calcium Level 8.0 MG/DL Alkaline Phosphatase 96 U/L Aspartate Amino Transf (AST/SGOT) 35 U/L Alanine Aminotransferase (ALT/SGPT) 33 U/L Lactate Dehydrogenase 471 U/L Total Bilirubin 0.8 MG/DL Sodium Level 137 MEQ/L Potassium Level 3.9 MEQ/L Chloride Level 103 MEQ/L Carbon Dioxide Level 25.6 MEQ/L Anion Gap 8 MEQ/L Estimat Glomerular Filtration Rate 44 ML/MIN Culture Results Microbiology Date/Time Source Procedure Growth Status 12/17/17 22:25 Blood Peripheral Aerobic Blood Culture - Preliminary NO GROWTH IN 1 DAY Resulted 12/17/17 22:25 Blood Peripheral Anaerobic Blood Culture - Preliminary NO GROWTH IN 1 DAY Resulted 12/17/17 22:20 Blood Peripheral Aerobic Blood Culture - Preliminary NO GROWTH IN 1 DAY Resulted 12/17/17 22:20 Blood Peripheral Anaerobic Blood Culture - Preliminary NO GROWTH IN 1 DAY Resulted 12/17/17 19:00 Urine Clean Catch Urine Culture - Preliminary NO GROWTH IN 24 HOURS. Resulted Administered Medications Medications (Trade) Dose Ordered Sig/Jewels Route PRN Reason Start Time Stop Time Status Last Admin Dose Admin Doxycycline Hyclate (Vibramycin) 50 mg BID PO 12/17/17 14:00 12/19/17 08:29 Losartan Potassium (Cozaar) 50 mg DAILY PO 12/17/17 14:00 Future Hold 12/17/17 16:04 Pravastatin Sodium (Pravachol) 40 mg DAILY PO 12/17/17 14:00 12/19/17 08:28 Metoprolol Tartrate (Lopressor) 25 mg BID PO 12/17/17 14:00 12/19/17 08:29 Lactulose (Lactulose Liq) 30 ml DAILY PRN PO SEVERE CONSITIPATION 12/17/17 13:30 12/19/17 08:38 Sodium Chloride 1,000 ml @ 100 mls/hr Q10H IV 12/17/17 13:45 Future Hold 12/18/17 13:21 Insulin Aspart (NovoLOG SUPPLEMENTAL SCALE) 1 ACHS SLIDING SCALE SQ 12/17/17 17:00 12/17/17 16:16 Pantoprazole Sodium (Protonix Inj) 40 mg Q12H IV PUSH 12/17/17 13:45 12/19/17 01:45 Acetaminophen/ Hydrocodone Bitart ([place] 7.5-325 Mg) 1 tab Q4H PRN PO PAIN SCALE 6 TO 10 12/17/17 14:45 12/19/17 08:38 Objective Remarks GENERAL: Pleasant, elderly male, sitting up in chair in nad. watching TV. SKIN: Warm and dry. HEAD: Normocephalic. EYES: No injection or drainage. NECK: Supple, trachea midline. CARDIOVASCULAR: IRR RESPIRATORY: diminished at bases, anterior ramos clear. GASTROINTESTINAL: Abdomen soft, non-tender, nondistended. EXTREMITIES: No cyanosis. chronic skin thickening noted in bilateral LE NEUROLOGICAL: awake and alert, normal speech. moving extremities Assessment/Plan Assessment 77y/o male admitted with abdominal wall hematoma after fall. Hematology consulted for leukocytosis. H.o chronic anticoagulation with warfarin. history of atrial fibrillation, aortic valve replacement status post TAVR procedure. 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 Plan 1. leukocytosis: bone marrow biopsy ordered for Wednesday. I reviewed in detail the procedure with the patient. await BCR/ABL. make NPO after midnight tonight. 2. Large Abdominal wall hematoma: monitor hgb closely. transfuse as needed. 3. monitor coags. hold coumadin d/t bleeding. Attending Statement The exam, history, and the medical decision-making described in the above note were completed with the assistance of the mid-level provider. I reviewed and agree with the findings presented. I attest that I had a [id number] encounter with the patient on the same day, and personally performed and documented my assessment and findings in the medical record. 77 yoM admitted with left sided hematoma after a fall at home. INR reversed with warfarin. S/p transfusion of 2 units of PRBC. 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 Aby Martins Dec 19, 2017 09:24 Sandhya Montilla MD Dec 19, 2017 13:03
--- NOTE | 2017-12-19 09:39 | HHI.FPPN ---
Subjective Remarks Patient seen and examined bedside this morning. Patient has not had any bowel movements since his admission to the hospital. The soreness over the left side of his abdomen where the hematoma is has decreased. He feels that he is more mobile than yesterday. He denies any chest pain/shortness of breath/dizziness. He continues to deny EGD/colonoscopy due to fear of the procedure and thoughts that the bleeding must be due to his hematoma. (Sneha Henderson MD R2) Objective Vitals Vital Signs Date Time Temp Pulse Resp B/P (MAP) Pulse Ox O2 Delivery O2 Flow Rate FiO2 12/19/17 08:28 98.4 101 18 102/58 (73) 95 12/19/17 03:00 97.8 74 116/60 (78) 97 12/19/17 03:00 69 12/18/17 23:00 97.5 72 109/60 (76) 97 12/18/17 23:00 80 12/18/17 19:00 70 12/18/17 19:00 98.2 72 128/72 (90) 98 12/18/17 16:58 98 21 12/18/17 15:49 97.5 72 18 120/66 (84) 98 12/18/17 15:03 121 12/18/17 13:13 98.2 69 18 105/56 95 12/18/17 10:48 98.5 71 18 90/47 98 12/18/17 10:14 98.0 77 18 92/53 96 I/O 12/18/17 12/18/17 12/18/17 12/19/17 12/19/17 12/19/17 07:00 15:00 23:00 07:00 15:00 23:00 Intake Total 450 ml 1830 ml 240 ml Output Total 400 ml Balance 450 ml 1830 ml -160 ml Intake Oral 240 ml IV Total 1030 ml Packed Cells 400 ml 800 ml Blood Product IV Normal Saline Flush 50 ml Output Urine Total 400 ml (Sneha Henderson MD R2) Result Diagram: 12/19/1735212/19/17352 Objective Remarks GENERAL: Well-developed patient, in no apparent distress. SKIN: Cool and dry. Large ecchymoses extending from anterior lower abdomen to left flank, tender HEAD: Atraumatic. Normocephalic. EYES: Extraocular motions intact. No scleral icterus. No injection or drainage. ENT: Nose without bleeding, purulent drainage or septal hematoma. Throat without erythema, tonsillar hypertrophy or exudate. Uvula midline. Airway patent. NECK: Trachea midline. No JVD or lymphadenopathy. Supple, nontender, no meningeal signs. CARDIOVASCULAR: Irregularly irregular rate and rhythm without murmurs, gallops, or rubs. RESPIRATORY: Clear to auscultation with crackles on left side. Breath sounds equal bilaterally. No wheezes, rales, or rhonchi. GASTROINTESTINAL: obese abdomen, soft. No guarding. Exam limited due to body habitus. Large hematoma of left lower abdomen, bruising has increased from yesterday. Pain over posterior region of hematoma. Positive bowel sounds MUSCULOSKELETAL: Extremities without clubbing, cyanosis. LE edema +2 to ankles BL. NEUROLOGICAL: Awake and alert. Motor and sensory grossly within normal limits. Normal speech. (Sneha Henderson MD R2) A/P Assessment and Plan Patient is a 77-year-old Male with PMHx of A. fib and aortic valve replacement (on warfarin), DM, HTN and failed Right knee replacement presents to the ED with complaints of increasing Left sided abdominal swelling and bruising that developed after he suffered a fall yesterday. Pt also had complaints of CP and SOB. He was found to have WBC of 117 and elevated troponin. Cardiology and Heme/ Onc consulted, appreciate recommendations. Discharge Planning Unclear time frame (Sneha Henderson MD R2) Assessment and Plan Attending note: Patient seen and examined.. Case reviewed and discussed with the resident team. Agree with plan of care as discussed with me and documented in the resident note. Anticipate bone marrow exam on 12/20/17. Patient appears to have stabilized with regards to bleeding into the hematoma. Of note is the decrease in the white blood cell count. All patient's questions answered. (Tray Mckinney MD) Problem List: (1) Anemia ICD Codes: D64.9 - Anemia, unspecified Status: Acute Plan: Pt with hx of fall on night prior to admission and development of Left sided hematoma accompanied with sxs CP and SOB, now resolved DDX: malignancy vs acute development of hematoma vs GI bleed vs others. -On admission H/H of 6.03/19 -GI consulted, appreciate recommendations -Will hold off on EGD and colonoscopy pending further evaluation by hematology and cardiology -Heme/Onc consulted, see below -Patient status post transfusion of 4 units of packed red blood cells, transfusion completed 12/18 -Coumadin held, pt given 10mg IV vitamin K -Post transfusion H&H 8.7 -Continue to monitor H&H: H&H slowly dropping from 8.7-8.1-7.9 -Continue to monitor for signs of bleeding -Follow up H&H at 10 AM, and Transfuse if hemoglobin is less than 8 Imaging: CT 12/17: Hematoma with associated hemorrhage on Left side of abdomen. (2) Elevated troponin ICD Codes: R74.8 - Abnormal levels of other serum enzymes Plan: On admission troponin less than 0.02-->0.85--> 0.68. Patient denies active chest pain or shortness of breath. Patient with history of aortic valve replacement. No acute ST elevations or ischemic changes on EKG. -Cardiology consulted, appreciate recommendations -Elevated troponin likely due to demand mediated ischemia -2-D echo: Ejection fraction 45-50%, mildly reduced (3) Elevated white blood cell count ICD Codes: D72.829 - Elevated white blood cell count, unspecified Plan: Patient found to be afebrile with WBC- 117, Neutrophils-102. - Labs in March of 2017 with WBC count of 13. Trending down from 117-75 today -Heme/onc consulted, recommendations appreciated -Plan for nothing by mouth tonight and bone marrow biopsy tomorrow, possible CML -BCR-ABL pending -Chest CT 12/17 shows no acute intrathoracic process. Bony structures are intact. Peripheral smear shows markedly elevated white blood cell count. Red blood cells are predominantly normochromic and normocytic with mild aniso- and poikilocytosis. 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 A chronic myeloproliferative neoplasm should be excluded. (4) Diabetes ICD Codes: E11.9 - Type 2 diabetes mellitus without complications Plan: -hold home po meds -hypoglycemia protocol -low dose SSI (5) hx right knee infection Status: Acute Plan: c/w doxycycline daily regimen (6) Atrial fibrillation ICD Codes: I48.91 - Unspecified atrial fibrillation Plan: Pt is asymptomatic EKG: A fib with RVR -continue to monitor -Telemetry (7) Hypertension ICD Codes: I10 - Essential (primary) hypertension Plan: c/w HTN medications (8) Aortic valve replaced ICD Codes: Z95.2 - Presence of prosthetic heart valve Plan: -hold warfarin and asa due to concern for an acute bleed (9) Shortness of breath ICD Codes: R06.02 - Shortness of breath Plan: -SOB now resolved, can be due to anemia -May have been panic attack versus cardiovascular ischemia versus CHF exacerbation -Elevated troponins - BNP 404 (10) KARYN (acute kidney injury) ICD Codes: N17.9 - Acute kidney failure, unspecified Plan: Resolving; 2.3 on admission and 1.5 for today History of creatinine of 0.93 in 2016 -IVF -Continue to monitor creatinine -Consider Renal US and Nephrology consult if creatinine does not trend down (11) Elevated d-dimer ICD Codes: R79.89 - Other specified abnormal findings of blood chemistry Plan: Vital signs are stable -Pt unable to tolerate VQ scan. CTA scan contraindicated due to elevated creatinine. -Chest CT with no acute process -Continue to monitor, additional imaging studies as indicated (12) Nutrition, metabolism, and development symptoms ICD Codes: R63.8 - Other symptoms and signs concerning food and fluid intake Plan: Fluids: NS 100mls/hr Electrolyte: continue to monitor, replete as needed Nutrition: Diabetic diet GI ppx: protonix 40mg IV DVT PPX: SCDs, Eliecer sharma (Sneha Henderson MD R2) Sneha Henderson MD R2 Dec 19, 2017 09:39 Tray Mckinney MD Dec 19, 2017 12:28
--- NOTE | 2017-12-19 10:43 | PD.CARD.PN ---
Subjective Subjective Remarks Pt breathing better, a little bit more "peppy" Objective Medications Administered Medications Medications (Trade) Dose Ordered Sig/Jewels Route PRN Reason Start Time Stop Time Status Last Admin Dose Admin Doxycycline Hyclate (Vibramycin) 50 mg BID PO 12/17/17 14:00 12/19/17 08:29 Losartan Potassium (Cozaar) 50 mg DAILY PO 12/17/17 14:00 Future Hold 12/17/17 16:04 Pravastatin Sodium (Pravachol) 40 mg DAILY PO 12/17/17 14:00 12/19/17 08:28 Metoprolol Tartrate (Lopressor) 25 mg BID PO 12/17/17 14:00 12/19/17 08:29 Lactulose (Lactulose Liq) 30 ml DAILY PRN PO SEVERE CONSITIPATION 12/17/17 13:30 12/19/17 08:38 Sodium Chloride 1,000 ml @ 100 mls/hr Q10H IV 12/17/17 13:45 Future Hold 12/18/17 13:21 Insulin Aspart (NovoLOG SUPPLEMENTAL SCALE) 1 ACHS SLIDING SCALE SQ 12/17/17 17:00 12/17/17 16:16 Pantoprazole Sodium (Protonix Inj) 40 mg Q12H IV PUSH 12/17/17 13:45 12/19/17 01:45 Acetaminophen/ Hydrocodone Bitart ([place] 7.5-325 Mg) 1 tab Q4H PRN PO PAIN SCALE 6 TO 10 12/17/17 14:45 12/19/17 08:38 Current Medications Medications (Trade) Dose Ordered Sig/Jewels Route Start Time Stop Time Status Last Admin (NS Flush) 2 ml UNSCH PRN IV FLUSH 12/17/17 09:45 (Vibramycin) 50 mg BID PO 12/17/17 14:00 12/19/17 08:29 (Cozaar) 50 mg DAILY PO 12/17/17 14:00 Future Hold 12/17/17 16:04 (Pravachol) 40 mg DAILY PO 12/17/17 14:00 12/19/17 08:28 (Lopressor) 25 mg BID PO 12/17/17 14:00 12/19/17 08:29 (Zofran Inj) 4 mg Q6H PRN IVP 12/17/17 13:30 (Restoril) 15 mg HS PRN PO 12/17/17 13:30 (Narcan Inj) 0.4 mg UNSCH PRN IV PUSH 12/17/17 13:30 (Milk Of Magnesia Liq) 30 ml Q12H PRN PO 12/17/17 13:30 (Senokot) 17.2 mg Q12H PRN PO 12/17/17 13:30 (Dulcolax Supp) 10 mg DAILY PRN RECTAL 12/17/17 13:30 (Lactulose Liq) 30 ml DAILY PRN PO 12/17/17 13:30 12/19/17 08:38 Sodium Chloride 1,000 ml @ 100 mls/hr Q10H IV 12/17/17 13:45 Future Hold 12/18/17 13:21 (Apresoline Inj) 10 mg Q6H PRN IV PUSH 12/17/17 13:45 (D50w (Vial) Inj) 50 ml UNSCH PRN IV PUSH 12/17/17 13:45 (Glucagon Inj) 1 mg UNSCH PRN OTHER 12/17/17 13:45 (NovoLOG SUPPLEMENTAL SCALE) 1 ACHS SLIDING SCALE SQ 12/17/17 17:00 12/17/17 16:16 (Protonix Inj) 40 mg Q12H IV PUSH 12/17/17 13:45 12/19/17 01:45 (Tylenol) 650 mg Q6H PRN PO 12/17/17 14:45 ([place] 5-325 Mg) 1 tab Q4H PRN PO 12/17/17 14:45 ([place] 7.5-325 Mg) 1 tab Q4H PRN PO 12/17/17 14:45 12/19/17 08:38 (Morphine Inj) 4 mg Q3H PRN IV PUSH 12/17/17 14:45 (Narcan Inj) 0.4 mg UNSCH PRN IV PUSH 12/17/17 14:45 Vital Signs / I&O Vital Signs Date Time Temp Pulse Resp B/P (MAP) Pulse Ox O2 Delivery O2 Flow Rate FiO2 12/19/17 08:28 98.4 101 18 102/58 (73) 95 12/19/17 07:00 78 12/19/17 03:00 97.8 74 116/60 (78) 97 12/19/17 03:00 69 1/20/18 23:00 97.5 72 109/60 (76) 97 12/18/17 23:00 80 12/18/17 19:00 70 12/18/17 19:00 98.2 72 128/72 (90) 98 12/18/17 16:58 98 21 12/18/17 15:49 97.5 72 18 120/66 (84) 98 12/18/17 15:03 121 12/18/17 13:13 98.2 69 18 105/56 95 12/18/17 10:48 98.5 71 18 90/47 98 I/O 12/18/17 12/18/17 12/18/17 12/19/17 12/19/17 12/19/17 07:00 15:00 23:00 07:00 15:00 23:00 Intake Total 450 ml 1830 ml 240 ml Output Total 400 ml Balance 450 ml 1830 ml -160 ml Intake Oral 240 ml IV Total 1030 ml Packed Cells 400 ml 800 ml Blood Product IV Normal Saline Flush 50 ml Output Urine Total 400 ml Physical Exam GENERAL: This is a well-nourished, well-developed patient, in no apparent distress. CARDIOVASCULAR: Regular rate and rhythm without murmurs, gallops, or rubs. RESPIRATORY: Clear to auscultation. Breath sounds equal bilaterally. No wheezes , rales, or rhonchi. GASTROINTESTINAL: Abdomen soft, non-tender, nondistended. Normal active bowel sounds MUSCULOSKELETAL: 1-2+ chronic LE edema NEURO: Alert & Oriented x4 to person, place, time, situation. Moves all ext x4 Laboratory Laboratory Tests Test 12/18/17 15:24 12/18/17 16:30 12/18/17 23:08 12/19/17 03:53 Hemoglobin 8.7 GM/DL 8.1 GM/DL 7.9 GM/DL Hematocrit 25.4 % 23.8 % 23.5 % Prothrombin Time 13.1 SEC Prothromb Time International Ratio 1.3 RATIO Activated Partial Thromboplast Time 28.4 SEC White Blood Count 77.3 TH/MM3 75.2 TH/MM3 Red Blood Count 2.68 MIL/MM3 2.63 MIL/MM3 Mean Corpuscular Volume 88.9 FL 89.2 FL Mean Corpuscular Hemoglobin 30.1 PG 29.9 PG Mean Corpuscular Hemoglobin Concent 33.9 % 33.5 % Red Cell Distribution Width 17.4 % 17.9 % Platelet Count 187 TH/MM3 182 TH/MM3 Mean Platelet Volume 8.6 FL 8.6 FL CBC Comment AUTO DIFF AUTO DIFF Differential Total Cells Counted 100 100 Neutrophils % (Manual) 73 % 67 % Band Neutrophils % 2 % 15 % Lymphocytes % 3 % 2 % Monocytes % 4 % 6 % Basophils % 1 % Neutrophils # (Manual) 71.1 TH/MM3 69.2 TH/MM3 Metamyelocytes 8 % 5 % Myelocytes 7 % 4 % Promyelocytes 2 % 1 % Differential Comment FINAL DIFF MANUAL FINAL DIFF MANUAL Platelet Estimate NORMAL NORMAL Platelet Morphology Comment NORMAL NORMAL Ovalocytes 1+ Blood Urea Nitrogen 35 MG/DL Creatinine 1.54 MG/DL Random Glucose 88 MG/DL Total Protein 5.9 GM/DL Albumin 2.8 GM/DL Calcium Level 8.0 MG/DL Alkaline Phosphatase 96 U/L Aspartate Amino Transf (AST/SGOT) 35 U/L Alanine Aminotransferase (ALT/SGPT) 33 U/L Lactate Dehydrogenase 471 U/L Total Bilirubin 0.8 MG/DL Sodium Level 137 MEQ/L Potassium Level 3.9 MEQ/L Chloride Level 103 MEQ/L Carbon Dioxide Level 25.6 MEQ/L Anion Gap 8 MEQ/L Estimat Glomerular Filtration Rate 44 ML/MIN Imaging Last Impressions Abdomen/Pelvis CT 12/17/17 1035 Signed Impressions: Service Date/Time: Sunday, December 17, 2017 11:17 - CONCLUSION: Intra-abdominal pelvic contents reveal no acute abnormality with intact bony structures. Large area left lateral abdomen extending into the anterior abdomen and pelvis subcutaneous tissues of soft tissue density most likely representing hematoma with associated hemorrhage or inflammatory change in the soft tissues around this. Jeferson Mcintyre MD Head CT 12/17/17 0000 Signed Impressions: Service Date/Time: Sunday, December 17, 2017 11:09 - CONCLUSION: Normal examination for a patient of this age. Jeferson Mcintyre MD Chest CT 12/17/17 0000 Signed Impressions: Service Date/Time: Sunday, December 17, 2017 11:17 - CONCLUSION: No acute intra-thoracic process. Bony structures are intact. Compensated atherosclerotic cardiovascular disease with cardiomegaly and pacemaker in place as well as stent across the aortic valve. Coronary calcifications noted. Jeferson Mcintyre MD Cervical Spine CT 12/17/17 0000 Signed Impressions: Service Date/Time: Sunday, December 17, 2017 11:09 - CONCLUSION: Extensive degenerative findings as described above. No acute bony injury. Jeferson Mcintyre MD Assessment and Plan Problem List: (1) Elevated troponin ICD Codes: R74.8 - Abnormal levels of other serum enzymes Plan: Nonspecific, likely due to his anemia, no chest pain; given the anemia a candidate for medical therapy only at this point (2) Atrial fibrillation ICD Codes: I48.91 - Unspecified atrial fibrillation Plan: Generally rate controlled, warfarin held due to anemia. Assessment and Plan Dr. Posey will return in the AM to resume care. Johnny Velez MD Dec 19, 2017 10:43
[2017-12-19] MEDS ORDERED: BISACODYL 10 MG SUPP RECTAL ONE (12:00)
[2017-12-19 13:00] LABS: HEMATOCRIT 25.5 % (39.0-51.0); HEMOGLOBIN 8.5 GM/DL (13.0-17.0); MEAN CORPUSCULAR HEMOGLOBIN 30.1 PG (27.0-34.0); MEAN CORPUSCULAR HGB CONC 33.4 % (32.0-36.0); MEAN PLATELET VOLUME 8.6 FL (7.0-11.0); PLATELET COUNT 202 TH/MM3 (150-450); RED BLOOD COUNT 2.84 MIL/MM3 (4.50-5.90); RED CELL DISTRIBUTION WIDTH 17.7 % (11.6-17.2); WHITE BLOOD COUNT 86.6 TH/MM3 (4.0-11.0)
[2017-12-19 13:02] LABS: INTERNATIONAL NORMALIZED RATIO 1.2 RATIO; PROTHROMBIN TIME - PATIENT 11.7 SEC (9.8-11.6)
--- NOTE | 2017-12-19 13:27 | HHI.GIFU ---
Subjective Remarks Patient is siting up in chair, brushing his teeth, he feel okay over all, no Gi bleed reported. He still would like to hold off on EGD/colonoscopy unless necessary (Daniella Tirado) Objective Vitals I&O Vital Signs Date Time Temp Pulse Resp B/P (MAP) Pulse Ox O2 Delivery O2 Flow Rate FiO2 12/19/17 11:40 98.0 89 18 94/54 (67) 98 12/19/17 08:28 98.4 101 18 102/58 (73) 95 12/19/17 07:00 78 12/19/17 03:00 97.8 74 116/60 (78) 97 12/19/17 03:00 69 12/18/17 23:00 97.5 72 109/60 (76) 97 12/18/17 23:00 80 12/18/17 19:00 70 12/18/17 19:00 98.2 72 128/72 (90) 98 12/18/17 16:58 98 21 12/18/17 15:49 97.5 72 18 120/66 (84) 98 12/18/17 15:03 121 I/O 12/18/17 12/18/17 12/18/17 12/19/17 12/19/17 12/19/17 07:00 15:00 23:00 07:00 15:00 23:00 Intake Total 450 ml 1830 ml 240 ml Output Total 400 ml Balance 450 ml 1830 ml -160 ml Intake Oral 240 ml IV Total 1030 ml Packed Cells 400 ml 800 ml Blood Product IV Normal Saline Flush 50 ml Output Urine Total 400 ml Laboratory Laboratory Tests Test 12/18/17 15:24 12/18/17 16:30 12/18/17 23:08 12/19/17 03:53 Hemoglobin 8.7 8.1 7.9 Hematocrit 25.4 23.8 23.5 Prothrombin Time 13.1 Prothromb Time International Ratio 1.3 Activated Partial Thromboplast Time 28.4 White Blood Count 77.3 75.2 Red Blood Count 2.68 2.63 Mean Corpuscular Volume 88.9 89.2 Mean Corpuscular Hemoglobin 30.1 29.9 Mean Corpuscular Hemoglobin Concent 33.9 33.5 Red Cell Distribution Width 17.4 17.9 Platelet Count 187 182 Mean Platelet Volume 8.6 8.6 CBC Comment AUTO DIFF AUTO DIFF Differential Total Cells Counted 100 100 Neutrophils % (Manual) 73 67 Band Neutrophils % 2 15 Lymphocytes % 3 2 Monocytes % 4 6 Basophils % 1 Neutrophils # (Manual) 71.1 69.2 Metamyelocytes 8 5 Myelocytes 7 4 Promyelocytes 2 1 Differential Comment FINAL DIFF MANUAL FINAL DIFF MANUAL Platelet Estimate NORMAL NORMAL Platelet Morphology Comment NORMAL NORMAL Ovalocytes 1+ Blood Urea Nitrogen 35 Creatinine 1.54 Random Glucose 88 Total Protein 5.9 Albumin 2.8 Calcium Level 8.0 Alkaline Phosphatase 96 Aspartate Amino Transf (AST/SGOT) 35 Alanine Aminotransferase (ALT/SGPT) 33 Lactate Dehydrogenase 471 Total Bilirubin 0.8 Sodium Level 137 Potassium Level 3.9 Chloride Level 103 Carbon Dioxide Level 25.6 Anion Gap 8 Estimat Glomerular Filtration Rate 44 Test 12/19/17 12:36 White Blood Count 86.6 Red Blood Count 2.84 Hemoglobin 8.5 Hematocrit 25.5 Mean Corpuscular Volume 90.0 Mean Corpuscular Hemoglobin 30.1 Mean Corpuscular Hemoglobin Concent 33.4 Red Cell Distribution Width 17.7 Platelet Count 202 Mean Platelet Volume 8.6 CBC Comment AUTO DIFF Prothrombin Time 11.7 Prothromb Time International Ratio 1.2 Date/Time Source Procedure Growth Status 12/17/17 22:25 Blood Peripheral Aerobic Blood Culture - Preliminary NO GROWTH IN 2 DAYS Resulted 12/17/17 22:25 Blood Peripheral Anaerobic Blood Culture - Preliminary NO GROWTH IN 2 DAYS Resulted 12/17/17 19:00 Urine Clean Catch Urine Culture - Preliminary NO GROWTH IN 24 HOURS. Resulted Imaging Last Impressions Abdomen/Pelvis CT 12/17/17 1035 Signed Impressions: Service Date/Time: Sunday, December 17, 2017 11:17 - CONCLUSION: Intra-abdominal pelvic contents reveal no acute abnormality with intact bony structures. Large area left lateral abdomen extending into the anterior abdomen and pelvis subcutaneous tissues of soft tissue density most likely representing hematoma with associated hemorrhage or inflammatory change in the soft tissues around this. Jeferson Mcintyre MD Head CT 12/17/17 0000 Signed Impressions: Service Date/Time: Sunday, December 17, 2017 11:09 - CONCLUSION: Normal examination for a patient of this age. Jeferson Mcintyre MD Chest CT 12/17/17 0000 Signed Impressions: Service Date/Time: Sunday, December 17, 2017 11:17 - CONCLUSION: No acute intra-thoracic process. Bony structures are intact. Compensated atherosclerotic cardiovascular disease with cardiomegaly and pacemaker in place as well as stent across the aortic valve. Coronary calcifications noted. Jeferson Mcintyre MD Cervical Spine CT 12/17/17 0000 Signed Impressions: Service Date/Time: Sunday, December 17, 2017 11:09 - CONCLUSION: Extensive degenerative findings as described above. No acute bony injury. Jeferson Mcintyre MD Physical Exam HEENT:normocephalic; atraumatic; no jaundice. CHEST: Chest is clear to auscultation and percussion. CARDIAC: Regular rate and rhythm with no murmur gallop or rubs. ABDOMEN: Soft, nondistended, nontender; tender in area of large hematoma, obese , ; bowel sounds are present in all four quadrants. EXTREMITIES: +2 around ankles SKIN: large area of ecchymoses noted on Left side of abdomen [employer]: No focal deficits; alert and oriented times three. (Daniella Tirado) Assessment and Plan Plan - Severe acute anemia- hgb on admission 6.2. Today is 8.5 s/p 4 units of blood. likely multifactorial, possible secondary to ? GI source, hematoma or leukemia Pt with large hematoma on the left side of abd resulted by a fall prior to admission Patient denies nausea, vomiting, hematemesis, hematochezia or melena. CT of abd/pel showed hematoma with associated hemorrhage or inflammatory change in the soft tissues around this. - Leukocytosis- Hematology on the case, work up to r/o leukemia in process, plans for bone marrow bx on Wednesday. - High troponin/CP- Cardiology on the case, recommended medical therapy only at this point, ejection fraction in the range of 45- 50%. on echo - Hx of ileum ulcer 6 yrs ago- he had evaluation with EGD/colonoscopy, CE and that revealed ulcer in the ileum which eventually healed and hasn't had issues with anemia since. - PMHx of A. fib and aortic valve replacement 6 months ago (on warfarin), DM, HTN Plan: - FLORENT[place] - EGD/colonoscopy recommended , pt not very keen at this point states he is certain the source is the hematoma, but will reassess next week pending cardiology and hematology work up and clinical progress - Monitor hh - Transfuse as needed - cont. Protonix - Patient seen and examined by Dr. King and myself and this note is written on his behalf. (Daniella Tirado) Physician Comments Patient seen and examined Agree with above Continue with current supportive care Monitor labs Patient declining endoscopy at this point And he is in fact stable without any obvious GI bleed Not much to add from a GI perspective we will sign off (Shun King MD) Daniella Tirado Dec 19, 2017 13:27 Shun King MD Dec 19, 2017 21:20
[2017-12-19 13:46] LABS: BANDS 8 % (0-6); BASOPHILS 1 % (0-2); METAMYELOCYTES 2 % (0-1); MONOCYTES 12 % (0-8); MYELOCYTES 6 % (0-0); NEUTROPHIL # MANUAL DIFF 75.3 TH/MM3 (1.8-7.7); POLYS (SEG NEUTROPHILS) 67 % (16-70); PROMYELOCYTES 4 % (0-0)
[2017-12-20] VITALS (17 sets, daily range): BP systolic 106–138; BP diastolic 48–83; PULSE 64–93; RESP 18–22; TEMP 97.5–98; O2SAT 94–99
[2017-12-20] MEDS: PANTOPRAZOLE SODIUM 40 MG VIAL IV PUSH SCH ×2 (05:16→13:45)
--- NOTE | 2017-12-20 07:28 | PD.CARD.PN ---
Subjective Subjective Remarks Pt without complaints Objective Medications Current Medications Medications (Trade) Dose Ordered Sig/Jewels Route Start Time Stop Time Status Last Admin (NS Flush) 2 ml UNSCH PRN IV FLUSH 12/17/17 09:45 (Vibramycin) 50 mg BID PO 12/17/17 14:00 12/19/17 21:00 (Cozaar) 50 mg DAILY PO 12/17/17 14:00 Future Hold 12/17/17 16:04 (Pravachol) 40 mg DAILY PO 12/17/17 14:00 12/19/17 08:28 (Lopressor) 25 mg BID PO 12/17/17 14:00 12/19/17 22:51 (Zofran Inj) 4 mg Q6H PRN IVP 12/17/17 13:30 (Restoril) 15 mg HS PRN PO 12/17/17 13:30 (Narcan Inj) 0.4 mg UNSCH PRN IV PUSH 12/17/17 13:30 (Milk Of Magnesia Liq) 30 ml Q12H PRN PO 12/17/17 13:30 (Senokot) 17.2 mg Q12H PRN PO 12/17/17 13:30 (Dulcolax Supp) 10 mg DAILY PRN RECTAL 12/17/17 13:30 (Lactulose Liq) 30 ml DAILY PRN PO 12/17/17 13:30 12/19/17 08:38 Sodium Chloride 1,000 ml @ 100 mls/hr Q10H IV 12/17/17 13:45 Future Hold 12/18/17 13:21 (Apresoline Inj) 10 mg Q6H PRN IV PUSH 12/17/17 13:45 (D50w (Vial) Inj) 50 ml UNSCH PRN IV PUSH 12/17/17 13:45 (Glucagon Inj) 1 mg UNSCH PRN OTHER 12/17/17 13:45 (NovoLOG SUPPLEMENTAL SCALE) 1 ACHS SLIDING SCALE SQ 12/17/17 17:00 12/17/17 16:16 (Protonix Inj) 40 mg Q12H IV PUSH 12/17/17 13:45 12/20/17 05:16 (Tylenol) 650 mg Q6H PRN PO 12/17/17 14:45 ([place] 5-325 Mg) 1 tab Q4H PRN PO 12/17/17 14:45 ([place] 7.5-325 Mg) 1 tab Q4H PRN PO 12/17/17 14:45 12/19/17 22:50 (Morphine Inj) 4 mg Q3H PRN IV PUSH 12/17/17 14:45 (Narcan Inj) 0.4 mg UNSCH PRN IV PUSH 12/17/17 14:45 Vital Signs / I&O Vital Signs Date Time Temp Pulse Resp B/P (MAP) Pulse Ox O2 Delivery O2 Flow Rate FiO2 12/20/17 05:10 79 18 106/63 (77) 94 12/20/17 04:56 92 12/20/17 04:04 72 12/20/17 01:08 16 12/20/17 00:00 92 12/19/17 22:05 97 21 12/19/17 20:49 95 12/19/17 20:00 98.4 98 18 121/68 (85) 97 12/19/17 15:12 98.7 86 18 110/59 (76) 98 12/19/17 11:40 98.0 89 18 94/54 (67) 98 12/19/17 08:28 98.4 101 18 102/58 (73) 95 I/O 12/19/17 12/19/17 12/19/17 12/20/17 12/20/17 12/20/17 07:00 15:00 23:00 07:00 15:00 23:00 Intake Total 240 ml 950 ml 240 ml Output Total 400 ml 575 ml 450 ml Balance -160 ml 375 ml -210 ml Intake Oral 240 ml 950 ml 240 ml Output Urine Total 400 ml 575 ml 450 ml # Bowel Movements 1 Physical Exam GENERAL: Well developed, well nourished. No acute distress, morbid obese HEENT: Jugular venous pressure is normal. CHEST: Lungs clear to auscultation bilaterally. Unlabored respiratory effort. CARDIAC: Regular rate and rhythm without S3, S4, or murmur. ABDOMEN: large left LQ hematoma with ecchymosis EXTREMITIES: No clubbing, cyanosis, trace edema. Laboratory Laboratory Tests Test 12/19/17 12:36 White Blood Count 86.6 TH/MM3 Red Blood Count 2.84 MIL/MM3 Hemoglobin 8.5 GM/DL Hematocrit 25.5 % Mean Corpuscular Volume 90.0 FL Mean Corpuscular Hemoglobin 30.1 PG Mean Corpuscular Hemoglobin Concent 33.4 % Red Cell Distribution Width 17.7 % Platelet Count 202 TH/MM3 Mean Platelet Volume 8.6 FL CBC Comment AUTO DIFF Differential Total Cells Counted 100 Neutrophils % (Manual) 67 % Band Neutrophils % 8 % Monocytes % 12 % Basophils % 1 % Neutrophils # (Manual) 75.3 TH/MM3 Metamyelocytes 2 % Myelocytes 6 % Promyelocytes 4 % Differential Comment FINAL DIFF MANUAL Platelet Estimate NORMAL Platelet Morphology Comment NORMAL Polychromasia 2.0 % Prothrombin Time 11.7 SEC Prothromb Time International Ratio 1.2 RATIO Imaging Last 72 hours Impressions Abdomen/Pelvis CT 12/17/17 1035 Signed Impressions: Service Date/Time: Sunday, December 17, 2017 11:17 - CONCLUSION: Intra-abdominal pelvic contents reveal no acute abnormality with intact bony structures. Large area left lateral abdomen extending into the anterior abdomen and pelvis subcutaneous tissues of soft tissue density most likely representing hematoma with associated hemorrhage or inflammatory change in the soft tissues around this. Jeferson Mcintyre MD Assessment and Plan Problem List: (1) Elevated troponin ICD Codes: R74.8 - Abnormal levels of other serum enzymes Plan: Nonspecific, likely due to his anemia, no chest pain; given the anemia a candidate for medical therapy only at this point EF 45-50% (2) Atrial fibrillation ICD Codes: I48.91 - Unspecified atrial fibrillation Plan: Generally rate controlled, warfarin held due to anemia. (3) Hypertension ICD Codes: I10 - Essential (primary) hypertension (4) Diabetes ICD Codes: E11.9 - Type 2 diabetes mellitus without complications (5) Elevated white blood cell count ICD Codes: D72.829 - Elevated white blood cell count, unspecified Plan: getting bone marrow biopsy today Assessment and Plan hematoma- per primary team Dispo- ok for d/c from CV perspective Esther Posey MD Dec 20, 2017 07:28
[2017-12-20] MEDS: INSULIN ASPART SUPPLEMENTAL SCALE SQ SCH ×4 (08:00→20:37)
[2017-12-20 08:40] LABS: HEMATOCRIT 23.1 % (39.0-51.0); HEMOGLOBIN 7.7 GM/DL (13.0-17.0); MEAN CELL VOLUME 91.2 FL (80.0-100.0); MEAN CORPUSCULAR HEMOGLOBIN 30.3 PG (27.0-34.0); MEAN CORPUSCULAR HGB CONC 33.2 % (32.0-36.0); MEAN PLATELET VOLUME 8.9 FL (7.0-11.0); PLATELET COUNT 172 TH/MM3 (150-450); RED BLOOD COUNT 2.54 MIL/MM3 (4.50-5.90); RED CELL DISTRIBUTION WIDTH 17.9 % (11.6-17.2); WHITE BLOOD COUNT 69.4 TH/MM3 (4.0-11.0)
[2017-12-20 08:49] LABS: INTERNATIONAL NORMALIZED RATIO 1.2 RATIO; PROTHROMBIN TIME - PATIENT 11.7 SEC (9.8-11.6)
[2017-12-20 09:19] LABS: BANDS 1 % (0-6); BASOPHILS 1 % (0-2); BLASTS 1 % (0-0); CORRECTED NUCLEATED RBC 1 /100 WBC (0-0); LYMPHOCYTES 5 % (9-44); METAMYELOCYTES 3 % (0-1); MONOCYTES 7 % (0-8); MYELOCYTES 19 % (0-0); NEUTROPHIL # MANUAL DIFF 57.6 TH/MM3 (1.8-7.7); NUCLEATED RED BLOOD CELL 1 (0-0); POLYS (SEG NEUTROPHILS) 53 % (16-70); PROMYELOCYTES 7 % (0-0)
[2017-12-20 09:20] LABS: OVALOCYTES 1+ (NORMAL); TEARDROP RBCS 1+ (NORMAL)
--- NOTE | 2017-12-20 09:25 | HHI.FPPN ---
Subjective Remarks Patient seen and examined at bedside. No acute events overnight. Pt denies CP, SOB and abdominal pain. Pt had BM yesterday, non-bloody. Pt scheduled to have bone marrow bx today. Objective Vitals Vital Signs Date Time Temp Pulse Resp B/P (MAP) Pulse Ox O2 Delivery O2 Flow Rate FiO2 12/20/17 05:10 79 18 106/63 (77) 94 12/20/17 04:56 92 12/20/17 04:04 72 12/20/17 01:08 16 12/20/17 00:00 92 12/19/17 22:05 97 21 12/19/17 20:49 95 12/19/17 20:00 98.4 98 18 121/68 (85) 97 12/19/17 15:12 98.7 86 18 110/59 (76) 98 12/19/17 11:40 98.0 89 18 94/54 (67) 98 I/O 12/19/17 12/19/17 12/19/17 12/20/17 12/20/17 12/20/17 07:00 15:00 23:00 07:00 15:00 23:00 Intake Total 240 ml 950 ml 240 ml Output Total 400 ml 575 ml 450 ml Balance -160 ml 375 ml -210 ml Intake Oral 240 ml 950 ml 240 ml Output Urine Total 400 ml 575 ml 450 ml # Bowel Movements 1 Result Diagram: 12/20/17 0645 12/19/17 0353 Objective Remarks GENERAL: Well-developed patient, in no apparent distress. SKIN: Cool and dry. Large ecchymoses extending from anterior lower abdomen to left flank, HEAD: Atraumatic. Normocephalic. EYES: Extraocular motions intact. No scleral icterus. No injection or drainage. ENT: Nose without bleeding, purulent drainage or septal hematoma. Throat without erythema, tonsillar hypertrophy or exudate. Uvula midline. Airway patent. NECK: Trachea midline. No JVD or lymphadenopathy. Supple, nontender, no meningeal signs. CARDIOVASCULAR: Irregularly irregular rate and rhythm without murmurs, gallops, or rubs. RESPIRATORY:CTA BL. Breath sounds equal bilaterally. No wheezes, rales, or rhonchi. GASTROINTESTINAL: obese abdomen, soft. No guarding. Exam limited due to body habitus. Large hematoma of left lower abdomen, bruising extends across lower abdomen, mild tenderness to palpation over left side of lower abdomen. Positive bowel sounds MUSCULOSKELETAL: Extremities without clubbing, cyanosis. LE edema +2 to ankles BL. NEUROLOGICAL: Awake and alert. Motor and sensory grossly within normal limits. Normal speech. A/P Assessment and Plan Patient is a 77-year-old Male with PMHx of A. fib and aortic valve replacement (on warfarin), DM, HTN and failed Right knee replacement presents to the ED with complaints of increasing Left sided abdominal swelling and bruising that developed after he suffered a fall the day prior to admission. Pt also had complaints of CP and SOB. He was found to have WBC of 117 and elevated troponin. Currently hemodynamically stable, plan to have bone marrow bx today. Discharge Planning Unclear time frame Problem List: (1) Anemia ICD Codes: D64.9 - Anemia, unspecified Status: Acute Plan: Pt with hx of fall on night prior to admission and development of Left sided hematoma accompanied with sxs CP and SOB, now resolved DDX: malignancy vs acute development of hematoma vs GI bleed vs others. -On admission H/H of 6./ -GI consulted, appreciate recommendations -Will hold off on EGD and colonoscopy pending further evaluation by hematology and cardiology -Heme/Onc consulted, see below -Patient status post transfusion of 4 units of packed red blood cells, transfusion completed 12/18 -Coumadin held, pt given 10mg IV vitamin K -Post transfusion H&H 8.7 - H&H 12/20: 7.7/23.1 -Continue to monitor for signs of bleeding -Follow up H&H at 1600, Transfuse if hemoglobin is less than 8 Imaging: CT 12/17: Hematoma with associated hemorrhage on Left side of abdomen. (2) Elevated troponin ICD Codes: R74.8 - Abnormal levels of other serum enzymes Status: Resolved Plan: On admission troponin less than 0.02-->0.85--> 0.68. Patient denies active chest pain or shortness of breath. Patient with history of aortic valve replacement. No acute ST elevations or ischemic changes on EKG. -Cardiology consulted, appreciate recommendations -Elevated troponin likely due to demand mediated ischemia -2-D echo: Ejection fraction 45-50%, mildly reduced (3) Elevated white blood cell count ICD Codes: D72.829 - Elevated white blood cell count, unspecified Plan: Patient found to be afebrile with WBC- 117, Neutrophils-102. - Labs in March of 2017 with WBC count of 13. Trending down from 117-75 today -Heme/onc consulted, recommendations appreciated -Plan for nothing by mouth tonight and bone marrow biopsy today, possible CML -BCR-ABL pending -Chest CT 12/17 shows no acute intrathoracic process. Bony structures are intact. Peripheral smear shows markedly elevated white blood cell count. Red blood cells are predominantly normochromic and normocytic with mild aniso- and poikilocytosis. 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 A chronic myeloproliferative neoplasm should be excluded. (4) Diabetes ICD Codes: E11.9 - Type 2 diabetes mellitus without complications Plan: -hold home po meds -hypoglycemia protocol -low dose SSI -Latest B range: 130s- 190s (5) hx right knee infection Status: Acute Plan: c/w doxycycline daily regimen (6) Atrial fibrillation ICD Codes: I48.91 - Unspecified atrial fibrillation Plan: Pt is asymptomatic EKG: A fib with RVR -continue to monitor -Telemetry (7) Hypertension ICD Codes: I10 - Essential (primary) hypertension Plan: c/w HTN medications (8) Aortic valve replaced ICD Codes: Z95.2 - Presence of prosthetic heart valve Plan: -hold warfarin and asa due to concern for an acute bleed (9) Shortness of breath ICD Codes: R06.02 - Shortness of breath Status: Resolved Plan: -SOB now resolved, can be due to anemia -May have been panic attack versus cardiovascular ischemia versus CHF exacerbation -Elevated troponins - BNP 404 (10) KARYN (acute kidney injury) ICD Codes: N17.9 - Acute kidney failure, unspecified Plan: Resolving; 2.3 on admission and 1.5 for yesterday, am bmp pending History of creatinine of 0.93 in 2016 -IVF -Continue to monitor creatinine -Consider Renal US and Nephrology consult if creatinine does not trend down (11) Elevated d-dimer ICD Codes: R79.89 - Other specified abnormal findings of blood chemistry Plan: Vital signs are stable -Pt unable to tolerate VQ scan. CTA scan contraindicated due to elevated creatinine. -Chest CT with no acute process -Continue to monitor, additional imaging studies as indicated (12) Nutrition, metabolism, and development symptoms ICD Codes: R63.8 - Other symptoms and signs concerning food and fluid intake Plan: Fluids: NS 100mls/hr Electrolyte: continue to monitor, replete as needed Nutrition: NPO since midnight, pending bone marrow bx procedure GI ppx: protonix 40mg IV DVT PPX: SHELLIsEliecer Nally D MD, R1 Dec 20, 2017 09:25
[2017-12-20] MEDS: METOPROLOL TARTRATE 25 MG TAB PO SCH ×2 (09:57→20:35)
[2017-12-20] MEDS: PRAVASTATIN SOD 40 MG TAB PO SCH (09:57)
[2017-12-20] MEDS: DOXYCYCLINE HYCLATE 50 MG CAP PO SCH ×2 (09:58→20:37)
[2017-12-20] MEDS: ACETAMINOPHEN/HYDROcodone 325 MG/7.5 MG TAB PO PRN ×2 (10:09→20:36)
[2017-12-20 10:25] LABS: BICARBONATE 25.8 MEQ/L (21.0-32.0); CALCIUM 7.6 MG/DL (8.5-10.1); CREATININE 1.02 MG/DL (0.60-1.30)
--- NOTE | 2017-12-20 10:44 | PD.ONC.PN ---
Subjective Subjective Remarks Afebrile overnight. Patient resting in bed. No dyspnea or confusion. Waiting to go down for bone marrow biopsy. Objective Data Date Time Temp Pulse Resp B/P (MAP) Pulse Ox O2 Delivery O2 Flow Rate FiO2 12/20/17 05:10 79 18 106/63 (77) 94 12/20/17 04:56 92 12/20/17 04:04 72 12/20/17 01:08 16 12/20/17 00:00 92 12/19/17 22:05 97 21 12/19/17 20:49 95 12/19/17 20:00 98.4 98 18 121/68 (85) 97 12/19/17 15:12 98.7 86 18 110/59 (76) 98 12/19/17 11:40 98.0 89 18 94/54 (67) 98 12/20/17 12/20/17 12/20/17 07:00 15:00 23:00 Intake Total 240 ml Output Total 450 ml Balance -210 ml Result Diagram: 12/20/1745 12/20/17 0645 Laboratory Results Laboratory Tests Test 12/19/17 12:36 12/20/17 06:45 White Blood Count 86.6 TH/MM3 69.4 TH/MM3 Red Blood Count 2.84 MIL/MM3 2.54 MIL/MM3 Hemoglobin 8.5 GM/DL 7.7 GM/DL Hematocrit 25.5 % 23.1 % Mean Corpuscular Volume 90.0 FL 91.2 FL Mean Corpuscular Hemoglobin 30.1 PG 30.3 PG Mean Corpuscular Hemoglobin Concent 33.4 % 33.2 % Red Cell Distribution Width 17.7 % 17.9 % Platelet Count 202 TH/MM3 172 TH/MM3 Mean Platelet Volume 8.6 FL 8.9 FL CBC Comment AUTO DIFF AUTO DIFF Differential Total Cells Counted 100 100 Neutrophils % (Manual) 67 % 53 % Band Neutrophils % 8 % 1 % Monocytes % 12 % 7 % Basophils % 1 % 1 % Neutrophils # (Manual) 75.3 TH/MM3 57.6 TH/MM3 Metamyelocytes 2 % 3 % Myelocytes 6 % 19 % Promyelocytes 4 % 7 % Differential Comment FINAL DIFF MANUAL FINAL DIFF MANUAL Platelet Estimate NORMAL NORMAL Platelet Morphology Comment NORMAL NORMAL Polychromasia 2.0 % 2.0 % Prothrombin Time 11.7 SEC 11.7 SEC Prothromb Time International Ratio 1.2 RATIO 1.2 RATIO Lymphocytes % 5 % Eosinophils % 3 % Nucleated Red Blood Cells 1 /100 WBC Blastocytes 1 % Tear Drop Cells 1+ Ovalocytes 1+ Blood Urea Nitrogen 23 MG/DL Creatinine 1.02 MG/DL Random Glucose 86 MG/DL Calcium Level 7.6 MG/DL Sodium Level 139 MEQ/L Potassium Level 3.8 MEQ/L Chloride Level 106 MEQ/L Carbon Dioxide Level 25.8 MEQ/L Anion Gap 7 MEQ/L Estimat Glomerular Filtration Rate 71 ML/MIN Culture Results Microbiology Date/Time Source Procedure Growth Status 12/17/17 22:25 Blood Peripheral Aerobic Blood Culture - Preliminary NO GROWTH IN 2 DAYS Resulted 12/17/17 22:25 Blood Peripheral Anaerobic Blood Culture - Preliminary NO GROWTH IN 2 DAYS Resulted 12/17/17 22:20 Blood Peripheral Aerobic Blood Culture - Preliminary NO GROWTH IN 2 DAYS Resulted 12/17/17 22:20 Blood Peripheral Anaerobic Blood Culture - Preliminary NO GROWTH IN 2 DAYS Resulted 12/19/17 14:40 Stool Stool Stool Occult Blood (HARIS) - Final HEMOCCULT NEGATIVE Complete 12/17/17 19:00 Urine Clean Catch Urine Culture - Final 50-100,000 CFU/ML MIXED GRAM POSITIVE... Complete Administered Medications Medications (Trade) Dose Ordered Sig/Jewels Route PRN Reason Start Time Stop Time Status Last Admin Dose Admin Doxycycline Hyclate (Vibramycin) 50 mg BID PO 12/17/17 14:00 12/20/17 09:58 Losartan Potassium (Cozaar) 50 mg DAILY PO 12/17/17 14:00 Future Hold 12/17/17 16:04 Pravastatin Sodium (Pravachol) 40 mg DAILY PO 12/17/17 14:00 12/20/17 09:57 Metoprolol Tartrate (Lopressor) 25 mg BID PO 12/17/17 14:00 12/20/17 09:57 Lactulose (Lactulose Liq) 30 ml DAILY PRN PO SEVERE CONSITIPATION 12/17/17 13:30 12/19/17 08:38 Sodium Chloride 1,000 ml @ 100 mls/hr Q10H IV 12/17/17 13:45 Future Hold 12/18/17 13:21 Insulin Aspart (NovoLOG SUPPLEMENTAL SCALE) 1 ACHS SLIDING SCALE SQ 12/17/17 17:00 12/17/17 16:16 Pantoprazole Sodium (Protonix Inj) 40 mg Q12H IV PUSH 12/17/17 13:45 12/20/17 05:16 Acetaminophen/ Hydrocodone Bitart ([place] 7.5-325 Mg) 1 tab Q4H PRN PO PAIN SCALE 6 TO 10 12/17/17 14:45 12/20/17 10:09 Objective Remarks GENERAL: Elderly male, sitting up in bed in nad. SKIN: Warm and dry. HEAD: Normocephalic. EYES: No injection or drainage. NECK: Supple, trachea midline. CARDIOVASCULAR: Regular rate and rhythm RESPIRATORY: diminished at bases, otherwise clear all lung ramos. GASTROINTESTINAL: Abdomen soft, non-tender, nondistended. EXTREMITIES: No cyanosis MUSCULOSKELETAL: Adequate muscle tone. NEUROLOGICAL: awake and alert, normal speech. moving all extremities. Assessment/Plan Assessment 77y/o male admitted with abdominal wall hematoma after fall. Hematology consulted for leukocytosis. H.o chronic anticoagulation with warfarin. history of atrial fibrillation, aortic valve replacement status post TAVR procedure. 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 Plan 1. leukocytosis: bone marrow biopsy today. monitor CBC. 2. Large Abdominal wall hematoma: monitor hgb. may need to transfuse again. will check H/H later today. 3. monitor coags. would resume Coumadin only when hemoglobin remains stable and while monitoring hemoglobin Attending Statement The exam, history, and the medical decision-making described in the above note were completed with the assistance of the mid-level provider. I reviewed and agree with the findings presented. I attest that I had a [id number] encounter with the patient on the same day, and personally performed and documented my assessment and findings in the medical record. 77 yoM with atrial fibrillation, chronic anticoagulation with warfarin admitted with abdominal wall hematoma after fall at home. He was found to have leukocytosis with suspicion of CML. BCR/ABL, flow pending. Bone marrow biopsy today. Continue to monitor hemoglobin. Aby Martins Dec 20, 2017 10:44 Sandhya Montilla MD Dec 20, 2017 13:24
[2017-12-20] MEDS ORDERED: LIDOCAINE HCL 1% 20 ML VIAL ONE (13:36)
[2017-12-20] MEDS ORDERED: MIDAZOLAM HCL 2 MG/2 ML VIAL ONE (14:26)
--- NOTE | 2017-12-20 15:11 | PD.RAD ---
Post CT Procedure Prog Note Pre Procedure Diagnosis: (1) Anemia Post Procedure Diagnosis: (1) Anemia Procedure Date: Dec 20, 2017 Supervising Radiologist: Dvae Powers JR Anesthesia: Conscious Sedation Plan of Activity Patient to Unit: Nursing Unit Patient Condition: Good See PACS Report for procedural detail/treatment Biopsy Imaging Guidance: CT Side: Left Biopsy Procedure: Bone Marrow Specimen: Core Biopsy, Fine Needle Aspirate Findings: Bone marrow bx and aspiration of left iliac bone. Good samples noted. Jr. Gio,Dave Portillo MD Dec 20, 2017 15:11
--- NOTE | 2017-12-20 15:41 | RADRPT ---
EXAM DATE/TIME: 12/20/2017 14:49 [facility] COMPARISON: No previous studies available for comparison. INDICATIONS : Leukocytosis. SEDATION TIME: 20 minutes BIOPSY SITE: Left ilium MEDICATION(S): 1.) 4 mg midazolam (Versed) IV 2.) 200 mcg fentanyl (Sublimaze) IV DEVICE(S): 1.) 11 gauge Bone marrow biopsy needle MEDICAL HISTORY : Hypertension. Cardiovascular disease. Diabetes SURGICAL HISTORY : None. ENCOUNTER: Initial ACUITY: 1 day PAIN SCORE: 0/10 LOCATION: Left pelvis A total of one core specimen(s) were obtained and sent to the laboratory for pathologic evaluation. PROCEDURE: 1. CT guided bone marrow biopsy. 2. Conscious sedation with continuous EKG and oximetry monitoring. Prior to the procedure informed consent was obtained. Any appropriate prior imaging studies were rev iewed. Using automated exposure control and adjustment of the mA and/or kV according to patient size , radiation dose was kept as low as reasonably achievable to obtain optimal diagnostic quality images . DICOM format image data is available electronically for review and comparison. The site was prepped in a sterile fashion. Full sterile technique was used, including cap, mask, mihir rile gloves and gown and a large sterile sheet. Hand hygiene and 2% chlorhexidine and/or betadine/al cohol prep was utilized per protocol for cutaneous antisepsis. The skin and subcutaneous tissues wer e infiltrated with local anesthetic solution. With CT guidance the previously identified target was localized. Biopsy was performed using the presc ribed needle as above. Following biopsy marrow aspiration was performed with repeat puncture. Adequa te hemostasis was obtained with compression at the puncture site. Follow-up CT scan reveals no hemorrhage. Conscious sedation was performed with the prescribed dosages and duration as above in the presence of an independent trained radiology nurse to assist in the monitoring of the patient. EKG and oximetry remained stable throughout the procedure. The patient tolerated the procedure well and there were no complications. The patient was sent to Radiology Outpatient Unit in stable condition. CONCLUSION: 1. Uncomplicated CT guided bone marrow aspirate. 2. Uncomplicated CT guided bone marrow biopsy. Dave Powers Jr., MD on December 20, 2017 at 15:38 Board Certified Radiologist. This report was verified electronically.
[2017-12-20] MEDS ORDERED: FUROSEMIDE 20 MG/2 ML VIAL IV PUSH ONE (16:45)
[2017-12-20] MEDS ORDERED: SODIUM CHLOR 0.9% 250 ML INJ 250 ML IV ONE (16:45)
[2017-12-20 17:40] LABS: HEMATOCRIT 26.6 % (39.0-51.0); HEMOGLOBIN 8.7 GM/DL (13.0-17.0)
[2017-12-21] VITALS (21 sets, daily range): BP systolic 120–140; BP diastolic 65–85; PULSE 62–90; RESP 16–20; TEMP 97.3–98.4; O2SAT 93–99
[2017-12-21] MEDS: PANTOPRAZOLE SODIUM 40 MG VIAL IV PUSH SCH ×2 (02:20→13:45)
[2017-12-21 06:48] LABS: HEMATOCRIT 24.6 % (39.0-51.0); HEMOGLOBIN 7.9 GM/DL (13.0-17.0); MEAN CELL VOLUME 91.5 FL (80.0-100.0); MEAN CORPUSCULAR HEMOGLOBIN 29.4 PG (27.0-34.0); MEAN CORPUSCULAR HGB CONC 32.1 % (32.0-36.0); MEAN PLATELET VOLUME 8.4 FL (7.0-11.0); PLATELET COUNT 172 TH/MM3 (150-450); RED BLOOD COUNT 2.68 MIL/MM3 (4.50-5.90); RED CELL DISTRIBUTION WIDTH 18.2 % (11.6-17.2); WHITE BLOOD COUNT 60.7 TH/MM3 (4.0-11.0)
[2017-12-21 07:11] LABS: BICARBONATE 26.3 MEQ/L (21.0-32.0); CREATININE 0.9 MG/DL (0.60-1.30)
[2017-12-21] MEDS: INSULIN ASPART SUPPLEMENTAL SCALE SQ SCH ×4 (08:00→20:17)
[2017-12-21 08:48] LABS: BANDS 4 % (0-6); BASOPHILS 2 % (0-2); CORRECTED NUCLEATED RBC 2 /100 WBC (0-0); LYMPHOCYTES 4 % (9-44); METAMYELOCYTES 10 % (0-1); MONOCYTES 9 % (0-8); MYELOCYTES 17 % (0-0); NEUTROPHIL # MANUAL DIFF 51.6 TH/MM3 (1.8-7.7); NUCLEATED RED BLOOD CELL 2 (0-0); POLYS (SEG NEUTROPHILS) 53 % (16-70); PROMYELOCYTES 1 % (0-0)
[2017-12-21 08:49] LABS: OVALOCYTES 1+ (NORMAL)
[2017-12-21 08:50] LABS: ACANTHOCYTES OCC (NORMAL)
[2017-12-21] MEDS: DOXYCYCLINE HYCLATE 50 MG CAP PO SCH ×2 (09:00→20:16)
[2017-12-21] MEDS: METOPROLOL TARTRATE 25 MG TAB PO SCH ×2 (09:00→20:05)
[2017-12-21] MEDS: PRAVASTATIN SOD 40 MG TAB PO SCH (09:00)
--- NOTE | 2017-12-21 09:25 | PD.ONC.PN ---
Subjective Subjective Remarks Afebrile overnight. Patient resting in bed. Tolerated bone marrow biopsy yesterday. Hoping to go home soon, but understands that his hemoglobin has not stabilized yet. No pain from bone marrow biopsy. Objective Data Date Time Temp Pulse Resp B/P (MAP) Pulse Ox O2 Delivery O2 Flow Rate FiO2 12/21/17 08:06 93 21 12/21/17 07:00 68 12/21/17 06:15 67 12/21/17 05:11 85 12/21/17 05:02 98.0 79 20 129/68 (88) 97 12/21/17 04:07 65 12/21/17 03:25 81 12/21/17 02:09 62 12/21/17 01:02 90 12/21/17 00:06 62 12/20/17 23:03 64 12/20/17 23:00 97.6 73 22 138/83 (101) 98 12/20/17 22:06 85 12/20/17 21:36 16 12/20/17 21:11 68 12/20/17 20:27 97.5 88 18 114/58 (76) 98 12/20/17 20:07 93 12/20/17 19:35 98 21 12/20/17 16:00 98.0 72 18 124/68 (86) 99 12/20/17 15:55 80 20 111/48 (69) 97 12/20/17 15:40 71 20 112/60 (77) 97 12/20/17 15:25 97.8 81 20 126/69 (88) 96 12/20/17 12:00 73 12/20/17 12:00 98.0 71 18 110/68 (82) 99 12/21/17 12/21/17 12/21/17 07:00 15:00 23:00 Output Total 450 ml Balance -450 ml Result Diagram: 12/21/1758 12/21/17 0558 Laboratory Results Laboratory Tests Test 12/20/17 15:00 12/20/17 17:28 12/21/17 05:58 Hemoglobin 8.7 GM/DL 7.9 GM/DL Hematocrit 26.6 % 24.6 % White Blood Count 60.7 TH/MM3 Red Blood Count 2.68 MIL/MM3 Mean Corpuscular Volume 91.5 FL Mean Corpuscular Hemoglobin 29.4 PG Mean Corpuscular Hemoglobin Concent 32.1 % Red Cell Distribution Width 18.2 % Platelet Count 172 TH/MM3 Mean Platelet Volume 8.4 FL CBC Comment AUTO DIFF Differential Total Cells Counted 100 Neutrophils % (Manual) 53 % Band Neutrophils % 4 % Lymphocytes % 4 % Monocytes % 9 % Basophils % 2 % Neutrophils # (Manual) 51.6 TH/MM3 Metamyelocytes 10 % Myelocytes 17 % Promyelocytes 1 % Nucleated Red Blood Cells 2 /100 WBC Differential Comment FINAL DIFF MANUAL Platelet Estimate NORMAL Platelet Morphology Comment NORMAL Polychromasia 2.0 % Ovalocytes 1+ Acanthocytes OCC Blood Urea Nitrogen 17 MG/DL Creatinine 0.90 MG/DL Random Glucose 92 MG/DL Calcium Level 8.0 MG/DL Sodium Level 139 MEQ/L Potassium Level 3.9 MEQ/L Chloride Level 106 MEQ/L Carbon Dioxide Level 26.3 MEQ/L Anion Gap 7 MEQ/L Estimat Glomerular Filtration Rate 82 ML/MIN Culture Results Microbiology Date/Time Source Procedure Growth Status 12/19/17 14:40 Stool Stool Stool Occult Blood (HARIS) - Final HEMOCCULT NEGATIVE Complete Administered Medications Medications (Trade) Dose Ordered Sig/Ejwels Route PRN Reason Start Time Stop Time Status Last Admin Dose Admin Doxycycline Hyclate (Vibramycin) 50 mg BID PO 12/17/17 14:00 12/20/17 20:37 Losartan Potassium (Cozaar) 50 mg DAILY PO 12/17/17 14:00 Future Hold 12/17/17 16:04 Pravastatin Sodium (Pravachol) 40 mg DAILY PO 12/17/17 14:00 12/20/17 09:57 Metoprolol Tartrate (Lopressor) 25 mg BID PO 12/17/17 14:00 12/20/17 20:35 Lactulose (Lactulose Liq) 30 ml DAILY PRN PO SEVERE CONSITIPATION 12/17/17 13:30 12/19/17 08:38 Sodium Chloride 1,000 ml @ 100 mls/hr Q10H IV 12/17/17 13:45 Future Hold 12/18/17 13:21 Insulin Aspart (NovoLOG SUPPLEMENTAL SCALE) 1 ACHS SLIDING SCALE SQ 12/17/17 17:00 12/17/17 16:16 Pantoprazole Sodium (Protonix Inj) 40 mg Q12H IV PUSH 12/17/17 13:45 12/21/17 02:20 Acetaminophen/ Hydrocodone Bitart ([place] 7.5-325 Mg) 1 tab Q4H PRN PO PAIN SCALE 6 TO 10 12/17/17 14:45 12/20/17 20:36 Objective Remarks GENERAL: Elderly obese male, supine in bed, watching TV in nad. SKIN: Warm and dry. HEAD: Normocephalic. EYES: No injection or drainage. NECK: Supple, trachea midline. CARDIOVASCULAR: Regular rate and rhythm RESPIRATORY: diminished at bases, anterior ramos with occasional rhonchi. GASTROINTESTINAL: Abdomen soft, non-tender, nondistended. extensive old ecchymoses along left abdomen and left flank. EXTREMITIES: No cyanosis NEUROLOGICAL: awake and alert, normal speech. moving all extremities. Assessment/Plan Assessment 77y/o male admitted with abdominal wall hematoma after fall. Hematology following for leukocytosis. H.o chronic anticoagulation with warfarin. history of atrial fibrillation, aortic valve replacement status post TAVR procedure. 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 Plan 1. 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 await final results. 2. Large Abdominal wall hematoma: patient's hemoglobin continues to fall despite multiple blood transfusions. obtain repeat CT abdomen. may need to consult surgery. will defer to primary team. monitor serial H/H. 3. monitor coags. resume coumadin under supervision when H/H stable. Attending Statement The exam, history, and the medical decision-making described in the above note were completed with the assistance of the mid-level provider. I reviewed and agree with the findings presented. I attest that I had a [id number] encounter with the patient on the same day, and personally performed and documented my assessment and findings in the medical record. 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 s/p bone marrow. BCR/ABL ordered, but cancelled. Will reorder BCR ABL on peripheral blood specimen. s/p multiple units of PRBC with unstable hemoglobin. he may be continuing to bleed into abdominal wall hematoma. Repeat CT scan. Aby Martins Dec 21, 2017 09:25 Sandhya Montilla MD Dec 21, 2017 14:09
[2017-12-21] MEDS: ACETAMINOPHEN/HYDROcodone 325 MG/7.5 MG TAB PO PRN ×2 (11:09→20:05)
[2017-12-21] MEDS ORDERED: IOHEXOL 350 MG/ML 10 ML VIAL (for RAD DIAG) IVCONTRAST ONE (18:52)
--- NOTE | 2017-12-21 19:37 | RADRPT ---
EXAM DATE/TIME: 12/21/2017 18:30 [facility] COMPARISON: CT ABDOMEN & PELVIS W CONTRAST, December 17, 2017, 11:17. INDICATIONS : Trauma; fall, hemorrhage. IV CONTRAST: 95 cc Omnipaque 350 (iohexol) IV ORAL CONTRAST: No oral contrast ingested. RADIATION DOSE: 34.46 CTDIvol (mGy) ; Patient body habitus MEDICAL HISTORY : Cardiovascular disease. Hypertension. Renal calculi. SURGICAL HISTORY : Pacemaker. ENCOUNTER: Initial ACUITY: 1 day PAIN SCALE: 8/10 LOCATION: Left abdomen. TECHNIQUE: Volumetric scanning of the abdomen and pelvis was performed. Using automated exposure control and ad justment of the mA and/or kV according to patient size, radiation dose was kept as low as reasonably achievable to obtain optimal diagnostic quality images. DICOM format image data is available electro nically for review and comparison. FINDINGS: Lung bases demonstrate some dependent atelectasis and small effusions. No acute findings in the liver, spleen, adrenals, kidneys or pancreas. No calcified gallstones. Inferior vena cava filter present. Presumed hematoma in anterior abdominal wall is stable to slightly mild anasarca. CONCLUSION: 1. No new findings within the abdomen. Small bilateral pleural effusions. 2. Stable to slight decrease in size of presumed hematoma in lower left anterior abdominal wall. Davidson Mistry MD on December 21, 2017 at 19:29 Board Certified Radiologist. This report was verified electronically.
--- NOTE | 2017-12-21 20:33 | HHI.FPPN ---
Subjective Remarks Patient seen and examined bedside this morning. Patient states he is doing well since the bone marrow biopsy yesterday. He has continued to ambulate and void without difficulty. He continues to have some soreness in his left abdominal area which is extending posteriorly. He denies any chest pain/redness of breath/ dizziness. No acute events overnight. Objective Vitals Vital Signs Date Time Temp Pulse Resp B/P (MAP) Pulse Ox O2 Delivery O2 Flow Rate FiO2 12/21/17 17:18 98.0 73 20 120/68 99 12/21/17 15:00 72 12/21/17 15:00 97.3 72 18 133/71 (91) 98 12/21/17 14:09 97.6 80 20 123/66 96 12/21/17 11:03 98.0 84 20 135/65 (88) 97 12/21/17 11:02 74 12/21/17 08:06 93 21 12/21/17 07:00 68 12/21/17 07:00 98.0 79 20 134/72 (92) 97 12/21/17 06:15 67 12/21/17 05:11 85 12/21/17 05:02 98.0 79 20 129/68 (88) 97 12/21/17 04:07 65 12/21/17 03:25 81 12/21/17 02:09 62 12/21/17 01:02 90 12/21/17 00:06 62 12/20/17 23:03 64 12/20/17 23:00 97.6 73 22 138/83 (101) 98 12/20/17 22:06 85 12/20/17 21:36 16 12/20/17 21:11 68 12/20/17 20:27 97.5 88 18 114/58 (76) 98 12/20/17 20:07 93 I/O 12/20/17 12/20/17 12/20/17 12/21/17 12/21/17 12/21/17 07:00 15:00 23:00 07:00 15:00 23:00 Intake Total 240 ml 240 ml 680 ml Output Total 450 ml 1050 ml 450 ml 600 ml Balance -210 ml -810 ml -450 ml 80 ml Intake Oral 240 ml 240 ml 680 ml Output Urine Total 450 ml 1050 ml 450 ml 600 ml Stool Total 0 ml Result Diagram: 12/21/1755712/21/17557 Objective Remarks GENERAL: Well-developed patient, in no apparent distress. SKIN: Cool and dry. Large ecchymoses extending from anterior lower abdomen to left flank, HEAD: Atraumatic. Normocephalic. EYES: Extraocular motions intact. No scleral icterus. No injection or drainage. ENT: Nose without bleeding, purulent drainage or septal hematoma. Throat without erythema, tonsillar hypertrophy or exudate. Uvula midline. Airway patent. NECK: Trachea midline. No JVD or lymphadenopathy. Supple, nontender, no meningeal signs. CARDIOVASCULAR: Irregularly irregular rate and rhythm without murmurs, gallops, or rubs. RESPIRATORY:CTA BL. Breath sounds equal bilaterally. No wheezes, rales, or rhonchi. GASTROINTESTINAL: obese abdomen, soft. No guarding. Exam limited due to body habitus. Large hematoma of left lower abdomen, bruising extends across lower abdomen, mild tenderness to palpation over left side of lower abdomen, appears to be extending further from previous exams. Positive bowel sounds MUSCULOSKELETAL: Extremities without clubbing, cyanosis. LE edema +2 to ankles BL. NEUROLOGICAL: Awake and alert. Motor and sensory grossly within normal limits. Normal speech. A/P Assessment and Plan Patient is a 77-year-old Male with PMHx of A. fib and aortic valve replacement (on warfarin), DM, HTN and failed Right knee replacement presents to the ED with complaints of increasing Left sided abdominal swelling and bruising that developed after he suffered a fall the day prior to admission. Pt also had complaints of CP and SOB. He was found to have WBC of 117 and elevated troponin. Currently hemodynamically stable, s/p bone marrow biopsy, pending w/u for CML. Monitoring hematoma & H&H Discharge Planning Unclear time frame Problem List: (1) Anemia ICD Codes: D64.9 - Anemia, unspecified Status: Acute Plan: Pt with hx of fall on night prior to admission and development of Left sided hematoma accompanied with sxs CP and SOB, now resolved DDX: malignancy vs acute development of hematoma vs GI bleed vs others. -On admission H/H of 6.4/ -GI consulted, appreciate recommendations -Will hold off on EGD and colonoscopy pending further evaluation by hematology and cardiology - Hemoccult negative, we rest assured -Heme/Onc consulted, see below -Coumadin held, pt given 10mg IV vitami TRANSFUSION STATUS : Goal Hb >8 -Patient status post transfusion of 4 units of packed red blood cells, transfusion completed 12/18 - Hb 7.9 on 12/21, Patient status post transfusion of 1 unit, transfusion completed 12/21 , f/u post-transfusion H&H Imaging: CT 12/17: Hematoma with associated hemorrhage on Left side of abdomen. CT 12/21: No new findings. Stable to slight decrease in size of presumed hematoma and left anterior abdominal wall (2) Elevated troponin ICD Codes: R74.8 - Abnormal levels of other serum enzymes Status: Resolved Plan: On admission troponin less than 0.02-->0.85--> 0.68. Patient denies active chest pain or shortness of breath. Patient with history of aortic valve replacement. No acute ST elevations or ischemic changes on EKG. -Cardiology consulted, appreciate recommendations -Elevated troponin likely due to demand mediated ischemia -2-D echo: Ejection fraction 45-50%, mildly reduced (3) Elevated white blood cell count ICD Codes: D72.829 - Elevated white blood cell count, unspecified Plan: Patient found to be afebrile with WBC- 117, Neutrophils-102. - Labs in March of 2017 with WBC count of 13. 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, pending final results -BCR-ABL pending -Patient's hemoglobin continues to fall despite blood transfusions, Repeat CT abdomen shows no acute findings - We will resume Coumadin when H&H stable (4) Diabetes ICD Codes: E11.9 - Type 2 diabetes mellitus without complications Plan: -hold home po meds -hypoglycemia protocol -low dose SSI -Latest B range: 130s- 190s (5) hx right knee infection Status: Acute Plan: c/w doxycycline daily regimen (6) Atrial fibrillation ICD Codes: I48.91 - Unspecified atrial fibrillation Plan: Pt is asymptomatic EKG: A fib with RVR -continue to monitor -Telemetry (7) Hypertension ICD Codes: I10 - Essential (primary) hypertension Plan: c/w HTN medications (8) Aortic valve replaced ICD Codes: Z95.2 - Presence of prosthetic heart valve Plan: -hold warfarin and asa due to concern for an acute bleed (9) Shortness of breath ICD Codes: R06.02 - Shortness of breath Status: Resolved Plan: -SOB now resolved, can be due to anemia -May have been panic attack versus cardiovascular ischemia versus CHF exacerbation -Elevated troponins - BNP 404 (10) KARYN (acute kidney injury) ICD Codes: N17.9 - Acute kidney failure, unspecified Status: Resolved Plan: Resolving; 2.3 on admission and .90 for yesterday, am bmp pending History of creatinine of 0.93 in 2016 -IVF -Continue to monitor creatinine (11) Elevated d-dimer ICD Codes: R79.89 - Other specified abnormal findings of blood chemistry Plan: Vital signs are stable -Pt unable to tolerate VQ scan. CTA scan contraindicated due to elevated creatinine. -Chest CT with no acute process -Continue to monitor, additional imaging studies as indicated (12) Nutrition, metabolism, and development symptoms ICD Codes: R63.8 - Other symptoms and signs concerning food and fluid intake Plan: Fluids: NS 100mls/hr Electrolyte: continue to monitor, replete as needed Nutrition: Regular Diet GI ppx: protonix 40mg IV DVT PPX: Eliecer Turk Mallory A MD R2 Dec 21, 2017 20:33
[2017-12-21 21:15] LABS: HEMATOCRIT 29.4 % (39.0-51.0); HEMOGLOBIN 9.4 GM/DL (13.0-17.0)
[2017-12-22] VITALS (20 sets, daily range): BP systolic 117–143; BP diastolic 51–81; PULSE 68–101; RESP 16–20; TEMP 97.9–99; O2SAT 96–98
[2017-12-22] MEDS: TEMAZEPAM 15 MG CAP PO PRN ×2 (00:30→23:29)
[2017-12-22] MEDS: ACETAMINOPHEN/HYDROcodone 325 MG/7.5 MG TAB PO PRN ×3 (00:31→21:04)
[2017-12-22] MEDS: PANTOPRAZOLE SODIUM 40 MG VIAL IV PUSH SCH ×2 (00:32→12:23)
[2017-12-22 06:42] LABS: HEMATOCRIT 26.9 % (39.0-51.0); MEAN CELL VOLUME 90.7 FL (80.0-100.0); MEAN CORPUSCULAR HEMOGLOBIN 30.3 PG (27.0-34.0); MEAN CORPUSCULAR HGB CONC 33.4 % (32.0-36.0); MEAN PLATELET VOLUME 8.3 FL (7.0-11.0); PLATELET COUNT 187 TH/MM3 (150-450); RED BLOOD COUNT 2.96 MIL/MM3 (4.50-5.90); RED CELL DISTRIBUTION WIDTH 18.4 % (11.6-17.2); WHITE BLOOD COUNT 64.3 TH/MM3 (4.0-11.0)
--- NOTE | 2017-12-22 07:54 | PD.CARD.PN ---
Subjective Subjective Remarks Pt without complaints Objective Medications Current Medications Medications (Trade) Dose Ordered Sig/Jewels Route Start Time Stop Time Status Last Admin (NS Flush) 2 ml UNSCH PRN IV FLUSH 12/17/17 09:45 (Vibramycin) 50 mg BID PO 12/17/17 14:00 12/21/17 20:16 (Cozaar) 50 mg DAILY PO 12/17/17 14:00 Future Hold 12/17/17 16:04 (Pravachol) 40 mg DAILY PO 12/17/17 14:00 12/21/17 09:00 (Lopressor) 25 mg BID PO 12/17/17 14:00 12/21/17 20:05 (Zofran Inj) 4 mg Q6H PRN IVP 12/17/17 13:30 (Restoril) 15 mg HS PRN PO 12/17/17 13:30 12/22/17 00:30 (Milk Of Magnesia Liq) 30 ml Q12H PRN PO 12/17/17 13:30 (Senokot) 17.2 mg Q12H PRN PO 12/17/17 13:30 (Dulcolax Supp) 10 mg DAILY PRN RECTAL 12/17/17 13:30 (Lactulose Liq) 30 ml DAILY PRN PO 12/17/17 13:30 12/19/17 08:38 Sodium Chloride 1,000 ml @ 100 mls/hr Q10H IV 12/17/17 13:45 Future Hold 12/18/17 13:21 (Apresoline Inj) 10 mg Q6H PRN IV PUSH 12/17/17 13:45 (D50w (Vial) Inj) 50 ml UNSCH PRN IV PUSH 12/17/17 13:45 (Glucagon Inj) 1 mg UNSCH PRN OTHER 12/17/17 13:45 (NovoLOG SUPPLEMENTAL SCALE) 1 ACHS SLIDING SCALE SQ 12/17/17 17:00 12/17/17 16:16 (Protonix Inj) 40 mg Q12H IV PUSH 12/17/17 13:45 12/22/17 00:32 (Tylenol) 650 mg Q6H PRN PO 12/17/17 14:45 ([place] 5-325 Mg) 1 tab Q4H PRN PO 12/17/17 14:45 ([place] 7.5-325 Mg) 1 tab Q4H PRN PO 12/17/17 14:45 12/22/17 00:31 (Morphine Inj) 4 mg Q3H PRN IV PUSH 12/17/17 14:45 (Narcan Inj) 0.4 mg UNSCH PRN IV PUSH 12/17/17 14:45 Vital Signs / I&O Vital Signs Date Time Temp Pulse Resp B/P (MAP) Pulse Ox O2 Delivery O2 Flow Rate FiO2 12/22/17 05:27 74 12/22/17 04:15 97.9 80 18 143/51 (81) 97 12/22/17 04:06 96 12/22/17 03:02 86 12/22/17 02:15 87 12/22/17 01:30 16 12/22/17 01:27 77 12/22/17 00:22 79 12/21/17 23:24 74 12/21/17 23:18 97.3 77 18 140/85 (103) 98 12/21/17 22:08 72 12/21/17 21:04 70 12/21/17 20:05 98.4 77 16 122/65 (84) 99 12/21/17 20:00 75 12/21/17 17:18 98.0 73 20 120/68 99 12/21/17 15:00 72 12/21/17 15:00 97.3 72 18 133/71 (91) 98 12/21/17 14:09 97.6 80 20 123/66 96 12/21/17 11:03 98.0 84 20 135/65 (88) 97 12/21/17 11:02 74 12/21/17 08:06 93 21 I/O 12/21/17 12/21/17 12/21/17 12/22/17 12/22/17 12/22/17 07:00 15:00 23:00 07:00 15:00 23:00 Intake Total 680 ml Output Total 450 ml 950 ml 350 ml Balance -450 ml -270 ml -350 ml Intake Oral 680 ml Output Urine Total 450 ml 950 ml 350 ml Stool Total 0 ml Physical Exam GENERAL: Well developed, well nourished. No acute distress, morbid obese HEENT: Jugular venous pressure is normal. CHEST: Lungs clear to auscultation bilaterally. Unlabored respiratory effort. CARDIAC: Regular rate and rhythm without S3, S4, or murmur. ABDOMEN: large left LQ hematoma with ecchymosis EXTREMITIES: No clubbing, cyanosis, trace edema. Laboratory Laboratory Tests Test 12/21/17 20:34 12/22/17 06:00 Hemoglobin 9.4 GM/DL 9.0 GM/DL Hematocrit 29.4 % 26.9 % White Blood Count 64.3 TH/MM3 Red Blood Count 2.96 MIL/MM3 Mean Corpuscular Volume 90.7 FL Mean Corpuscular Hemoglobin 30.3 PG Mean Corpuscular Hemoglobin Concent 33.4 % Red Cell Distribution Width 18.4 % Platelet Count 187 TH/MM3 Mean Platelet Volume 8.3 FL CBC Comment AUTO DIFF Imaging Last 72 hours Impressions Abdomen/Pelvis CT 12/21/17 0000 Signed Impressions: Service Date/Time: Thursday, December 21, 2017 18:30 - CONCLUSION: 1. No new findings within the abdomen. Small bilateral pleural effusions. 2. Stable to slight decrease in size of presumed hematoma in lower left anterior abdominal wall. Davidson Mistry MD Bone Biopsy CT 12/20/17 0704 Signed Impressions: Service Date/Time: Wednesday, December 20, 2017 14:49 - CONCLUSION: 1. Uncomplicated CT guided bone marrow aspirate. 2. Uncomplicated CT guided bone marrow biopsy. Dave Powers Jr., MD Assessment and Plan Problem List: (1) Elevated troponin ICD Codes: R74.8 - Abnormal levels of other serum enzymes Status: Resolved (2) Atrial fibrillation ICD Codes: I48.91 - Unspecified atrial fibrillation Plan: Generally rate controlled, warfarin held due to anemia/fall/hematoma (3) Hypertension ICD Codes: I10 - Essential (primary) hypertension (4) Diabetes ICD Codes: E11.9 - Type 2 diabetes mellitus without complications (5) Elevated white blood cell count ICD Codes: D72.829 - Elevated white blood cell count, unspecified Plan: biopsy result pending Assessment and Plan hematoma- stable to improved from CT -per primary team Dispo- ok for d/c from CV perspective Esther Posey MD Dec 22, 2017 07:54
[2017-12-22] MEDS: INSULIN ASPART SUPPLEMENTAL SCALE SQ SCH ×4 (08:00→21:00)
[2017-12-22 08:23] LABS: BANDS 6 % (0-6); BASOPHILS 1 % (0-2); CORRECTED NUCLEATED RBC 1 /100 WBC (0-0); LYMPHOCYTES 4 % (9-44); METAMYELOCYTES 7 % (0-1); MONOCYTES 11 % (0-8); MYELOCYTES 14 % (0-0); NEUTROPHIL # MANUAL DIFF 53.4 TH/MM3 (1.8-7.7); NUCLEATED RED BLOOD CELL 1 (0-0); POLYS (SEG NEUTROPHILS) 50 % (16-70); PROMYELOCYTES 6 % (0-0)
[2017-12-22 08:25] LABS: POLYCHROMASIA 3.4 % (0.0-1.9)
[2017-12-22] MEDS: METOPROLOL TARTRATE 25 MG TAB PO SCH ×2 (08:51→21:04)
[2017-12-22] MEDS: PRAVASTATIN SOD 40 MG TAB PO SCH (08:51)
[2017-12-22] MEDS: DOXYCYCLINE HYCLATE 50 MG CAP PO SCH ×2 (08:52→21:00)
--- NOTE | 2017-12-22 10:05 | PD.ONC.PN ---
Subjective Subjective Remarks Afebrile overnight. Patient resting in room. Some soreness in his abdominal wall around hematoma. No changes in symptoms. Objective Data Date Time Temp Pulse Resp B/P (MAP) Pulse Ox O2 Delivery O2 Flow Rate FiO2 12/22/17 07:00 97 12/22/17 07:00 98.1 97 18 117/69 (85) 96 12/22/17 05:27 74 12/22/17 04:15 97.9 80 18 143/51 (81) 97 12/22/17 04:06 96 12/22/17 03:02 86 12/22/17 02:15 87 12/22/17 01:30 16 12/22/17 01:27 77 12/22/17 00:22 79 12/21/17 23:24 74 12/21/17 23:18 97.3 77 18 140/85 (103) 98 12/21/17 22:08 72 12/21/17 21:04 70 12/21/17 20:05 98.4 77 16 122/65 (84) 99 12/21/17 20:00 75 12/21/17 17:18 98.0 73 20 120/68 99 12/21/17 15:00 72 12/21/17 15:00 97.3 72 18 133/71 (91) 98 12/21/17 14:09 97.6 80 20 123/66 96 12/21/17 11:03 98.0 84 20 135/65 (88) 97 12/21/17 11:02 74 12/22/17 12/22/17 12/22/17 07:00 15:00 23:00 Output Total 350 ml Balance -350 ml Result Diagram: 12/22/17 0600 12/21/17 0558 Laboratory Results Laboratory Tests Test 12/21/17 20:34 12/22/17 06:00 Hemoglobin 9.4 GM/DL 9.0 GM/DL Hematocrit 29.4 % 26.9 % White Blood Count 64.3 TH/MM3 Red Blood Count 2.96 MIL/MM3 Mean Corpuscular Volume 90.7 FL Mean Corpuscular Hemoglobin 30.3 PG Mean Corpuscular Hemoglobin Concent 33.4 % Red Cell Distribution Width 18.4 % Platelet Count 187 TH/MM3 Mean Platelet Volume 8.3 FL CBC Comment AUTO DIFF Differential Total Cells Counted 100 Neutrophils % (Manual) 50 % Band Neutrophils % 6 % Lymphocytes % 4 % Monocytes % 11 % Eosinophils % 1 % Basophils % 1 % Neutrophils # (Manual) 53.4 TH/MM3 Metamyelocytes 7 % Myelocytes 14 % Promyelocytes 6 % Nucleated Red Blood Cells 1 /100 WBC Differential Comment FINAL DIFF MANUAL Platelet Estimate NORMAL Platelet Morphology Comment NORMAL Polychromasia 3.4 % Culture Results Microbiology Date/Time Source Procedure Growth Status 12/19/17 14:40 Stool Stool Stool Occult Blood (HARIS) - Final HEMOCCULT NEGATIVE Complete Administered Medications Medications (Trade) Dose Ordered Sig/Jeewls Route PRN Reason Start Time Stop Time Status Last Admin Dose Admin Doxycycline Hyclate (Vibramycin) 50 mg BID PO 12/17/17 14:00 12/22/17 08:52 Losartan Potassium (Cozaar) 50 mg DAILY PO 12/17/17 14:00 Future Hold 12/17/17 16:04 Pravastatin Sodium (Pravachol) 40 mg DAILY PO 12/17/17 14:00 12/22/17 08:51 Metoprolol Tartrate (Lopressor) 25 mg BID PO 12/17/17 14:00 12/22/17 08:51 Temazepam (Restoril) 15 mg HS PRN PO INSOMNIA 12/17/17 13:30 12/22/17 00:30 Lactulose (Lactulose Liq) 30 ml DAILY PRN PO SEVERE CONSITIPATION 12/17/17 13:30 12/19/17 08:38 Sodium Chloride 1,000 ml @ 100 mls/hr Q10H IV 12/17/17 13:45 Future Hold 12/18/17 13:21 Insulin Aspart (NovoLOG SUPPLEMENTAL SCALE) 1 ACHS SLIDING SCALE SQ 12/17/17 17:00 12/17/17 16:16 Pantoprazole Sodium (Protonix Inj) 40 mg Q12H IV PUSH 12/17/17 13:45 12/22/17 00:32 Acetaminophen/ Hydrocodone Bitart ([place] 7.5-325 Mg) 1 tab Q4H PRN PO PAIN SCALE 6 TO 10 12/17/17 14:45 12/22/17 00:31 Objective Remarks GENERAL: Elderly obese male, sitting upright in chair in nad. SKIN: Warm and dry. HEAD: Normocephalic. EYES: No injection or drainage. NECK: Supple, trachea midline. CARDIOVASCULAR: Regular rate and rhythm RESPIRATORY: clear to auscultation all lung ramos. GASTROINTESTINAL: Abdomen soft, obese non-tender, nondistended. ecchymoses noted left flank/abdomen. EXTREMITIES: No cyanosis NEUROLOGICAL: awake, alert. normal speech. moving extremities. Assessment/Plan Assessment 77y/o male admitted with abdominal wall hematoma after fall. Hematology following for leukocytosis. H.o chronic anticoagulation with warfarin. history of atrial fibrillation, aortic valve replacement status post TAVR procedure. 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 Plan 1. 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 awaiting final bone marrow pathology 2. Large Abdominal wall hematoma: repeat CT shows decreasing size of hematoma. hemoglobin improved today. monitor serial H/H. 3. will start heparin prophylaxis today. if patient tolerating without drop in hemoglobin will consider resuming coumadin. Attending Statement The exam, history, and the medical decision-making described in the above note were completed with the assistance of the mid-level provider. I reviewed and agree with the findings presented. I attest that I had a [id number] encounter with the patient on the same day, and personally performed and documented my assessment and findings in the medical record. 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 Bone marrow biopsy results pending. Spoke with labs BCR/ABL PCR on peripheral blood is pending (drawn today and will be sent out today). Will start on medication in outpatient setting. Will need close follow up in outpatient setting. On chronic anticoagulation for atrial fibrillation. Hemoglobin stable with stable to improving hematoma on CT scan. Ok to start ppx heparin and monitor hemoglobin. Aby Matrins Dec 22, 2017 10:05 Sandhya Montilla MD Dec 22, 2017 11:55
[2017-12-22] MEDS: HEPARIN SODIUM - SQ 10,000 UNITS/ML VIAL SQ SCH ×2 (12:23→23:29)
--- NOTE | 2017-12-22 12:33 | HHI.FPPN ---
Subjective Remarks Pt seen and examined. Pt has been afebrile, vital signs have been stable. Pt denies chest pain, shortness of breath. Abdominal pain is stable. He is tolerating his diet. He is interested in going to rehab after discharge. He has no additional acute concerns. Objective Vitals Vital Signs Date Time Temp Pulse Resp B/P (MAP) Pulse Ox O2 Delivery O2 Flow Rate FiO2 12/22/17 11:00 98.6 72 16 134/69 (90) 97 12/22/17 10:00 78 12/22/17 09:00 76 12/22/17 08:00 80 12/22/17 07:00 97 12/22/17 07:00 97 12/22/17 07:00 98.1 97 18 117/69 (85) 96 12/22/17 05:27 74 12/22/17 04:15 97.9 80 18 143/51 (81) 97 12/22/17 04:06 96 12/22/17 03:02 86 12/22/17 02:15 87 12/22/17 01:30 16 12/22/17 01:27 77 12/22/17 00:22 79 12/21/17 23:24 74 12/21/17 23:18 97.3 77 18 140/85 (103) 98 12/21/17 22:08 72 12/21/17 21:04 70 12/21/17 20:05 98.4 77 16 122/65 (84) 99 12/21/17 20:00 75 12/21/17 17:18 98.0 73 20 120/68 99 12/21/17 15:00 72 12/21/17 15:00 97.3 72 18 133/71 (91) 98 12/21/17 14:09 97.6 80 20 123/66 96 I/O 12/21/17 12/21/17 12/21/17 12/22/17 12/22/17 12/22/17 07:00 15:00 23:00 07:00 15:00 23:00 Intake Total 680 ml Output Total 450 ml 950 ml 350 ml Balance -450 ml -270 ml -350 ml Intake Oral 680 ml Output Urine Total 450 ml 950 ml 350 ml Stool Total 0 ml Result Diagram: 12/22/17 0600 12/21/17 0558 Objective Remarks GENERAL: Well-developed patient, in no apparent distress. SKIN: Cool and dry. Large ecchymoses extending from anterior lower abdomen to left flank, HEAD: Atraumatic. Normocephalic. EYES: Extraocular motions intact. No scleral icterus. No injection or drainage. ENT: Nose without bleeding, purulent drainage or septal hematoma. Throat without erythema, tonsillar hypertrophy or exudate. Uvula midline. Airway patent. NECK: Trachea midline. No JVD or lymphadenopathy. Supple, nontender, no meningeal signs. CARDIOVASCULAR: Irregularly irregular rate and rhythm without murmurs, gallops, or rubs. RESPIRATORY:CTA BL. Breath sounds equal bilaterally. No wheezes, rales, or rhonchi. GASTROINTESTINAL: obese abdomen, soft. No guarding. Exam limited due to body habitus. Large hematoma of left lower abdomen, bruising extends across lower abdomen, mild tenderness to palpation over left side of lower abdomen, appears to be extending further from previous exams. Positive bowel sounds MUSCULOSKELETAL: Extremities without clubbing, cyanosis. LE edema +2 to ankles BL. NEUROLOGICAL: Awake and alert. Motor and sensory grossly within normal limits. Normal speech. A/P Assessment and Plan Patient is a 77-year-old Male with PMHx of A. fib and aortic valve replacement (on warfarin), DM, HTN and failed Right knee replacement presents to the ED with complaints of increasing Left sided abdominal swelling and bruising that developed after he suffered a fall the day prior to admission. Pt also had complaints of CP and SOB. He was found to have WBC of 117 and elevated troponin. Currently hemodynamically stable, s/p bone marrow biopsy, pending w/u for CML. Monitoring hematoma & H&H Discharge Planning Pending stable H&H on anticoagulation. Likely 2-3 days. Problem List: (1) Anemia ICD Codes: D64.9 - Anemia, unspecified Status: Acute Plan: Stable Pt with hx of fall on night prior to admission and development of Left sided hematoma accompanied with sxs CP and SOB, now resolved DDX: malignancy vs acute development of hematoma vs GI bleed vs others. -On admission H/H of 6.03/19 -GI consulted, appreciate recommendations -Will hold off on EGD and colonoscopy pending further evaluation by hematology and cardiology - Hemoccult negative, we rest assured -Heme/Onc consulted, see below -Coumadin held, pt given 10mg IV vitami TRANSFUSION STATUS : Goal Hb >8 -Patient status post transfusion of 4 units of packed red blood cells, transfusion completed 12/18 - Hb 7.9 on 12/21, Patient status post transfusion of 1 unit, transfusion completed 12/21 , f/u post-transfusion H&H - Hemoglobin 9.0 12/22 Imaging: CT 12/17: Hematoma with associated hemorrhage on Left side of abdomen. CT 12/21: No new findings. Stable to slight decrease in size of presumed hematoma and left anterior abdominal wall (2) Elevated troponin ICD Codes: R74.8 - Abnormal levels of other serum enzymes Status: Resolved Plan: On admission troponin less than 0.02-->0.85--> 0.68. Patient denies active chest pain or shortness of breath. Patient with history of aortic valve replacement. No acute ST elevations or ischemic changes on EKG. -Cardiology consulted, appreciate recommendations -Pt clear for DC from Cardiology -Elevated troponin likely due to demand mediated ischemia -2-D echo: Ejection fraction 45-50%, mildly reduced (3) Elevated white blood cell count ICD Codes: D72.829 - Elevated white blood cell count, unspecified Plan: Patient found to be afebrile with WBC- 117, Neutrophils-102. - Labs in March of 2017 with WBC count of 13. Trending down from 117-64.3 today -Heme/onc consulted, recommendations appreciated -Status post bone marrow biopsy -Preliminary flow cytometry indicates patient may have CML in chronic phase, pending final results -BCR-ABL pending -Patient's hemoglobin continues to fall despite blood transfusions, Repeat CT abdomen shows no acute findings -We will resume Coumadin when H&H stable (4) Diabetes ICD Codes: E11.9 - Type 2 diabetes mellitus without complications Plan: -hold home po meds -hypoglycemia protocol -low dose SSI -Latest B range: 130s- 190s (5) hx right knee infection Status: Acute Plan: c/w doxycycline daily regimen (6) Atrial fibrillation ICD Codes: I48.91 - Unspecified atrial fibrillation Plan: Pt is asymptomatic EKG: A fib with RVR -continue to monitor -Telemetry (7) Hypertension ICD Codes: I10 - Essential (primary) hypertension Plan: c/w HTN medications (8) Aortic valve replaced ICD Codes: Z95.2 - Presence of prosthetic heart valve Plan: -hold warfarin and asa due to concern for an acute bleed (9) Shortness of breath ICD Codes: R06.02 - Shortness of breath Status: Resolved Plan: -SOB now resolved, can be due to anemia -May have been panic attack versus cardiovascular ischemia versus CHF exacerbation -Elevated troponins - BNP 404 (10) Elevated d-dimer ICD Codes: R79.89 - Other specified abnormal findings of blood chemistry Plan: Vital signs are stable -Pt unable to tolerate VQ scan. CTA scan contraindicated due to elevated creatinine. -Chest CT with no acute process -Continue to monitor, additional imaging studies as indicated (11) Nutrition, metabolism, and development symptoms ICD Codes: R63.8 - Other symptoms and signs concerning food and fluid intake Plan: Fluids: NS Pt tolerating PO Electrolyte: continue to monitor, replete as needed Nutrition: Regular Diet GI ppx: protonix 40mg DVT PPX: SCDs, Raul Pride MD R3 Dec 22, 2017 12:33
[2017-12-22] MEDS: PANTOPRAZOLE SOD 40 MG DELAYED RELEASE TAB PO SCH (14:38)
[2017-12-22 15:13] LABS: HEMATOCRIT 27.9 % (39.0-51.0)
[2017-12-23] VITALS (7 sets, daily range): BP systolic 117–150; BP diastolic 57–82; PULSE 66–98; RESP 16–18; TEMP 97.3–98.7; O2SAT 96–100
[2017-12-23 06:38] LABS: AUTOMATED NEUTROPHIL # 53.6 TH/MM3 (1.8-7.7); BASOPHIL # 1.1 TH/MM3 (0-0.2); BASOPHIL % 1.6 % (0.0-2.0); EOSINOPHIL # 0.7 TH/MM3 (0-0.4); HEMATOCRIT 26.9 % (39.0-51.0); HEMOGLOBIN 8.8 GM/DL (13.0-17.0); LYMPH % 3.8 % (9.0-44.0); LYMPHOCYTE # 2.5 TH/MM3 (1.0-4.8); MEAN CELL VOLUME 91.3 FL (80.0-100.0); MEAN CORPUSCULAR HEMOGLOBIN 29.7 PG (27.0-34.0); MEAN CORPUSCULAR HGB CONC 32.5 % (32.0-36.0); MEAN PLATELET VOLUME 8.4 FL (7.0-11.0); MONO % 10.9 % (0.0-8.0); MONOCYTE # 7.1 TH/MM3 (0-0.9); NEUT % 82.7 % (16.0-70.0); PLATELET COUNT 211 TH/MM3 (150-450); RED BLOOD COUNT 2.95 MIL/MM3 (4.50-5.90); RED CELL DISTRIBUTION WIDTH 18.3 % (11.6-17.2); WHITE BLOOD COUNT 64.9 TH/MM3 (4.0-11.0)
[2017-12-23 06:56] LABS: BICARBONATE 26.2 MEQ/L (21.0-32.0); CALCIUM 7.7 MG/DL (8.5-10.1); CREATININE 0.78 MG/DL (0.60-1.30)
[2017-12-23 06:58] LABS: CALCIUM-PROTEIN CORRECTED 8.3 MG/DL (8.5-10.1)
[2017-12-23] MEDS: INSULIN ASPART SUPPLEMENTAL SCALE SQ SCH ×2 (08:00→12:00)
[2017-12-23 08:01] LABS: BANDS 18 % (0-6); LYMPHOCYTES 1 % (9-44); METAMYELOCYTES 5 % (0-1); MONOCYTES 11 % (0-8); MYELOCYTES 15 % (0-0); NEUTROPHIL # MANUAL DIFF 55.8 TH/MM3 (1.8-7.7); POLYS (SEG NEUTROPHILS) 45 % (16-70); PROMYELOCYTES 3 % (0-0)
[2017-12-23] MEDS: DOXYCYCLINE HYCLATE 50 MG CAP PO SCH (09:00)
[2017-12-23] MEDS: LACTULOSE SYRUP 20 GM/30 ML CUP PO PRN (09:45)
[2017-12-23] MEDS: PRAVASTATIN SOD 40 MG TAB PO SCH (09:46)
[2017-12-23] MEDS: PANTOPRAZOLE SOD 40 MG DELAYED RELEASE TAB PO SCH (09:46)
[2017-12-23] MEDS: METOPROLOL TARTRATE 25 MG TAB PO SCH (09:46)
--- NOTE | 2017-12-23 10:29 | PD.ONC.PN ---
Subjective Subjective Remarks Afebrile overnight. Patient without complaint. Tolerated heparin injections yesterday without obvious bleeding. still has some mild soreness at site of abdominal hematoma but no increase in pain. Objective Data Date Time Temp Pulse Resp B/P (MAP) Pulse Ox O2 Delivery O2 Flow Rate FiO2 12/23/17 07:00 69 12/23/17 07:00 97.4 73 16 137/82 (100) 100 12/23/17 04:45 89 18 122/67 (85) 96 12/23/17 04:02 98 12/23/17 01:48 98.7 67 16 117/57 (77) 97 12/23/17 00:53 81 12/22/17 22:14 16 12/22/17 21:01 99.0 83 16 117/62 (80) 98 12/22/17 20:43 97 12/22/17 20:04 96 12/22/17 17:00 70 12/22/17 15:00 98.6 86 20 130/81 (97) 98 12/22/17 13:42 97 12/22/17 13:00 78 12/22/17 12:00 72 12/22/17 11:00 98.6 72 16 134/69 (90) 97 12/22/17 11:00 68 12/23/17 12/23/17 12/23/17 07:00 15:00 23:00 Intake Total 240 ml Output Total 775 ml Balance -535 ml Result Diagram: 12/23/17 0505 12/23/17 0505 Laboratory Results Laboratory Tests Test 12/22/17 14:53 12/23/17 05:05 Hemoglobin 9.0 GM/DL 8.8 GM/DL Hematocrit 27.9 % 26.9 % White Blood Count 64.9 TH/MM3 Red Blood Count 2.95 MIL/MM3 Mean Corpuscular Volume 91.3 FL Mean Corpuscular Hemoglobin 29.7 PG Mean Corpuscular Hemoglobin Concent 32.5 % Red Cell Distribution Width 18.3 % Platelet Count 211 TH/MM3 Mean Platelet Volume 8.4 FL Neutrophils (%) (Auto) 82.7 % Lymphocytes (%) (Auto) 3.8 % Monocytes (%) (Auto) 10.9 % Eosinophils (%) (Auto) 1.0 % Basophils (%) (Auto) 1.6 % Neutrophils # (Auto) 53.6 TH/MM3 Lymphocytes # (Auto) 2.5 TH/MM3 Monocytes # (Auto) 7.1 TH/MM3 Eosinophils # (Auto) 0.7 TH/MM3 Basophils # (Auto) 1.1 TH/MM3 CBC Comment AUTO DIFF Differential Total Cells Counted 100 Neutrophils % (Manual) 45 % Band Neutrophils % 18 % Lymphocytes % 1 % Monocytes % 11 % Eosinophils % 2 % Neutrophils # (Manual) 55.8 TH/MM3 Metamyelocytes 5 % Myelocytes 15 % Promyelocytes 3 % Differential Comment FINAL DIFF MANUAL Platelet Estimate NORMAL Platelet Morphology Comment NORMAL Polychromasia 2.0 % Blood Urea Nitrogen 16 MG/DL Creatinine 0.78 MG/DL Random Glucose 91 MG/DL Total Protein 6.0 GM/DL Calcium Level 7.7 MG/DL Sodium Level 140 MEQ/L Potassium Level 3.6 MEQ/L Chloride Level 107 MEQ/L Carbon Dioxide Level 26.2 MEQ/L Anion Gap 7 MEQ/L Estimat Glomerular Filtration Rate 96 ML/MIN Protein Corrected Calcium 8.3 MG/DL Administered Medications Medications (Trade) Dose Ordered Sig/Jewels Route PRN Reason Start Time Stop Time Status Last Admin Dose Admin Doxycycline Hyclate (Vibramycin) 50 mg BID PO 12/17/17 14:00 12/23/17 09:00 Losartan Potassium (Cozaar) 50 mg DAILY PO 12/17/17 14:00 Future Hold 12/17/17 16:04 Pravastatin Sodium (Pravachol) 40 mg DAILY PO 12/17/17 14:00 12/23/17 09:46 Metoprolol Tartrate (Lopressor) 25 mg BID PO 12/17/17 14:00 12/23/17 09:46 Temazepam (Restoril) 15 mg HS PRN PO INSOMNIA 12/17/17 13:30 12/22/17 23:29 Lactulose (Lactulose Liq) 30 ml DAILY PRN PO SEVERE CONSITIPATION 12/17/17 13:30 12/23/17 09:45 Sodium Chloride 1,000 ml @ 100 mls/hr Q10H IV 12/17/17 13:45 Future Hold 12/18/17 13:21 Insulin Aspart (NovoLOG SUPPLEMENTAL SCALE) 1 ACHS SLIDING SCALE SQ 12/17/17 17:00 12/17/17 16:16 Acetaminophen/ Hydrocodone Bitart ([place] 7.5-325 Mg) 1 tab Q4H PRN PO PAIN SCALE 6 TO 10 12/17/17 14:45 12/22/17 21:04 Heparin Sodium (Porcine) (Heparin Inj) 5,000 units Q12H SQ 12/22/17 13:00 12/22/17 23:29 Pantoprazole Sodium (Protonix) 40 mg DAILY PO 12/22/17 14:00 12/23/17 09:46 Objective Remarks GENERAL: Obese male, sitting upright in chair. SKIN: Warm and dry. HEAD: Normocephalic. EYES: No injection or drainage. NECK: Supple, trachea midline. CARDIOVASCULAR: Regular rate and rhythm RESPIRATORY: clear to auscultation all lung ramos. GASTROINTESTINAL: Abdomen soft, obese non-tender, nondistended. fading ecchymoses, left abdomen. EXTREMITIES: No cyanosis NEUROLOGICAL: awake and alert. normal speech. moving all extremities. Assessment/Plan Assessment 77y/o male admitted with abdominal wall hematoma after fall. Hematology following for leukocytosis. H.o chronic anticoagulation with warfarin. history of atrial fibrillation, aortic valve replacement status post TAVR procedure. 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 Plan 1. 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 awaiting bone marrow pathology. will follow in clinic. 2. Large Abdominal wall hematoma: repeat CT on 12/21 showed decreasing size of hematoma. hemoglobin still dropping slightly. I discussed with patient that he has conflicting needs. If we resume full dose anticoagulation, the patient has a high risk of bleeding again. However, without anticoagulation he has a high risk of thromboembolic event. The options include resuming coumadin and watching his hemoglobin, starting the patient on a low dose of Eliquis which has a lower bleeding risk than coumadin but does not currently have a reversal agent, or withholding anticoagulation altogether. We would also like Cardiology to weigh in with their opinion on anticoagulation. Attending Statement The exam, history, and the medical decision-making described in the above note were completed with the assistance of the mid-level provider. I reviewed and agree with the findings presented. I attest that I had a [id number] encounter with the patient on the same day, and personally performed and documented my assessment and findings in the medical record. 77 yoM with leukocytosis and new diagnosis of CML. Bone marrow results pending and BCR ABL results pending. Admitted after fall at home causing abdominal wall hematoma. s/p transfusion of multiple units of PRBC. Risks vs benefits of continued anticoagulation for atrial fibrillation/embolic CVA risk. close follow up in clinic Aby Martins Dec 23, 2017 10:29 Sandhya Montilla MD Dec 23, 2017 17:32
--- NOTE | 2017-12-23 11:24 | HHI.FPPN ---
Subjective Remarks Patient seen and examined this morning. Patient still has no complaints. He is questioning what rehabilitation facility is going to. Patient denies any chest pain/shortness breath/dizziness. No acute events overnight Objective Vitals Vital Signs Date Time Temp Pulse Resp B/P (MAP) Pulse Ox O2 Delivery O2 Flow Rate FiO2 12/23/17 07:00 69 12/23/17 07:00 97.4 73 16 137/82 (100) 100 12/23/17 04:45 89 18 122/67 (85) 96 12/23/17 04:02 98 12/23/17 01:48 98.7 67 16 117/57 (77) 97 12/23/17 00:53 81 12/22/17 22:14 16 12/22/17 21:01 99.0 83 16 117/62 (80) 98 12/22/17 20:43 97 12/22/17 20:04 96 12/22/17 17:00 70 12/22/17 15:00 98.6 86 20 130/81 (97) 98 12/22/17 13:42 97 12/22/17 13:00 78 12/22/17 12:00 72 I/O 12/22/17 12/22/17 12/22/17 12/23/17 12/23/17 12/23/17 07:00 15:00 23:00 07:00 15:00 23:00 Intake Total 480 ml 240 ml Output Total 350 ml 625 ml 775 ml Balance -350 ml -145 ml -535 ml Intake Oral 480 ml 240 ml Output Urine Total 350 ml 625 ml 775 ml Result Diagram: 12/23/17 0505 12/23/17 0505 Objective Remarks GENERAL: Well-developed patient, in no apparent distress. SKIN: Cool and dry. Large ecchymoses extending from anterior lower abdomen to left flank, HEAD: Atraumatic. Normocephalic. EYES: Extraocular motions intact. No scleral icterus. No injection or drainage. ENT: Nose without bleeding, purulent drainage or septal hematoma. Throat without erythema, tonsillar hypertrophy or exudate. Uvula midline. Airway patent. NECK: Trachea midline. No JVD or lymphadenopathy. Supple, nontender, no meningeal signs. CARDIOVASCULAR: Irregularly irregular rate and rhythm without murmurs, gallops, or rubs. RESPIRATORY:CTA BL. Breath sounds equal bilaterally. No wheezes, rales, or rhonchi. GASTROINTESTINAL: obese abdomen, soft. No guarding. Exam limited due to body habitus. Large hematoma of left lower abdomen, bruising extends across lower abdomen, mild tenderness to palpation over left side of lower abdomen, appears to be extending further from previous exams. Positive bowel sounds MUSCULOSKELETAL: Extremities without clubbing, cyanosis. LE edema +2 to ankles BL. NEUROLOGICAL: Awake and alert. Motor and sensory grossly within normal limits. Normal speech. A/P Assessment and Plan Patient is a 77-year-old Male with PMHx of A. fib and aortic valve replacement (on warfarin), DM, HTN and failed Right knee replacement presents to the ED with complaints of increasing Left sided abdominal swelling and bruising that developed after he suffered a fall the day prior to admission. Pt also had complaints of CP and SOB. He was found to have WBC of 117 and elevated troponin. Currently hemodynamically stable, s/p bone marrow biopsy, pending w/u for CML. Monitoring hematoma & H&H Discharge Planning Pending stable H&H on anticoagulation Problem List: (1) Anemia ICD Codes: D64.9 - Anemia, unspecified Status: Acute Plan: Stable Pt with hx of fall on night prior to admission and development of Left sided hematoma accompanied with sxs CP and SOB, now resolved DDX: malignancy vs acute development of hematoma vs GI bleed vs others. -On admission H/H of 6.03/19 -GI consulted, appreciate recommendations -Will hold off on EGD and colonoscopy pending further evaluation by hematology and cardiology - Hemoccult negative, we rest assured -Heme/Onc consulted, see below -Coumadin held, pt given 10mg IV vitamin TRANSFUSION STATUS : Goal Hb >8 -Patient status post transfusion of 4 units of packed red blood cells, transfusion completed 12/18 - Hb 7.9 on 12/21, Patient status post transfusion of 1 unit, transfusion completed 12/21 , f/u post-transfusion H&H - Hemoglobin 9.0 12/22, 9.0 12/23, stable x 24hrs Imaging: CT 12/17: Hematoma with associated hemorrhage on Left side of abdomen. CT 12/21: No new findings. Stable to slight decrease in size of presumed hematoma and left anterior abdominal wall (2) Elevated troponin ICD Codes: R74.8 - Abnormal levels of other serum enzymes Status: Resolved Plan: On admission troponin less than 0.02-->0.85--> 0.68. Patient denies active chest pain or shortness of breath. Patient with history of aortic valve replacement. No acute ST elevations or ischemic changes on EKG. -Cardiology consulted, appreciate recommendations -Pt clear for DC from Cardiology -Elevated troponin likely due to demand mediated ischemia -2-D echo: Ejection fraction 45-50%, mildly reduced (3) Elevated white blood cell count ICD Codes: D72.829 - Elevated white blood cell count, unspecified Plan: Patient found to be afebrile with WBC- 117, Neutrophils-102. - Labs in March of 2017 with WBC count of 13. 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, pending final results -BCR-ABL pending -Patient's hemoglobin continues to fall despite blood transfusions, Repeat CT abdomen shows no acute findings -We will resume Coumadin when H&H stable (4) Diabetes ICD Codes: E11.9 - Type 2 diabetes mellitus without complications Plan: -hold home po meds -hypoglycemia protocol -low dose SSI -Latest B range: 130s- 190s (5) hx right knee infection Status: Acute Plan: c/w doxycycline daily regimen (6) Atrial fibrillation ICD Codes: I48.91 - Unspecified atrial fibrillation Plan: Pt is asymptomatic EKG: A fib with RVR -continue to monitor -Telemetry (7) Hypertension ICD Codes: I10 - Essential (primary) hypertension Plan: c/w HTN medications (8) Aortic valve replaced ICD Codes: Z95.2 - Presence of prosthetic heart valve Plan: -hold warfarin and asa due to concern for an acute bleed (9) Shortness of breath ICD Codes: R06.02 - Shortness of breath Status: Resolved Plan: -SOB now resolved, can be due to anemia -May have been panic attack versus cardiovascular ischemia versus CHF exacerbation -Elevated troponins - BNP 404 (10) Elevated d-dimer ICD Codes: R79.89 - Other specified abnormal findings of blood chemistry Plan: Vital signs are stable -Pt unable to tolerate VQ scan. CTA scan contraindicated due to elevated creatinine. -Chest CT with no acute process -Continue to monitor, additional imaging studies as indicated (11) Nutrition, metabolism, and development symptoms ICD Codes: R63.8 - Other symptoms and signs concerning food and fluid intake Plan: Fluids: NS Pt tolerating PO Electrolyte: continue to monitor, replete as needed Nutrition: Regular Diet GI ppx: protonix 40mg DVT PPX: Eliecer Turk Mallory A MD R2 Dec 23, 2017 11:24
[2017-12-23 11:26] LABS: HEPATITIS A AB IGM NEGATIVE (NEGATIVE); HEPATITIS B CORE AB IGM NEGATIVE (NEGATIVE); HEPATITIS B SURFACE ANTIGEN NEGATIVE (NEGATIVE); HEPATITIS C AB IgG NEGATIVE (NEGATIVE)
[2017-12-23] MEDS ORDERED: HYDR-3583 PO (12:27)
[2017-12-23] MEDS ORDERED: PANT40TA3 PO (12:31)
[2017-12-23] MEDS ORDERED: REST15CA PO (12:32)
--- NOTE | 2017-12-23 12:32 | HHI.DCPOC ---
Discharge Care Plan Diagnosis: (1) Right knee pain (2) Atrial fibrillation (3) Elevated white blood cell count (4) Elevated troponin (5) KARYN (acute kidney injury) Goals to Promote Your Health * To prevent worsening of your condition and complications * To maintain your health at the optimal level Directions to Meet Your Goals Take your medications as prescribed Follow your dietary instruction Follow activity as directed Keep your appointments as scheduled Take your immunizations and boosters as scheduled If your symptoms worsen call your PCP, if no PCP go to Urgent Care Center or Emergency Room Smoking is Dangerous to Your Health. Avoid second hand smoke Call the 24-hour hour crisis hotline for domestic abuse at Sneha Henderson MD R2 Dec 23, 2017 12:32
[2017-12-23] MEDS: ACETAMINOPHEN/HYDROcodone 325 MG/7.5 MG TAB PO PRN (12:40)
--- NOTE | 2017-12-23 12:40 | HHI.FPPN ---
Addendum to progress note ADDENDUM Reason for addendum: Additonal documentation Additional information I spoke to history professor concerning risks and benefits of anticoagulation in light of atrial fibrillation and excessive bleeding into abdominal wall. Decision was made to hold off on anticoagulation due to patient' s bleeding risk and high fall risk. This will be reevaluated in the outpatient setting. Sneha Henderson MD R2 Dec 23, 2017 12:40
[2017-12-23] MEDS: HEPARIN SODIUM - SQ 10,000 UNITS/ML VIAL SQ SCH (13:57)
== END 2017-12-23 17:30 | DRG 812 ==
LOC: NEPE 09:18 → NEDA 12:19 → HCIN 14:18
PROVIDERS: ADMIT Family Medicine; ATTEND Family Medicine
PROC: 30233N1 Transfusion of Nonautologous Red Blood Cells into Peripheral Vein, Percutaneous Approach (ICD-10-PCS; principal; 2017-12-17)
PROC: 07DR3ZX Extraction of Iliac Bone Marrow, Percutaneous Approach, Diagnostic (ICD-10-PCS; 2017-12-20)
DX: D64.9 Anemia, unspecified (principal); N17.9 Acute kidney failure, unspecified; T84.53XA Infection and inflammatory reaction due to internal right knee prosthesis, initial encounter; C92.10 Chronic myeloid leukemia, BCR/ABL-positive, not having achieved remission; E11.22 Type 2 diabetes mellitus with diabetic chronic kidney disease; S30.1XXA Contusion of abdominal wall, initial encounter; I12.9 Hypertensive chronic kidney disease with stage 1 through stage 4 chronic kidney disease, or unspecified chronic kidney disease; I48.91 Unspecified atrial fibrillation; E66.9 Obesity, unspecified; I25.10 Atherosclerotic heart disease of native coronary artery without angina pectoris; N18.9 Chronic kidney disease, unspecified; E78.00 Pure hypercholesterolemia, unspecified; Z96.651 Presence of right artificial knee joint; Z66 Do not resuscitate; Z79.82 Long term (current) use of aspirin; Z79.84 Long term (current) use of oral hypoglycemic drugs; Z79.01 Long term (current) use of anticoagulants; Z95.5 Presence of coronary angioplasty implant and graft; Z87.891 Personal history of nicotine dependence; Z87.442 Personal history of urinary calculi; Z95.2 Presence of prosthetic heart valve; Z80.6 Family history of leukemia; Z95.0 Presence of cardiac pacemaker; Y79.2 Prosthetic and other implants, materials and accessory orthopedic devices associated with adverse incidents; W18.30XA Fall on same level, unspecified, initial encounter; Y92.000 Kitchen of unspecified non-institutional (private) residence as the place of occurrence of the external cause
CPT/HCPCS: 36430; 38222; 70450; 71260; 72125; 74177; 77012; 80048; 80053; 80074; 81001; 81206; 81207; 82272; 82607; 82728; 82746; 82948; 83010; 83540; 83550; 83615; 83690; 83880; 84155; 84484; 84550; 85007; 85014; 85018; 85027; 85060; 85097; 85379; 85384; 85610; 85730; 86850; 86900; 86901; 86920; 87040; 87086; 88184; 88185; 88237; 88264; 88305; 88311; 88313; 88377; 93005; 93306; 99152; C1830; C9113; J1644; J1815; J1940; J2250; J3010; J3430; J7030; J7050; P9016; Q9963; Q9967

== ENCOUNTER 2018-09-06 17:32 | Inpatient (IN) ==
--- NOTE | 2018-09-06 17:55 | ED ---
HPI General Chief complaint: Respiratory Symptoms Stated complaint: Resp Time Seen by Provider: 09/06/18 17:34 History of Present Illness HPI narrative: 78-year-old male with a history of hypertension, diabetes, atrial fibrillation, aortic valve replacement anticoagulated on Coumadin, CHF with echo showing EF 45-50%, PE is brought to the emergency department by EMS for evaluation of shortness of breath. Patient states he has had progressively worsening shortness of breath over the past week. States that it has mostly been occurring at night. States that it has woken him up from his sleep. States that the shortness of breath is worse with lying down and improved with sitting up. He does state he has a slight cough over the past several weeks as well. He has lower extremity edema bilaterally which is chronic. He states he does have a history of PE x3, states that he thinks these symptoms have been similar however previously he had SOB with exertion and now he does not exert himself at all due to inability to ambulate/wheelchair bound. Denies any fever , chills, nausea, vomiting, chest pain, lightheadedness, dizziness, syncope, presyncope. No other complaints. PCP Dr. Hernandez. Related Data Home Medications Medication Instructions Recorded Confirmed aspirin 81 mg PO DAILY 09/06/18 09/06/18 furosemide [Lasix] 40 mg PO DAILY 09/06/18 09/06/18 losartan 100 mg PO DAILY 09/06/18 09/06/18 lovastatin 40 mg PO DAILY 09/06/18 09/06/18 metformin 1,000 mg PO BID 09/06/18 09/06/18 metoprolol tartrate 25 mg PO BID 09/06/18 09/06/18 warfarin 5 mg PO DAILY 09/06/18 09/06/18 Allergies Allergy/AdvReac Type Severity Reaction Status Date / Time No Known Allergies Allergy Severe Uncoded 12/17/17 09:26 Review of Systems ROS: all other systems reviewed are negative [facility] Medical History Medical History Aortic stenosis (Acute) CHF (congestive heart failure) (Acute) Coronary artery disease (Acute) Hyperlipidemia (Acute) Hypertension (Acute) Leukemia (Acute) Pacemaker (Acute) Prediabetes (Acute) Pulmonary embolism (Acute) Surgical History Surgical History Aortic valve replaced (Acute) Coronary angioplasty status (Acute) Status post knee surgery (Acute) Family History Family History Other Family history normal Social History Social History Substance History: No History of Abuse Second Hand Smoke Exposure: No Smoking Status: Former smoker Tobacco Type: Cigarettes How Often Do You Have a Drink Containing Alcohol: 4 or more times a week Recent Travel in [facility] within the Last 8 Weeks: No Recent Out of Country Travel within the Last 8 Weeks: No Exam Narrative Exam Narrative: GENERAL: Obese male patient in no acute distress who is nontoxic appearing. SKIN: Warm and dry. HEAD: Normocephalic and atraumatic. EYES: No injection, drainage, or hyphema noted. PERRLA. EOMI. ENT: No nasal drainage noted. Oropharynx is clear. NECK: Supple and the trachea is midline. CARDIOVASCULAR: Regular rate and rhythm. RESPIRATORY: Breath sounds are equal bilaterally with no accessory muscle use, wheezing, rhonchi, or crackles. GASTROINTESTINAL: Abdomen is soft, non-tender, and nondistended. MUSCULOSKELETAL: Bilateral lower extremity edema with chronic skin changes noted. No obvious deformities, cyanosis, or ecchymosis is present throughout the upper and lower extremities. Patient has full range of motion without any signs of neurovascular compromise. Distal pulses are 2+ throughout. NEUROLOGICAL: Awake, alert, and oriented. Normal speech and gait. Cranial nerves are grossly intact. Course Initial Documented Vital Signs Temperature 98.5 F 09/06/18 17:52 Pulse Rate 72 09/06/18 17:52 Respiratory Rate 18 09/06/18 17:52 Blood Pressure 145/66 H 09/06/18 17:52 Pulse Oximetry 96 09/06/18 17:52 Last Documented Vital Signs Temperature 97.4 F L 09/07/18 04:00 Pulse Rate 90 09/07/18 04:00 Respiratory Rate 18 09/07/18 04:00 Blood Pressure 171/79 H 09/07/18 04:00 Pulse Oximetry 96 09/07/18 04:00 Medical Decision Making ANGUS Attestation ANGUS supervised visit: Yes Attestation: I, Dr. Parra, have reviewed the advance practice practitioner' s documentation and am in agreement, met with the patient face to face, made the diagnosis, and the medical decision making was done by me. *My assessment and Findings: Hemodynamically stable to saturation in the mid 90s on room air. No use of accessory muscles. Discussed with mid-level that since the patient had previous PE is not a good candidate for dimer and will go to go and obtain a CT angiogram at point of care. MDM Narrative Medical decision making narrative: 78-year-old male presents to the emergency department for evaluation of shortness of breath progressively worsening over the past week. Patient is afebrile, vital signs are stable. IV access is obtained, labs have been drawn and sent. Patient is placed on cardiac telemetry and pulse oximetry monitoring. EKG shows irregular paced rhythm, no acute ST elevations or depressions. CBC shows mild anemia, otherwise unremarkable. INR is therapeutic at 2.0. CMP is unremarkable. Troponin is less than 0.02. BNP is elevated at 1081. Chest x-ray shows bibasilar areas of consolidation or atelectasis being worse on the right with a suspected right effusion. CT pulmonary angiogram shows filling defects within the lower lobes bilaterally suggesting small bilateral pulmonary emboli. Moderate right and small left pleural effusion. Patient has remained stable while here in the emergency department. Heparin drip initiated due to PE despite anticoagulation with warfarin. I discussed the case with Dr. Doran [facility] who requests stat echocardiogram ordered to rule out acute right heart failure. Order placed per her request. Patient admitted to her service for PE and CHF exacerbation. Medical Screen Exam Complete: Yes Emergency Medical Condition: Yes Differential Diagnosis Differential Diagnosis: CHF exacerbation versus PE versus pneumonia versus RI Medical Records Medical records reviewed: Yes I reviewed the patient's medical records. Lab Data Lab results reviewed: Yes I reviewed the patient's lab results. Result diagrams: 09/07/18 04:43 09/07/18 04:43 Lab Results 09/06/18 09/06/18 09/06/18 Range/Units 18:05 18:05 18:05 WBC 5.9 (4.0-11.0) th/mm3 RBC 3.77 L (4.50-5.90) mil/mm3 Hgb 11.6 L (13.0-17.0) gm/dL Hct 34.9 L (39.0-51.0) % MCV 92.5 (80.0-100.0) fL MCH 30.9 (27.0-34.0) pg MCHC 33.4 (32.0-36.0) % RDW 20.8 H (11.6-17.2) % Plt Count 207 (150-450) th/mm3 MPV 7.9 (7.0-11.0) fL Neut % (Auto) 70.8 H (16.0-70.0) % Lymph % (Auto) 12.7 (9.0-44.0) % Routt % (Auto) 13.4 H (0.0-8.0) % Eos % (Auto) 2.3 (0.0-4.0) % Baso % (Auto) 0.8 (0.0-2.0) % Neut # (Auto) 4.2 (1.8-7.7) th/mm3 Lymph # (Auto) 0.7 L (1.0-4.8) th/mm3 Routt # (Auto) 0.8 (0.0-0.9) th/mm3 Eos # (Auto) 0.1 (0.0-0.4) th/mm3 Baso # (Auto) 0.0 (0.0-0.2) th/mm3 WBC Differential . Differential Comment Auto diff final PT (9.8-11.6) sec INR Ratio APTT (24.3-30.1) sec Sodium 137 (136-145) meq/L Potassium 4.6 (3.5-5.1) meq/L Chloride 106 (98-107) meq/L Carbon Dioxide 23.9 (21.0-32.0) meq/L Anion Gap 7 (5-15) meq/L BUN 20 H (7-18) mg/dL Creatinine 1.03 (0.60-1.30) mg/dL Estimated GFR 70 L (>89) mL/min POC Glucose (68-110) mg/dl Random Glucose 109 H (74-106) mg/dL Calcium 8.8 (8.5-10.1) mg/dL Total Bilirubin 0.7 (0.2-1.0) mg/dL AST 19 (15-37) U/L ALT 19 (12-78) U/L Alkaline Phosphatase 127 H (45-117) U/L Troponin I Less than 0.02 L (0.02-0.05) ng/mL B-Natriuretic Peptide 1081 H (0-100) pg/mL Total Protein 6.8 (6.4-8.2) g/dL Albumin 3.3 L (3.4-5.0) g/dL 09/06/18 09/07/18 09/07/18 Range/Units 18:05 03:32 04:43 WBC (4.0-11.0) th/mm3 RBC (4.50-5.90) mil/mm3 Hgb (13.0-17.0) gm/dL Hct (39.0-51.0) % MCV (80.0-100.0) fL MCH (27.0-34.0) pg MCHC (32.0-36.0) % RDW (11.6-17.2) % Plt Count (150-450) th/mm3 MPV (7.0-11.0) fL Neut % (Auto) (16.0-70.0) % Lymph % (Auto) (9.0-44.0) % Routt % (Auto) (0.0-8.0) % Eos % (Auto) (0.0-4.0) % Baso % (Auto) (0.0-2.0) % Neut # (Auto) (1.8-7.7) th/mm3 Lymph # (Auto) (1.0-4.8) th/mm3 Routt # (Auto) (0.0-0.9) th/mm3 Eos # (Auto) (0.0-0.4) th/mm3 Baso # (Auto) (0.0-0.2) th/mm3 WBC Differential Differential Comment PT 20.1 H (9.8-11.6) sec INR 2.0 Ratio APTT 38.0 H 106.7 H* D (24.3-30.1) sec Sodium (136-145) meq/L Potassium (3.5-5.1) meq/L Chloride (98-107) meq/L Carbon Dioxide (21.0-32.0) meq/L Anion Gap (5-15) meq/L BUN (7-18) mg/dL Creatinine (0.60-1.30) mg/dL Estimated GFR (>89) mL/min POC Glucose 127 H (68-110) mg/dl Random Glucose (74-106) mg/dL Calcium (8.5-10.1) mg/dL Total Bilirubin (0.2-1.0) mg/dL AST (15-37) U/L ALT (12-78) U/L Alkaline Phosphatase (45-117) U/L Troponin I (0.02-0.05) ng/mL B-Natriuretic Peptide (0-100) pg/mL Total Protein (6.4-8.2) g/dL Albumin (3.4-5.0) g/dL 09/07/18 09/07/18 Range/Units 04:43 04:43 WBC 4.9 (4.0-11.0) th/mm3 RBC 3.55 L (4.50-5.90) mil/mm3 Hgb 11.1 L (13.0-17.0) gm/dL Hct 33.6 L (39.0-51.0) % MCV 94.7 (80.0-100.0) fL MCH 31.3 (27.0-34.0) pg MCHC 33.1 (32.0-36.0) % RDW 20.3 H (11.6-17.2) % Plt Count 175 (150-450) th/mm3 MPV 7.8 (7.0-11.0) fL Neut % (Auto) 67.4 (16.0-70.0) % Lymph % (Auto) 14.9 (9.0-44.0) % Routt % (Auto) 14.0 H (0.0-8.0) % Eos % (Auto) 2.9 (0.0-4.0) % Baso % (Auto) 0.8 (0.0-2.0) % Neut # (Auto) 3.3 (1.8-7.7) th/mm3 Lymph # (Auto) 0.7 L (1.0-4.8) th/mm3 Routt # (Auto) 0.7 (0.0-0.9) th/mm3 Eos # (Auto) 0.1 (0.0-0.4) th/mm3 Baso # (Auto) 0.0 (0.0-0.2) th/mm3 WBC Differential . Differential Comment Auto diff final PT (9.8-11.6) sec INR Ratio APTT (24.3-30.1) sec Sodium 142 (136-145) meq/L Potassium 4.0 (3.5-5.1) meq/L Chloride 106 (98-107) meq/L Carbon Dioxide 28.6 (21.0-32.0) meq/L Anion Gap 7 (5-15) meq/L BUN 17 (7-18) mg/dL Creatinine 0.93 (0.60-1.30) mg/dL Estimated GFR 78 L (>89) mL/min POC Glucose (68-110) mg/dl Random Glucose 114 H (74-106) mg/dL Calcium 8.3 L (8.5-10.1) mg/dL Total Bilirubin (0.2-1.0) mg/dL AST (15-37) U/L ALT (12-78) U/L Alkaline Phosphatase (45-117) U/L Troponin I (0.02-0.05) ng/mL B-Natriuretic Peptide (0-100) pg/mL Total Protein (6.4-8.2) g/dL Albumin (3.4-5.0) g/dL Imaging Data Radiologist's impression: Venous Doppler Study 09/06/18 17:51 CONCLUSION: 1. The study is negative for bilateral lower extremity deep venous thrombosis. Chest X-Ray 09/06/18 17:52 CONCLUSION: Bibasilar areas of consolidation or atelectasis being worse on the right with a suspected right effusion. Chest CTA 09/06/18 17:53 CONCLUSION: 1. Filling defects within the lower lobes bilaterally suggesting small bilateral pulmonary emboli. 2. Moderate right and small left pleural effusion. 3. Bibasilar consolidation likely atelectasis. 4. Coronary artery calcifications. 5. Aortic valve replacement. Discharge Plan Discharge Disposition Patient Disposition: 30 Still Patient Discharge Condition Condition: Serious Discharge Details Diagnosis: Acute pulmonary embolus, Acute exacerbation of CHF (congestive heart failure) Physicians Team ED Provider: Chance Parra ED Midlevel Provider: Cathi Kendall Primary Care Provider: Lai Hernandez Attending Provider: Andre Tovar Other Providers: Russell Rogers Discharge Interventions Interventions: ED Discharge Assessment Last Done: 09/06/18 23:37 Status ED Status: Left Department Discharge Information Discharge Date/Time: 09/06/18 23:37
[2018-09-06 18:14] LABS: Baso % (Auto) 0.8 % (0.0-2.0); Eos # (Auto) 0.1 th/mm3 (0.0-0.4); Eos % (Auto) 2.3 % (0.0-4.0); Hematocrit 34.9 % (39.0-51.0); Hemoglobin 11.6 gm/dL (13.0-17.0); Lymph # (Auto) 0.7 th/mm3 (1.0-4.8); Lymph % (Auto) 12.7 % (9.0-44.0); Mean Corpuscular HGB Conc 33.4 % (32.0-36.0); Mean Corpuscular Hemoglobin 30.9 pg (27.0-34.0); Mean Corpuscular Volume 92.5 fL (80.0-100.0); Mean Platelet Volume 7.9 fL (7.0-11.0); Mono # (Auto) 0.8 th/mm3 (0.0-0.9); Mono % (Auto) 13.4 % (0.0-8.0); Neut # (Auto) 4.2 th/mm3 (1.8-7.7); Neut % (Auto) 70.8 % (16.0-70.0); Platelet Count 207 th/mm3 (150-450); Red Blood Count 3.77 mil/mm3 (4.50-5.90); Red Cell Distribution Width 20.8 % (11.6-17.2); White Blood Count 5.9 th/mm3 (4.0-11.0)
[2018-09-06 18:25] LABS: Prothrombin Time 20.1 sec (9.8-11.6)
--- NOTE | 2018-09-06 18:27 | XR ---
EXAM DATE: 09/06/2018 5:52 PM EDT AGE/SEX: 78 years / Male INDICATIONS: Short of breath. CLINICAL DATA: This is the patient's initial encounter. Patient reports that signs and symptoms have been present for 1 day and indicates a pain score of 0/10. MEDICAL/SURGICAL HISTORY: Cardiovascular disease. Hypertension. Renal calculi. Pacemaker. COMPARISON: [facility] [place], CHEST SINGLE AP, 04/06/2017. . FINDINGS: There is a pacing device seen in the left chest. The heart size is enlarged. This increased density a t the bases bilaterally being worse on the right. There is silhouetting of the hemidiaphragms being w orse on the right. Some degree of right effusion needs to be considered. CONCLUSION: Bibasilar areas of consolidation or atelectasis being worse on the right with a suspected right effus ion. Electronically signed by: Bahman Martins MD 09/06/2018 6:26 PM EDT
[2018-09-06 18:32] LABS: Albumin 3.3 g/dL (3.4-5.0); Anion Gap 7 meq/L (5-15); Aspartate Aminotransferase 19 U/L (15-37); Blood Urea Nitrogen 20 mg/dL (7-18); Calcium 8.8 mg/dL (8.5-10.1); Carbon Dioxide 23.9 meq/L (21.0-32.0); Chloride 106 meq/L (98-107); Glomerular Filtration Rate 70 mL/min (>89); Glucose,Random 109 mg/dL (74-106); Potassium 4.6 meq/L (3.5-5.1); Sodium 137 meq/L (136-145)
[2018-09-06 18:33] LABS: Alanine Aminotransferase 19 U/L (12-78)
[2018-09-06 18:37] LABS: Alkaline Phosphatase 127 U/L (45-117); Total Protein 6.8 g/dL (6.4-8.2)
--- NOTE | 2018-09-06 19:51 | US ---
EXAM DATE: 09/06/2018 5:51 PM EDT AGE/SEX: 78 years / Male INDICATIONS: Bilateral Lower leg swelling. CLINICAL DATA: This is the patient's initial encounter. Patient reports that signs and symptoms have been present for 1 day and indicates a pain score of 5/10. MEDICAL/SURGICAL HISTORY: Hypertension. Aortic stenosis. Leukemia. Pacemaker. Prediabetes. Pulm onary embolism. . Aortic valve replaced. Coronary angioplasty. COMPARISON: No prior exams available for comparison. TECHNIQUE: Venous ultrasound of both lower extremities was performed from the inguinal ligament to t he proximal calf. Real-time, color Doppler and spectral tracing, compression and augmentation techni ques were used. FINDINGS: Right Leg: Normal compression of the deep venous system from the inguinal region to the proximal avinash f. No echogenic clot is seen. Normal response of the venous system to augmentation and respiration. Left Leg: Normal compression of the deep venous system from the inguinal region to the proximal calf . No echogenic clot is seen. Normal response of the venous system to augmentation and respiration. Other: None. CONCLUSION: 1. The study is negative for bilateral lower extremity deep venous thrombosis. Electronically signed by: Levi Keating MD 09/06/2018 7:49 PM EDT
--- NOTE | 2018-09-06 20:31 | CT ---
EXAM DATE: 09/06/2018 6:50 PM EDT AGE/SEX: 78 years / Male INDICATIONS: Increasing shortness of breath. CLINICAL DATA: This is the patient's initial encounter. Patient reports that signs and symptoms have been present for 1 week and indicates a pain score of 0/10. MEDICAL/SURGICAL HISTORY: Cardiovascular disease. Leukemia. Hypertension. Pacemaker. Aortic valve replacement RADIATION DOSE: 25.21 CTDI (mGy) COMPARISON: No prior exams available for comparison. TECHNIQUE: Volumetric scanning was performed using a multi-row detector CT scanner during bolus infu marybeth of 71 ml Omnipaque 350 (iohexol) nonionic water-soluble contrast as a single exam dose. The joyce a was post processed with a variety of visualization algorithms including full volume maximum intensi ty projection and sliding thin slab reformation. Using automated exposure control and adjustment of t he mA and/or kV according to patient size, radiation dose was kept as low as reasonably achievable to obtain optimal diagnostic quality images. DICOM format image data is available electronically for r eview and comparison. FINDINGS: Pulmonary Arteries: There are some filling defects within the lower lobe pulmonary arteries bilatera lly suggesting some small emboli.. The left and right pulmonary arteries are normal in diameter. Lung: Bibasilar consolidation. Effusion: Moderate right and small left pleural effusion. Mediastinum: No evidence of mediastinal or hilar adenopathy. Cardiomegaly. Extensive coronary artery calcifications. Other: The axilla is unremarkable. Aortic valve replacement. CONCLUSION: 1. Filling defects within the lower lobes bilaterally suggesting small bilateral pulmonary emboli. 2. Moderate right and small left pleural effusion. 3. Bibasilar consolidation likely atelectasis. 4. Coronary artery calcifications. 5. Aortic valve replacement. Electronically signed by: Levi Keating MD 09/06/2018 8:29 PM EDT
[2018-09-06] MEDS: Heparin Drip 25,000 UNIT/250 ML BAG IV.CONT PRN (21:32)
[2018-09-06] MEDS ORDERED: Acetaminophen 325 MG Tablet PO PRN (22:18)
[2018-09-06] MEDS ORDERED: Bisacodyl 10 MG Supp RECTAL PRN (22:18)
[2018-09-06] MEDS ORDERED: Dextrose 50% in Water 50 ML Vial IV.PUSH PRN (22:20)
--- NOTE | 2018-09-06 22:26 | P.HP ---
History of Present Illness Service: [facility] Primary Care Physician: Lai Hernandez MD History of Present Illness: 78-year-old male past medical history of PE x3 anticoagulated on Coumadin, aortic valve replacement, hypertension, hyperlipidemia, diabetes mellitus, CHF ( last EF 45-50%) and CAD status post stent x5 presents to the emergency department for evaluation of shortness of breath since Wednesday. The patient also endorses an accompanying cough productive of clear mucus. He denies any fever/chills. INR was 2.0. The patient denies any associated chest pain. No abdominal pain. No nausea/vomiting/diarrhea. No lateralizing signs/symptoms. CTA significant for small bilateral lower lobe pulmonary emboli. Inpatient Certification: I certify that the inpatient services were ordered in accordance with Medicare regulations governing the order. This includes certification that hospital inpatient services are reasonable and necessary and in the case of services not specified as inpatient-only under 42 CFR 419.22(n), that they are appropriately provided as inpatient services in accordance to with the 2-midnight benchmark under 43 CFR 412.3(e) Estimated Total Length of Stay (Days): 2 Plans for Post Hospital Care: Not yet determined Review of Systems All other systems reviewed negative except as stated in HPI PMFSH - History History Provided By: Patient - Medical History Medical History: Medical History (Last Updated 09/06/18 @ 22:22 by Marta Doran MD) Aortic stenosis CHF (congestive heart failure) Coronary artery disease Hyperlipidemia Hypertension Leukemia Pacemaker Prediabetes Pulmonary embolism - Surgical History Surgical History: Surgical History (Last Updated 09/06/18 @ 22:22 by Marta Doran MD) Aortic valve replaced Coronary angioplasty status Status post knee surgery - Family History Family History: Family History (Last Updated 09/06/18 @ 22:23 by Marta Doran MD) Other Family history normal - Tobacco History Smoking Status: Never smoker - Alcohol History How Often Do You Have a Drink Containing Alcohol: 2 to 3 times a week - Substance Use History Substance History: No History of Abuse - Travel History Recent Travel in the [place] Within the Last 8 Weeks: No Recent Travel Out of the Country Within the Last 8 Weeks: No - Immunization History Tetanus Immunization: Unsure Medications and Allergies Active Medications: Active Medications Heparin Sodium/Dextrose (Heparin/D5w 25,000 U/250 Ml) 25,000 unit in 250 mls @ 0 mls/hr IV.CONT TITRATE PRN; Protocol PRN Reason: Per Protocol Last Admin: 09/06/18 21:32 Dose: 1,800 units/hr, 18 mls/hr Allergies Allergy/AdvReac Type Severity Reaction Status Date / Time No Known Allergies Allergy Severe Uncoded 12/17/17 09:26 Home Medications Medication Instructions Recorded Confirmed Type aspirin 81 mg PO DAILY 09/06/18 09/06/18 History furosemide [Lasix] 40 mg PO DAILY 09/06/18 09/06/18 History losartan 100 mg PO DAILY 09/06/18 09/06/18 History lovastatin 40 mg PO DAILY 09/06/18 09/06/18 History metformin 1,000 mg PO BID 09/06/18 09/06/18 History metoprolol tartrate 25 mg PO BID 09/06/18 09/06/18 History warfarin 5 mg PO DAILY 09/06/18 09/06/18 History Exam Vital signs: Vital Signs 09/06/18 17:52 09/06/18 18:23 09/06/18 19:51 Temperature 98.5 F Pulse Rate 72 84 Respiratory Rate 18 18 Blood Pressure 145/66 H 166/79 H Pulse Oximetry 96 98 95 09/06/18 21:58 Temperature Pulse Rate 96 H Respiratory Rate 18 Blood Pressure 115/92 H Pulse Oximetry 95 Intake & Output 09/06/18 09/06/18 09/07/18 06:59 18:59 06:59 Output Total 350 / 350 Balance -350 / -350 Weight 145.15 kg Output: Urine 350 / 350 Other: # Voids 2 Narrative: Gen.: No acute distress Head: Normocephalic. Atraumatic. EENT: Pupils equal round and reactive to light. Nose without drainage. Airway intact. Throat without injection. Cardiovascular: Regular rate and rhythm. No murmurs, rubs or gallops. Respiratory: Lungs clear to auscultation bilaterally. No wheezes or rhonchi. Abdomen: Soft, nontender, nondistended. No peritoneal signs. Musculoskeletal: No gross deformities. No edema. Skin: No obvious rashes or erythema. Neuro: Sensory and motor grossly intact. Cranial nerves II through XII grossly intact. Results - Labs CBC & Chem 7: 09/06/18 18:05 09/06/18 18:05 Labs: Laboratory Results - last 24 hr 09/06/18 09/06/18 09/06/18 18:05 18:05 18:05 WBC 5.9 RBC 3.77 L Hgb 11.6 L Hct 34.9 L MCV 92.5 MCH 30.9 MCHC 33.4 RDW 20.8 H Plt Count 207 MPV 7.9 Neut % (Auto) 70.8 H Lymph % (Auto) 12.7 [place] % (Auto) 13.4 H Eos % (Auto) 2.3 Baso % (Auto) 0.8 Neut # (Auto) 4.2 Lymph # (Auto) 0.7 L [place] # (Auto) 0.8 Eos # (Auto) 0.1 Baso # (Auto) 0.0 WBC Differential . Differential Comment Auto diff final PT INR APTT Sodium 137 Potassium 4.6 Chloride 106 Carbon Dioxide 23.9 Anion Gap 7 BUN 20 H Creatinine 1.03 Estimated GFR 70 L Random Glucose 109 H Calcium 8.8 Total Bilirubin 0.7 AST 19 ALT 19 Alkaline Phosphatase 127 H Troponin I Less than 0.02 L B-Natriuretic Peptide 1081 H Total Protein 6.8 Albumin 3.3 L 09/06/18 18:05 WBC RBC Hgb Hct MCV MCH MCHC RDW Plt Count MPV Neut % (Auto) Lymph % (Auto) [place] % (Auto) Eos % (Auto) Baso % (Auto) Neut # (Auto) Lymph # (Auto) [place] # (Auto) Eos # (Auto) Baso # (Auto) WBC Differential Differential Comment PT 20.1 H INR 2.0 APTT 38.0 H Sodium Potassium Chloride Carbon Dioxide Anion Gap BUN Creatinine Estimated GFR Random Glucose Calcium Total Bilirubin AST ALT Alkaline Phosphatase Troponin I B-Natriuretic Peptide Total Protein Albumin - Imaging Impressions Venous Doppler Study 09/06/18 17:51 CONCLUSION: 1. The study is negative for bilateral lower extremity deep venous thrombosis. Chest X-Ray 09/06/18 17:52 CONCLUSION: Bibasilar areas of consolidation or atelectasis being worse on the right with a suspected right effusion. Chest CTA 09/06/18 17:53 CONCLUSION: 1. Filling defects within the lower lobes bilaterally suggesting small bilateral pulmonary emboli. 2. Moderate right and small left pleural effusion. 3. Bibasilar consolidation likely atelectasis. 4. Coronary artery calcifications. 5. Aortic valve replacement. Caprini VTE Risk Assessment Caprini VTE Risk Assessment: Moderate/High Risk (score >= 2) Caprini Risk Assessment Model: Point Value = 1 Point Value = 2 Point Value = 3 Point Value = 5 Age 41-60 Minor surgery BMI > 25 kg/m2 Swollen legs Varicose veins or History of unexplained or recurrent spontaneous Oral contraceptives or hormone replacement Sepsis (< 1 month) Serious lung disease, including pneumonia (< 1 month) Abnormal pulmonary function Acute myocardial infarction Congestive heart failure (< 1 month) History of inflammatory bowel disease Medical patient at bed rest Age 61-74 Arthroscopic surgery Major open surgery (> 45 min) Laparoscopic surgery (> 45 min) Malignancy Confined to bed (> 72 hours) Immobilizing plaster cast Central venous access Age >= 75 History of VTE Family history of VTE Factor V Leiden Prothrombin [id number] Lupus anticoagulant Anticardiolipin antibodies Elevated serum homocysteine Heparin-induced thrombocytopenia Other congenital or acquired thrombophilia Stroke (< 1 month) Elective arthroplasty Hip, pelvis, or leg fracture Acute spinal cord injury (< 1 month) Prophylaxis Regimen: Total Risk Factor Score Risk Level Prophylaxis Regimen 0-1 Low Early ambulation 2 Moderate Order ONE of the following: *Sequential Compression Device (SCD) *Heparin 5000 units SQ BID 3-4 Higher Order ONE of the following medications: *Heparin 5000 units SQ TID *Enoxaparin/Lovenox 40 mg SQ daily (WT < 150 kg, CrCl > 30 mL/min) *Enoxaparin/Lovenox 30 mg SQ daily (WT < 150 kg, CrCl > 10-29 mL/min) *Enoxaparin/Lovenox 30 mg SQ BID (WT < 150 kg, CrCl > 30 mL/min) AND/OR *Sequential Compression Device (SCD) 5 or more Highest Order ONE of the following medications: *Heparin 5000 units SQ TID (Preferred with Epidurals) *Enoxaparin/Lovenox 40 mg SQ daily (WT < 150 kg, CrCl > 30 mL/min) *Enoxaparin/Lovenox 30 mg SQ daily (WT < 150 kg, CrCl > 10-29 mL/min) *Enoxaparin/Lovenox 30 mg SQ BID (WT < 150 kg, CrCl > 30 mL/min) AND *Sequential Compression Device (SCD) Assessment and Plan - Plan Assessment/plan: 1. Bilateral PE Pulmonary angiogram significant for filling deficits within the lower lobes bilaterally suggesting small bilateral pulmonary emboli Echo pending Heparin drip Hematology consulted as patient with multiple PEs despite Coumadin therapy Not currently requiring supplemental oxygen 2. CHF exacerbation BNP 1081 IV Lasix 3. Diabetes mellitus Holding home metformin Sliding-scale insulin Monitor blood glucose 4. Coronary artery disease/hypertension/hyperlipidemia Continue home medication FEN Cardiac diet Electrolytes: Monitor and replete as needed Heparin drip
[2018-09-07] MEDS: Insulin NovoLOG Aspart Correctional Sugar Inj SQ SCH ×5 (03:46→20:17)
[2018-09-07 05:05] LABS: Baso % (Auto) 0.8 % (0.0-2.0); Eos # (Auto) 0.1 th/mm3 (0.0-0.4); Eos % (Auto) 2.9 % (0.0-4.0); Hematocrit 33.6 % (39.0-51.0); Hemoglobin 11.1 gm/dL (13.0-17.0); Lymph # (Auto) 0.7 th/mm3 (1.0-4.8); Lymph % (Auto) 14.9 % (9.0-44.0); Mean Corpuscular HGB Conc 33.1 % (32.0-36.0); Mean Corpuscular Hemoglobin 31.3 pg (27.0-34.0); Mean Corpuscular Volume 94.7 fL (80.0-100.0); Mean Platelet Volume 7.8 fL (7.0-11.0); Mono # (Auto) 0.7 th/mm3 (0.0-0.9); Neut # (Auto) 3.3 th/mm3 (1.8-7.7); Neut % (Auto) 67.4 % (16.0-70.0); Platelet Count 175 th/mm3 (150-450); Red Blood Count 3.55 mil/mm3 (4.50-5.90); Red Cell Distribution Width 20.3 % (11.6-17.2); White Blood Count 4.9 th/mm3 (4.0-11.0)
[2018-09-07 05:23] LABS: Calcium 8.3 mg/dL (8.5-10.1); Carbon Dioxide 28.6 meq/L (21.0-32.0)
[2018-09-07] MEDS: Metoprolol Tartrate 25 MG Tablet PO SCH ×2 (08:32→20:16)
[2018-09-07] MEDS: Senna/Docusate Sodium 8.6/50 MG Tablet PO SCH ×2 (08:32→20:17)
--- NOTE | 2018-09-07 09:15 | ECHRPT ---
Indication: PE CONCLUSIONS Technically difficult study. Mildly dilated left ventricle. The left ventricular systolic function is jnxgxgck-ni-ylbbhcy reduced with an estimated ejection fra ction in the range of 35-40%. The right ventricular systoilc function is moderately decreased, but free wall appears to move. Mild mitral valve regurgitation. Aortic valve prosthesis not well visualized Atleast mild aortic valve regurgitation, which appears to be paravalvular A moderate left sided pleural effusion is noted. BP: / HR: Rhythm: MEASUREMENTS (Male / Female) Normal Values Technical Quality:Technically difficult study 2D ECHO LV Diastolic Diameter PLAX 5.7 cm 4.2 - 5.9 / 3.9 - 5.3 cm IVS Diastolic Thickness 1.1 cm 0.6 - 1.0 / 0.6 - 0.9 cm LVPW Diastolic Thickness 1.0 cm 0.6 - 1.0 / 0.6 - 0.9 cm LV Relative Wall Thickness 0.4 RV Internal Dim ED PLAX 2.6 cm LA Systolic Diameter LX 4.8 cm 3.0 - 4.0 / 2.7 - 3.8 cm DOPPLER AV Peak Velocity 229.0 cm/s AV Peak Gradient 21.0 mmHg Mitral E Point Velocity 139.0 cm/s TR Peak Velocity 269.0 cm/s TR Peak Gradient 28.9 mmHg FINDINGS LEFT VENTRICLE Mildly dilated left ventricle. Wall thickness is normal. The left ventricular systolic function is jvynwbxc-fl-asjeiju reduced with an estimated ejection fra ction in the range of 35-40%. RIGHT VENTRICLE The right ventricle was not well visualized. The right ventricular size is normal. The right ventricular systoilc function is moderately decreased, but free wall appears to move. LEFT ATRIUM The left atrial size is mildly dilated. RIGHT ATRIUM The right atrial size is normal. ATRIAL SEPTUM Normal atrial septal thickness. AORTA The aortic root and proximal ascending aorta are normal in size on limited imaging. MITRAL VALVE Structurally normal mitral valve. Mild mitral annular calcification. No mitral valve stenosis. Mild mitral valve regurgitation. AORTIC VALVE Aortic valve prosthesis not well visualized Atleast mild aortic valve regurgitation, which appears to be paravalvular TRICUSPID VALVE Grossly normal There is trace tricuspid valve regurgitation. The estimated pulmonary arterial pressure is 35 mmHg. PULMONARY VALVE The pulmonary valve is not well visualized. VESSELS The inferior vena cava is normal in size. PERICARDIUM A moderate left sided pleural effusion is noted. Oswaldo Delgado DO (Electronically Signed) Final Date:07 September 2018 09:14
[2018-09-07 09:37] LABS: INR 1.9 Ratio; Prothrombin Time 19.3 sec (9.8-11.6)
--- NOTE | 2018-09-07 09:47 | P.PN ---
Subjective Interval history: Admission Notes: 78-year-old male past medical history of PE x3 anticoagulated on Coumadin, aortic valve replacement, hypertension, hyperlipidemia, diabetes mellitus, CHF ( last EF 45-50%) and CAD status post stent x5 presents to the emergency department for evaluation of shortness of breath since Wednesday. The patient also endorses an accompanying cough productive of clear mucus. He denies any fever/chills. INR was 2.0. The patient denies any associated chest pain. No abdominal pain. No nausea/vomiting/diarrhea. No lateralizing signs/symptoms. CTA significant for small bilateral lower lobe pulmonary emboli. 09/07: Stable seen with nurse he has Aortic Stenosis, CHF, CAD, Hyperlipidemia, Hypertension, Leukemia, pacemaker, PE, discussed on two Opportunities first face to face and then through the Phone with Hematology and chemistry specialist Doctor Ken Wells he evaluated the imaging studies with radiology administrator and is not convinced about the patient new Pulmonary Emboli he thinks this is an old process. but will continue Heparin drip and remove once INR in 2.5. continue Warfarin. Physical Exam Vital signs: Vital Signs 09/06/18 17:52 09/06/18 18:23 09/06/18 19:51 Temperature 98.5 F Pulse Rate 72 84 Respiratory Rate 18 18 Blood Pressure 145/66 H 166/79 H Pulse Oximetry 96 98 95 09/06/18 21:58 09/07/18 00:00 09/07/18 03:34 Temperature 97.7 F 97.4 F L Pulse Rate 96 H 87 90 Respiratory Rate 18 18 18 Blood Pressure 115/92 H 158/88 H 171/79 H Pulse Oximetry 95 97 96 09/07/18 04:00 09/07/18 07:34 Temperature 97.4 F L Pulse Rate 90 104 H Respiratory Rate 18 Blood Pressure 171/79 H Pulse Oximetry 96 Intake & Output 09/06/18 09/07/18 09/07/18 18:59 06:59 18:59 Intake Total 480 / 480 Output Total 1100 / 1100 Balance -620 / -620 Weight 145.15 kg 133 kg Intake: Oral 480 / 480 Output: Urine 1100 / 1100 Other: # Voids 2 Narrative: Gen.: No acute distress, obesity Head: Normocephalic. Atraumatic. EENT: Pupils equal round and reactive to light. Nose without drainage. Airway intact. Throat without injection. Cardiovascular: Regular rate and rhythm. No murmurs, rubs or gallops. Respiratory: Lungs clear to auscultation bilaterally. No wheezes or rhonchi. Abdomen: Soft, nontender, nondistended. No peritoneal signs. Musculoskeletal: bilateral, Lymphedema with chronic trophic changes. Skin: No obvious rashes or erythema. Neuro: Sensory and motor grossly intact. Cranial nerves II through XII grossly intact. Results - Labs CBC & Chem 7: 09/07/18 04:43 09/07/18 04:43 Laboratory Results - last 24 hr 09/06/18 09/06/18 09/06/18 18:05 18:05 18:05 WBC 5.9 RBC 3.77 L Hgb 11.6 L Hct 34.9 L MCV 92.5 MCH 30.9 MCHC 33.4 RDW 20.8 H Plt Count 207 MPV 7.9 Neut % (Auto) 70.8 H Lymph % (Auto) 12.7 [place] % (Auto) 13.4 H Eos % (Auto) 2.3 Baso % (Auto) 0.8 Neut # (Auto) 4.2 Lymph # (Auto) 0.7 L [place] # (Auto) 0.8 Eos # (Auto) 0.1 Baso # (Auto) 0.0 WBC Differential . Differential Comment Auto diff final PT INR APTT Sodium 137 Potassium 4.6 Chloride 106 Carbon Dioxide 23.9 Anion Gap 7 BUN 20 H Creatinine 1.03 Estimated GFR 70 L POC Glucose Random Glucose 109 H Calcium 8.8 Total Bilirubin 0.7 AST 19 ALT 19 Alkaline Phosphatase 127 H Troponin I Less than 0.02 L B-Natriuretic Peptide 1081 H Total Protein 6.8 Albumin 3.3 L 09/06/18 09/07/18 09/07/18 18:05 03:32 04:43 WBC RBC Hgb Hct MCV MCH MCHC RDW Plt Count MPV Neut % (Auto) Lymph % (Auto) [place] % (Auto) Eos % (Auto) Baso % (Auto) Neut # (Auto) Lymph # (Auto) [place] # (Auto) Eos # (Auto) Baso # (Auto) WBC Differential Differential Comment PT 20.1 H INR 2.0 APTT 38.0 H 106.7 H* D Sodium Potassium Chloride Carbon Dioxide Anion Gap BUN Creatinine Estimated GFR POC Glucose 127 H Random Glucose Calcium Total Bilirubin AST ALT Alkaline Phosphatase Troponin I B-Natriuretic Peptide Total Protein Albumin 09/07/18 09/07/18 09/07/18 04:43 04:43 07:20 WBC 4.9 RBC 3.55 L Hgb 11.1 L Hct 33.6 L MCV 94.7 MCH 31.3 MCHC 33.1 RDW 20.3 H Plt Count 175 MPV 7.8 Neut % (Auto) 67.4 Lymph % (Auto) 14.9 [place] % (Auto) 14.0 H Eos % (Auto) 2.9 Baso % (Auto) 0.8 Neut # (Auto) 3.3 Lymph # (Auto) 0.7 L [place] # (Auto) 0.7 Eos # (Auto) 0.1 Baso # (Auto) 0.0 WBC Differential . Differential Comment Auto diff final PT INR APTT 113.7 H* Sodium 142 Potassium 4.0 Chloride 106 Carbon Dioxide 28.6 Anion Gap 7 BUN 17 Creatinine 0.93 Estimated GFR 78 L POC Glucose Random Glucose 114 H Calcium 8.3 L Total Bilirubin AST ALT Alkaline Phosphatase Troponin I B-Natriuretic Peptide Total Protein Albumin 09/07/18 09/07/18 08:07 09:01 WBC RBC Hgb Hct MCV MCH MCHC RDW Plt Count MPV Neut % (Auto) Lymph % (Auto) [place] % (Auto) Eos % (Auto) Baso % (Auto) Neut # (Auto) Lymph # (Auto) [place] # (Auto) Eos # (Auto) Baso # (Auto) WBC Differential Differential Comment PT 19.3 H INR 1.9 APTT Sodium Potassium Chloride Carbon Dioxide Anion Gap BUN Creatinine Estimated GFR POC Glucose 116 H Random Glucose Calcium Total Bilirubin AST ALT Alkaline Phosphatase Troponin I B-Natriuretic Peptide Total Protein Albumin - Imaging Impressions Venous Doppler Study 09/06/18 17:51 CONCLUSION: 1. The study is negative for bilateral lower extremity deep venous thrombosis. Chest X-Ray 09/06/18 17:52 CONCLUSION: Bibasilar areas of consolidation or atelectasis being worse on the right with a suspected right effusion. Chest CTA 09/06/18 17:53 CONCLUSION: 1. Filling defects within the lower lobes bilaterally suggesting small bilateral pulmonary emboli. 2. Moderate right and small left pleural effusion. 3. Bibasilar consolidation likely atelectasis. 4. Coronary artery calcifications. 5. Aortic valve replacement. Assessment and Plan - Plan 1. Bilateral PE Pulmonary angiogram significant for filling deficits within the lower lobes bilaterally suggesting small bilateral pulmonary emboli Echo pending Heparin drip, discussed on with Hematology and chemistry specialist Doctor Ken Wells he evaluated the imaging studies with radiology administrator and is not convinced about the patient new Pulmonary Emboli he thinks this is an old process. but will continue Heparin drip and remove once INR in 2.5. continue Warfarin. Negative bilateral leg US. 2. CHF exacerbation. continue Lasix from home and follow Echocardiogram once in chart. BNP 1081 IV Lasix 3. Diabetes mellitus Holding home metformin Sliding-scale insulin Monitor blood glucose 4. Coronary artery disease/hypertension/hyperlipidemia Continue home medication 5. Aortic Stenosis by history 6. Status post Pacemaker placement 7. morbid obesity strongly recommended diet and exercise as outpatient. FEN Cardiac diet Electrolytes: Monitor and replete as needed Heparin drip Warfarin started Warfarin consult pharmacy lead project manager and PT evaluation for discharge. Code Status: Full Code. Discussed Condition With: patient, nurse Miss Lee and Hematology and chemistry specialist Doctor Ken Wells appreciated input and recommendations. Discharge Planning: once cleared by personal injury specialist.
--- NOTE | 2018-09-07 10:47 | ECG ---
Date Performed: 09/06/2018 Time Performed: 17:52:18 PTAGE: 78 years EKG: probable atrial fibrillation ELECTRONIC VENTRICULAR PACEMAKER -- CONTOUR ANALYSIS BASED ON INTRINSIC RHYTHM INTRAVENTRICULAR CONDUCTION DELAY ABNORMAL ECG PREVIOUS TRACING : 12/17/2017 23.45 DOCTOR: Celso Stapleton Interpretating Date/Time 09/07/2018 10:45:44
[2018-09-07] MEDS ORDERED: Potassium Chloride 25 MEQ Effervescent Tablet PO ONE ×2 (10:51→13:00)
[2018-09-07] MEDS ORDERED: Sodium Chlor 0.9% Inj 250 ML IV.SIG SCH ×2 (11:00)
[2018-09-07] MEDS ORDERED: Acetaminophen 325 MG Tablet PO ONE (11:00)
[2018-09-07 11:08] LABS: D-Dimer 0.88 mg/L FEU (0.00-0.50)
--- NOTE | 2018-09-07 16:30 | MB ---
cc: Russell Rogers MD DATE: 09/07/2018 REQUESTING PHYSICIAN: Marta Doran MD REASON FOR CONSULTATION: Evaluation of recurrent PE in a gentleman who is on Coumadin with PT/INR of 2.0. HISTORY OF PRESENT ILLNESS: Mr. Kaye is a 78-year-old gentleman with a history of multiple cardiopulmonary problems including multiple PEs in the past and history of DVT after a left lower extremity surgery. He has been on long-term Coumadin therapy and PT/INR has been 2.0 with daily Coumadin dose of 5 mg. He was admitted to the hospital with shortness of breath of 4 days' duration, accompanied by cough with whitish expectoration and no hemoptysis. I was asked to evaluate him as his CTA showed bilateral lower lobe pulmonary emboli and there was no prior CT for comparison. The patient was interviewed extensively and his available records are reviewed. Case was discussed with his charge attendant, Dr. Posey, and also CT reviewed with radiologist. REVIEW OF SYSTEMS: No headaches, motor or sensory symptoms. No blurring of vision. No fevers, night sweats, or weight loss. No abdominal pain, distention, blood in stool or black stools. No frequency, urgency or hematuria. PAST MEDICAL HISTORY: Long and complicated with hypertension, hyperlipidemia, diabetes, coronary artery disease, CHF, coronary stents x 5, and aortic valve replacement on long-term Coumadin. He also appears to have had a DVT filter placed in the past. No history of known hypercoagulable disorder. PAST SURGICAL HISTORY: Other surgeries include left knee replacement and pacemaker placement. SOCIAL HISTORY: Nonsmoker, non-alcohol abuser. No occupational exposure to chemicals or radiation. FAMILY HISTORY: Noncontributory. PHYSICAL EXAMINATION: GENERAL: This is an obese, middle-aged gentleman, appearing chronically ill, in no acute distress. VITAL SIGNS: Stable. He is afebrile. Pallor present. No icterus. No palpable adenopathy in the neck, axilla or groins. HEENT: Without oropharyngeal lesions, no gum bleeding or hypertrophy. Alert and oriented x 4. CARDIOVASCULAR: S1, S2. Irregularly irregular. Grade 2-3 systolic murmur, without rubs or gallops. Left chest with pacemaker in place. LUNGS: Bilaterally with decreased air entry to the bases, but no wheezes or crackles. ABDOMEN: Obese, distended, soft and nontender without palpable organomegaly. EXTREMITIES: With chronic lymphedema with no calf tenderness. No evidence of DVTs. No petechia or ecchymosis or bruises. LABORATORY DATA: His PT/INR is 2.0, hemoglobin 11.1, platelets 175 and white count 4.9. Fibrinogen 421. D-dimer 0.88. CTA reviewed with the radiologist. The patient did not have a prior CTA for comparison and prior CT chest did not have the angiographic details that would eliminate a PE on that CT scan done in November of this year. Echocardiogram reviewed. IMPRESSION: This is a 78-year-old gentleman with history of left lower extremity DVT after knee surgery followed by pulmonary emboli and SVC filter placement. Currently has shortness of breath, which could be multifactorial etiology including CHF with decreasing ejection fraction, which decreased from 50% earlier this year to 35% at this time and the possibility of a recurrent PE is considered, but per discussion with radiologist and also from the fact that he has an IVC filter and has been therapeutic PT/INR, it appears unlikely at this point that the CT angiogram findings of bilateral lower lobe pulmonary emboli is new at this time. He is currently on heparin and hence, I would recommend reinstituting Coumadin therapy with an INR of approximately 2.5, as his bilateral lower extremity Doppler ultrasounds are negative and he has an IVC filter in place. At this point, I do not consider these as new pulmonary emboli, but would recommend a followup evaluation with a CT angiogram in 2-3 days to see if there is any progression of these emboli. If that happens, that could be considered as certain progression in the face of therapeutic Coumadin levels. At that point, he will need to be on newer anticoagulants. I have discussed these issues with hospitalist, Dr. Tovar, and I will be happy to follow along with you. MD JUAN Rubio/martha , 04:03 PM , 04:16 PM
[2018-09-07] MEDS ORDERED: Warfarin Consult Pharmacy OTHER PRN (17:00)
[2018-09-07] MEDS ORDERED: Furosemide 40 MG Tablet PO SCH (17:00)
[2018-09-08] MEDS: Insulin NovoLOG Aspart Correctional Sugar Inj SQ SCH ×5 (03:11→23:59)
[2018-09-08 05:57] LABS: Hematocrit 34.2 % (39.0-51.0); Hemoglobin 11.3 gm/dL (13.0-17.0); Mean Corpuscular HGB Conc 33.1 % (32.0-36.0); Mean Corpuscular Hemoglobin 31.2 pg (27.0-34.0); Mean Corpuscular Volume 94.1 fL (80.0-100.0); Mean Platelet Volume 8.1 fL (7.0-11.0); Platelet Count 182 th/mm3 (150-450); Red Blood Count 3.63 mil/mm3 (4.50-5.90); Red Cell Distribution Width 20.4 % (11.6-17.2); White Blood Count 4.9 th/mm3 (4.0-11.0)
[2018-09-08 08:14] LABS: Prothrombin Time 19.8 sec (9.8-11.6)
[2018-09-08] MEDS: Senna/Docusate Sodium 8.6/50 MG Tablet PO SCH ×2 (08:28→21:55)
[2018-09-08] MEDS: Metoprolol Tartrate 25 MG Tablet PO SCH ×2 (08:30→21:55)
--- NOTE | 2018-09-08 10:54 | P.PNONC ---
Subjective Interval history: Patient sitting in chair. Reports intermittent shortness of breath. Currently denies any shortness of breath O2 sat 98% on room air. Reports occasional cough in which he feels like he needs to bring up mucus. Was on an expectorant at home which worked well. Requests expectorant. Continues on heparin drip and warfarin, INR today 2.0. Denies any bleeding. Objective Vital Signs/Intake & Output: Vital Signs 09/07/18 12:00 09/07/18 14:58 09/07/18 17:20 Temperature 98.3 F 98.2 F Pulse Rate 83 73 Respiratory Rate 18 16 Blood Pressure 159/86 H 175/94 H Pulse Oximetry 96 98 95 09/07/18 19:00 09/07/18 20:00 09/07/18 23:00 Temperature 98.6 F 98.6 F Pulse Rate 93 H 116 H 107 H Respiratory Rate 18 14 Blood Pressure 140/69 154/91 H Pulse Oximetry 97 97 96 09/08/18 03:00 09/08/18 07:00 09/08/18 08:25 Temperature 98.4 F 97.7 F Pulse Rate 83 89 Respiratory Rate 16 16 Blood Pressure 160/81 H 141/75 H Pulse Oximetry 98 93 L 98 Intake & Output 09/07/18 09/08/18 09/08/18 18:59 06:59 18:59 Intake Total 530 / 530 680 / 680 Output Total 300 / 300 1999 Balance 230 / 230 -1320 / -1320 Weight 133 kg Intake: IV 50 / 50 Heparin/D5W 25,000 U/250 mL 25, 50 / 50 000 unit In 250 ml @ Per Protocol IV.CONT TITRATE PRN Rx #:[id number] Oral 480 / 480 680 / 680 Output: Urine 300 / 300 1999 Other: Date of Last Bowel Movement 09/05/18 Result Diagrams: 09/08/18 05:02 09/07/18 04:43 Laboratory Results: Laboratory Results - last 24 hr 09/07/18 09/07/18 09/07/18 09:01 09:01 11:04 WBC RBC Hgb Hct MCV MCH MCHC RDW Plt Count MPV PT INR APTT 78.7 H D Fibrinogen 421 H D-Dimer Quant (PE/DVT) 0.88 H POC Glucose Blood Type A Positive Antibody Screen Negative 10/09/1509/07/18 09/07/18 12:02 16:32 20:08 WBC RBC Hgb Hct MCV MCH MCHC RDW Plt Count MPV PT INR APTT Fibrinogen D-Dimer Quant (PE/DVT) POC Glucose 130 H 110 142 H Blood Type Antibody Screen 09/07/18 09/08/18 09/08/18 23:13 03:07 05:02 WBC 4.9 RBC 3.63 L Hgb 11.3 L Hct 34.2 L MCV 94.1 MCH 31.2 MCHC 33.1 RDW 20.4 H Plt Count 182 MPV 8.1 PT INR APTT 50.7 H D Fibrinogen D-Dimer Quant (PE/DVT) POC Glucose 134 H Blood Type Antibody Screen 09/08/18 09/08/18 09/08/18 05:02 05:02 07:39 WBC RBC Hgb Hct MCV MCH MCHC RDW Plt Count MPV PT 19.8 H INR 2.0 APTT 50.6 H Fibrinogen D-Dimer Quant (PE/DVT) POC Glucose 125 H Blood Type Antibody Screen Medications: Active Medications Generic Name Dose Route Start Last Admin Trade Name Freq PRN Reason Stop Dose Admin Aspirin 81 mg 09/07/18 09:00 09/08/18 08:29 Aspirin Chew PO 81 mg DAILY MICHAEL Administration Clonidine HCl 0.1 mg 09/07/18 16:06 09/07/18 16:35 Catapres PO 0.1 mg Q6H PRN Administration HYPERTENSION Furosemide 40 mg 09/07/18 09:00 09/08/18 08:33 Lasix Inj IV.PUSH 40 mg BID@0900,1800 MICHAEL Administration Heparin Sodium/Dextrose 25,000 unit in 250 mls @ 0 mls/hr 09/06/18 20:39 10/16 06:35 Heparin/D5w 25,000 U/250 Ml IV.CONT 1,000 units/hr TITRATE PRN 10 mls/hr Per Protocol Titration Protocol Per Protocol Insulin Aspart 0 unit 09/07/18 03:00 09/08/18 08:29 Novolog Insulin Correctional Sugar Inj SQ Not Given ACHS AND 3AM MICHAEL Protocol Losartan Potassium 100 mg 09/07/18 09:00 09/08/18 08:29 Cozaar PO 100 mg DAILY MICHAEL Administration Metoprolol Tartrate 25 mg 09/07/18 09:00 09/08/18 08:30 Lopressor PO 25 mg BID MICHAEL Administration Oxycodone HCl 10 mg 09/07/18 10:47 09/08/18 08:29 Roxicodone PO 10 mg Q8H PRN Administration PAIN SCALE 6 TO 10 Pravastatin Sodium 40 mg 09/07/18 09:00 09/08/18 08:28 Pravachol PO 40 mg DAILY MICHAEL Administration Senna/Docusate Sodium 1 tab 09/07/18 09:00 09/08/18 08:28 Toya-Colace PO 1 tab BID MICHAEL Administration Warfarin Sodium 5 mg 09/07/18 18:00 09/07/18 18:03 Coumadin PO 5 mg DAILY@1600 MICHAEL Administration Objective Remarks: GENERAL: Well-nourished, well-developed obese male patient, sitting in chair, in no acute distress. SKIN: Warm and dry. Ecchymotic spots to bilateral forearms. HEAD: Normocephalic. EYES: No scleral icterus. No injection or drainage. NECK: Supple, trachea midline. CARDIOVASCULAR: Regular rate and rhythm 2/6 systolic murmur in aortic listening area. RESPIRATORY: Breath sounds equal bilaterally. Nonlabored at rest. On room air GASTROINTESTINAL: Abdomen large hard, non-tender, nondistended. EXTREMITIES: No cyanosis. Chronic venous stasis, dry scaly bilateral lower extremities. MUSCULOSKELETAL: Adequate muscle tone. NEUROLOGICAL: No obvious focal deficit. Awake, alert, and oriented x3. PSYCHIATRIC: Appropriate mood and affect; insight and judgment normal. 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 He has been on long-term Coumadin anticoagulation and has an IVC filter in place. CTA Showed filling defects within the lower lobes bilaterally suggesting small bilateral pulmonary emboli. Moderate right and small left pleural effusions. Bibasilar consolidation likely atelectasis. Coronary artery calcifications. An aortic valve replacement. Patient was placed on a heparin drip and hematology was consulted for pulmonary embolisms while on therapeutic anticoagulation. Plan: 1. Possible bilateral pulmonary embolisms. Dr. Connor discussed with radiologist and feels these may be residual old PEs. Patient had therapeutic INR and ultrasound of lower extremities was negative for DVTs. Recommendations to repeat CTA in 2-3 days to see if there is any changes have been made. The patient remains on heparin drip and has been restarted on Coumadin. His INR today is 2.0. Goal INR is 2.5. 2. Plan to repeat CTA in 2-3 days. If the pulmonary embolisms appear to be new and changing the patient will be switched from Coumadin to a NOAC. If stable he will remain on Coumadin with goal to keep INR above 2.5. 3. Continue heparin drip. Continue to monitor daily INR. Continue to monitor for bleeding. 4. We will start Robitussin expectorant at patient's request. - Attending Statement Pt seen in Rm [id number] and I had a detailed discussion with him regarding the fact that in view of his IVC filter and lack of PE protocol for the prior CT chest of 11/2017, it is recommended that he have a repeat CTA to evaluate stability vs progression of bilateral lower lobe PEs seen on the most recent CTA. Until then he will continue on coumadin +/- Heparin depending on the INR If there is progression of PEs on the next CTA to be ordered for tomorrow, he will need to be on NOACs. Case discussed with pt's boy's adviser, Dr. Shaikh and 2D echos reviewed. Will follow up.
--- NOTE | 2018-09-08 14:26 | P.PNIM ---
Subjective Interval history: Patient reports he is feeling better. He is less short of breath. Stable on room air. He denies chest pain. Physical Exam Vital signs: Vital Signs 09/07/18 14:58 09/07/18 17:20 09/07/18 19:00 Temperature 98.2 F 98.6 F Pulse Rate 73 93 H Respiratory Rate 16 18 Blood Pressure 175/94 H 140/69 Pulse Oximetry 98 95 97 09/07/18 20:00 09/07/18 23:00 09/08/18 03:00 Temperature 98.6 F 98.4 F Pulse Rate 116 H 107 H 83 Respiratory Rate 14 16 Blood Pressure 154/91 H 160/81 H Pulse Oximetry 97 96 98 09/08/18 07:00 09/08/18 08:25 09/08/18 11:00 Temperature 97.7 F 98.1 F Pulse Rate 89 70 Respiratory Rate 16 17 Blood Pressure 141/75 H 131/67 Pulse Oximetry 93 L 98 95 Intake & Output 09/07/18 09/08/18 09/08/18 18:59 06:59 18:59 Intake Total 530 / 530 680 / 680 Output Total 300 / 300 1999 Balance 230 / 230 -1320 / -1320 Weight 133 kg Intake: IV 50 / 50 Heparin/D5W 25,000 U/250 mL 25, 50 / 50 000 unit In 250 ml @ Per Protocol IV.CONT TITRATE PRN Rx #:[id number] Oral 480 / 480 680 / 680 Output: Urine 300 / 300 1999 Other: Date of Last Bowel Movement 09/05/18 Narrative: GENERAL: This is a well-nourished, well-developed patient, in no apparent distress. CARDIOVASCULAR: Normal rate and regular rhythm without murmurs, gallops, or rubs. RESPIRATORY: Good respiratory efforts. Breath sounds equal and clear to auscultation bilaterally. GASTROINTESTINAL: Abdomen soft, non-tender, non-distended. Normal active bowel sounds MUSCULOSKELETAL: Bilateral lower extremity lymphedema with chronic scaling NEURO: Alert & Oriented x4 to person, place, time, situation. Moves all ext x4 PSYCH: Appropriate mood and affect. Results - Labs CBC & Chem 7: 09/08/18 05:02 09/07/18 04:43 Laboratory Results - last 24 hr 09/07/18 09/07/18 09/07/18 16:32 20:08 23:13 WBC RBC Hgb Hct MCV MCH MCHC RDW Plt Count MPV PT INR APTT 50.7 H D POC Glucose 110 142 H 09/08/18 09/08/18 09/08/18 03:07 05:02 05:02 WBC 4.9 RBC 3.63 L Hgb 11.3 L Hct 34.2 L MCV 94.1 MCH 31.2 MCHC 33.1 RDW 20.4 H Plt Count 182 MPV 8.1 PT INR APTT 50.6 H POC Glucose 134 H 09/08/18 09/08/18 09/08/18 05:02 07:39 11:11 WBC RBC Hgb Hct MCV MCH MCHC RDW Plt Count MPV PT 19.8 H INR 2.0 APTT POC Glucose 125 H 145 H Assessment and Plan - Plan 78-year-old male with history of PE, Systolic CHF presented with acute shortness of breath. Acute systolic CHF: EF decreased to 35-40% compared to his last echo. - Continue IV Lasix, beta-chung, DELMY inhibitor. Bilateral pulmonary embolism: Appreciate input from hematology/oncologist Dr. Rogers. Per his discussion with the radiologist, the pulmonary emboli does not appear to be new. - Current plan is to continue the patient on heparin drip and discontinue once INR is 2.5. He will have a repeat CTA tomorrow and if there is progression, a newer oral anticoagulant agent will be considered. Diabetes mellitus Holding home metformin Sliding-scale insulin Monitor blood glucose Coronary artery disease/hypertension/hyperlipidemia Continue home medication Aortic Stenosis by history/Status post Pacemaker placement -Advised outpatient follow-up with cardiology. Discharge Planning: Pending further workup. He should be able to return home.
[2018-09-08] MEDS: Heparin Drip 25,000 UNIT/250 ML BAG IV.CONT PRN (15:09)
[2018-09-09] MEDS: Insulin NovoLOG Aspart Correctional Sugar Inj SQ SCH ×5 (02:58→23:18)
[2018-09-09 05:46] LABS: Hematocrit 33.9 % (39.0-51.0); Hemoglobin 11.2 gm/dL (13.0-17.0); Mean Corpuscular Hemoglobin 30.9 pg (27.0-34.0); Mean Corpuscular Volume 93.6 fL (80.0-100.0); Platelet Count 179 th/mm3 (150-450); Red Blood Count 3.62 mil/mm3 (4.50-5.90); Red Cell Distribution Width 19.9 % (11.6-17.2); White Blood Count 4.5 th/mm3 (4.0-11.0)
[2018-09-09 05:50] LABS: Activated Partial Thrombo Time 56.3 sec (24.3-30.1); INR 1.8 Ratio; Prothrombin Time 18.1 sec (9.8-11.6)
[2018-09-09 06:00] LABS: Carbon Dioxide 29.2 meq/L (21.0-32.0); Potassium 3.7 meq/L (3.5-5.1)
[2018-09-09] MEDS: Metoprolol Tartrate 25 MG Tablet PO SCH ×2 (08:35→23:16)
[2018-09-09] MEDS: Senna/Docusate Sodium 8.6/50 MG Tablet PO SCH ×2 (08:35→23:17)
--- NOTE | 2018-09-09 12:14 | CT ---
EXAM DATE: 09/09/2018 11:24 AM EDT AGE/SEX: 78 years / Male INDICATIONS: Pulmonary Embolism CLINICAL DATA: This is the patient's subsequent encounter. Patient reports that signs and symptoms h ave been present for 3 days and indicates a pain score of 2/10. MEDICAL/SURGICAL HISTORY: Chronic obstructive pulmonary disease. Hypertension. Leukemia. Pulmona ry embolism, Prediabetic, Aortic Stenosis . Aortic valve replaced, Coronary angioplasty, Pacemaker RADIATION DOSE: 33.01 CTDI (mGy) COMPARISON: [facility], CTA PULMONARY W CONTRAST W 3D, 09/06/2018. . TECHNIQUE: Volumetric scanning was performed using a multi-row detector CT scanner during bolus infu marybeth of 73ML ml Omnipaque 350 (iohexol) nonionic water-soluble contrast as a single exam dose. The d duke was post processed with a variety of visualization algorithms including full volume maximum inten sity projection and sliding thin slab reformation. Using automated exposure control and adjustment of the mA and/or kV according to patient size, radiation dose was kept as low as reasonably achievable to obtain optimal diagnostic quality images. DICOM format image data is available electronically for review and comparison. FINDINGS: The study is degraded by breathing motion artifact. Pulmonary Arteries: The segmental and subsegmental branches are limited in their evaluation due to t he motion artifact. There is a small linear filling defect involving the interlobar pulmonary artery on the right. This is stable from the prior exam. No other filling defects are observed. In particula r, no large central pulmonary emboli.. Lung: Passive atelectasis associated with the effusions. No discrete infiltrates.. Effusion: Small bilateral pleural effusions are posteriorly layering. These are unchanged.. Mediastinum: The heart is mildly enlarged without pericardial effusion. Stent-mounted aortic valve n oted. Significant coronary artery atherosclerotic calcifications are observed. No mass or adenopathy. Aorta is normal in caliber.. Other: The axilla is unremarkable. CONCLUSION: 1. Breathing motion artifact degrades the study somewhat. 2. Tiny solitary linear filling defect involving the interlobar pulmonary artery and the right is un changed in the prior exam. This appearance is more suggestive of chronic clot. No acute filling defec ts observed on the current study. 3. Cardiomegaly. 4. Bilateral pleural effusions with passive atelectasis. Electronically signed by: Dave Powers MD 09/09/2018 12:13 PM EDT
--- NOTE | 2018-09-09 16:04 | MH ---
cc: Russell Rogers MD DATE OF ADMISSION: 09/06/2018 HISTORY OF PRESENT ILLNESS: Mr. Kaye is seen in room 242 in followup. He had his repeat V/Q scan and results are pending. He feels much more comfortable and his is at his bedside and he wants to go home soon. He has been on heparin and Coumadin and has no evidence of active bleeding. The patient was examined today. I reviewed his treatment plan with him and his . IMPRESSION: History of DVTs and pulmonary emboli, status post IVC filter. 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 This will be confirmed on today's V/Q scan. If there is evidence of progression of the recent pulmonary emboli, then he would need to be put on Eliquis or Pradaxa, but if the CTA shows that these blood clots in the lungs are old or chronic, he would certainly be able to continue Coumadin and follow up with his primary physician. This was rediscussed with the patient and his and also with the hospitalist team. Russell Rogers MD MVA/sb , 03:31 PM , 03:39 PM
[2018-09-09] MEDS: Heparin Drip 25,000 UNIT/250 ML BAG IV.CONT PRN (16:46)
--- NOTE | 2018-09-09 16:52 | P.PNIM ---
Subjective Interval history: Patient reports is feeling okay. Still gets mild shortness of breath when laying down. No chest pain. Physical Exam Vital signs: Vital Signs 09/08/18 19:00 09/08/18 20:00 09/08/18 23:00 Temperature 97.7 F Pulse Rate 116 H 62 Respiratory Rate 20 16 Blood Pressure 186/84 H 140/71 Pulse Oximetry 96 98 94 L 09/09/18 02:57 09/09/18 03:00 09/09/18 10:18 Temperature Pulse Rate 60 Respiratory Rate 16 20 Blood Pressure 140/71 Pulse Oximetry 93 L 93 L Intake & Output 09/08/18 09/09/18 09/09/18 18:59 06:59 18:59 Intake Total 800 / 800 240 / 240 Output Total 650 / 650 1625 / 1625 Balance 150 / 150 -1385 / -1385 Weight 133.3 kg Intake: IV 200 / 200 Heparin/D5W 25,000 U/250 mL 25, 200 / 200 000 unit In 250 ml @ Per Protocol IV.CONT TITRATE PRN Rx #:[id number] Oral 600 / 600 240 / 240 Output: Urine 650 / 650 1625 / 1625 Other: Date of Last Bowel Movement 09/05/18 Narrative: GENERAL: This is a well-nourished, well-developed patient, in no apparent distress. CARDIOVASCULAR: Normal rate and regular rhythm without murmurs, gallops, or rubs. RESPIRATORY: Good respiratory efforts. Diminished breath sounds bilateral at the bases, otherwise clear to auscultation bilaterally GASTROINTESTINAL: Abdomen soft, non-tender, non-distended. Normal active bowel sounds MUSCULOSKELETAL: Bilateral lower extremity lymphedema with chronic scaling NEURO: Alert & Oriented x4 to person, place, time, situation. Moves all ext x4 PSYCH: Appropriate mood and affect. Results - Labs CBC & Chem 7: 09/09/18 04:57 09/09/18 04:57 Laboratory Results - last 24 hr 09/08/18 09/08/18 09/09/18 17:01 21:57 04:57 WBC 4.5 RBC 3.62 L Hgb 11.2 L Hct 33.9 L MCV 93.6 MCH 30.9 MCHC 33.0 RDW 19.9 H Plt Count 179 MPV 8.0 PT INR APTT Sodium Potassium Chloride Carbon Dioxide Anion Gap BUN Creatinine Estimated GFR POC Glucose 128 H 127 H Random Glucose Calcium 09/09/18 09/09/18 09/09/18 04:57 05:20 08:33 WBC RBC Hgb Hct MCV MCH MCHC RDW Plt Count MPV PT 18.1 H INR 1.8 APTT 56.3 H Sodium 142 Potassium 3.7 Chloride 103 Carbon Dioxide 29.2 Anion Gap 10 BUN 18 Creatinine 0.97 Estimated GFR 75 L POC Glucose 110 Random Glucose 103 Calcium 8.0 L 09/09/18 11:34 WBC RBC Hgb Hct MCV MCH MCHC RDW Plt Count MPV PT INR APTT Sodium Potassium Chloride Carbon Dioxide Anion Gap BUN Creatinine Estimated GFR POC Glucose 174 H Random Glucose Calcium - Imaging Impressions Chest CTA 09/09/18 00:00 CONCLUSION: 1. Breathing motion artifact degrades the study somewhat. 2. Tiny solitary linear filling defect involving the interlobar pulmonary artery and the right is unchanged in the prior exam. This appearance is more suggestive of chronic clot. No acute filling defects observed on the current study. 3. Cardiomegaly. 4. Bilateral pleural effusions with passive atelectasis. Assessment and Plan - Plan 78-year-old male with history of PE, Systolic CHF presented with acute shortness of breath. Acute systolic CHF: EF decreased to 35-40% compared to his last echo. - Continue IV Lasix, beta-chung, DELMY inhibitor. We discussed fluid restrictions. Bilateral pulmonary embolism: Appreciate input from hematology/oncologist Dr. Rogers. Per his discussion with the radiologist, the pulmonary emboli does not appear to be new. - Current plan is to continue the patient on heparin drip with goal INR of 2.5. Repeat CTA pending today and if there is progression, a newer oral anticoagulant agent will be considered. I discussed the case with Dr. Rogers , gas fitter. Diabetes mellitus Holding home metformin Sliding-scale insulin Monitor blood glucose Coronary artery disease/hypertension/hyperlipidemia Continue home medication Aortic Stenosis by history/Status post Pacemaker placement -Advised outpatient follow-up with cardiology. Discharge Planning: Pending further workup. He should be able to return home. He adamantly refused SNF placement. Possible discharge tomorrow.
[2018-09-10 04:16] LABS: INR 1.7 Ratio; Prothrombin Time 17.3 sec (9.8-11.6)
[2018-09-10] MEDS: Insulin NovoLOG Aspart Correctional Sugar Inj SQ SCH ×4 (04:51→17:42)
[2018-09-10] MEDS: Metoprolol Tartrate 25 MG Tablet PO SCH ×2 (08:27→20:23)
[2018-09-10] MEDS: Senna/Docusate Sodium 8.6/50 MG Tablet PO SCH ×2 (08:28→20:23)
--- NOTE | 2018-09-10 11:38 | P.PNONC ---
Subjective Interval history: Patient reports generalized weakness. He states he had several episodes of shortness of breath last night while at rest. Patient does not fell that he is strong enough to be discharged home today. Continues on heparin drip and warfarin, INR today 1.7. Objective Vital Signs/Intake & Output: Vital Signs 09/09/18 15:00 09/09/18 19:00 09/09/18 20:00 Temperature 97.7 F 97.7 F Pulse Rate 60 73 Respiratory Rate 18 18 Blood Pressure 138/84 116/57 L Pulse Oximetry 97 99 97 09/09/18 23:00 09/10/18 00:25 09/10/18 03:00 Temperature 97.7 F Pulse Rate 69 63 Respiratory Rate 18 18 Blood Pressure 126/63 Pulse Oximetry 98 09/10/18 04:07 09/10/18 07:00 09/10/18 08:00 Temperature 97.6 F 97.6 F Pulse Rate 63 92 H Respiratory Rate 18 20 Blood Pressure 132/71 155/78 H Pulse Oximetry 99 97 97 Intake & Output 09/09/18 09/10/18 09/10/18 18:59 06:59 18:59 Intake Total 490 / 490 240 / 240 Output Total 800 / 800 725 / 725 Balance -310 / -310 -485 / -485 Weight 130 kg Intake: IV 250 / 250 Heparin/D5W 25,000 U/250 mL 25, 250 / 250 000 unit In 250 ml @ Per Protocol IV.CONT TITRATE PRN Rx #:[id number] Oral 240 / 240 240 / 240 Output: Urine 800 / 800 725 / 725 Other: # Voids 2 Date of Last Bowel Movement 09/09/18 09/09/18 Result Diagrams: 09/09/18 04:57 09/09/18 04:57 Laboratory Results: Laboratory Results - last 24 hr 09/09/18 09/09/18 09/09/18 11:34 17:08 20:44 PT INR APTT POC Glucose 174 H 112 H 134 H 09/10/18 09/10/18 09/10/18 03:41 03:41 07:46 PT 17.3 H INR 1.7 APTT 45.0 H D POC Glucose 120 H Imaging Studies: Impressions Chest CTA 09/09/18 00:00 CONCLUSION: 1. Breathing motion artifact degrades the study somewhat. 2. Tiny solitary linear filling defect involving the interlobar pulmonary artery and the right is unchanged in the prior exam. This appearance is more suggestive of chronic clot. No acute filling defects observed on the current study. 3. Cardiomegaly. 4. Bilateral pleural effusions with passive atelectasis. Medications: Active Medications Generic Name Dose Route Start Last Admin Trade Name Freq PRN Reason Stop Dose Admin Aspirin 81 mg 09/07/18 09:00 09/10/18 08:28 Aspirin Chew PO 81 mg DAILY MICHAEL Administration Clonidine HCl 0.1 mg 09/07/18 16:06 09/07/18 16:35 Catapres PO 0.1 mg Q6H PRN Administration HYPERTENSION Furosemide 40 mg 09/07/18 09:00 09/10/18 08:29 Lasix Inj IV.PUSH 40 mg BID@0900,1800 MICHAEL Administration Guaifenesin 200 mg 09/08/18 14:00 09/10/18 06:42 Robitussin Liq PO 200 mg Q8HR MICHAEL Administration Heparin Sodium/Dextrose 25,000 unit in 250 mls @ 0 mls/hr 09/06/18 20:39 11/15 16:46 Heparin/D5w 25,000 U/250 Ml IV.CONT 1,000 units/hr TITRATE PRN 10 mls/hr Per Protocol Administration Protocol Per Protocol Insulin Aspart 0 unit 09/07/18 03:00 09/10/18 08:26 Novolog Insulin Correctional Sugar Inj SQ Not Given ACHS AND 3AM MICHAEL Protocol Lactulose 30 ml 09/06/18 22:18 09/09/18 13:27 Lactulose Liq PO 30 ml DAILY PRN Administration SEVERE [employer]IP[employer] Losartan Potassium 100 mg 09/07/18 09:00 09/10/18 08:28 Cozaar PO 100 mg DAILY MICHAEL Administration Metoprolol Tartrate 25 mg 09/07/18 09:00 09/10/18 08:27 Lopressor PO 25 mg BID MICHAEL Administration Oxycodone HCl 10 mg 09/07/18 10:47 09/10/18 08:29 Roxicodone PO 10 mg Q8H PRN Administration PAIN SCALE 6 TO 10 Pravastatin Sodium 40 mg 09/07/18 09:00 09/10/18 08:27 Pravachol PO 40 mg DAILY MICHAEL Administration Senna/Docusate Sodium 1 tab 09/07/18 09:00 09/10/18 08:28 Toya-Colace PO Not Given BID [facility] Sennosides 17.2 mg 09/06/18 22:18 09/09/18 08:35 Senokot PO 17.2 mg Q12H PRN Administration Moderate Constipation Warfarin Sodium 5 mg 09/07/18 18:00 09/09/18 16:46 Coumadin PO 5 mg DAILY@1600 MICHAEL Administration Objective Remarks: GENERAL: Well-nourished, well-developed patient. SKIN: Warm and dry. HEAD: Normocephalic. EYES: No scleral icterus. No injection or drainage. NECK: Supple, trachea midline. No JVD or lymphadenopathy. LYMPHATIC: No adenopathy. CARDIOVASCULAR: Regular rate and rhythm without murmurs. RESPIRATORY: Decreased right lower lobe. No accessory muscle use. O2 via NC. GASTROINTESTINAL: Abdomen large, hard, non-tender. EXTREMITIES: No cyanosis, or edema. chronic BLE discoloration, scaly, dry skin. MUSCULOSKELETAL: Adequate muscle tone. NEUROLOGICAL: No obvious focal deficit. Awake, alert, and oriented x3. PSYCHIATRIC: Appropriate mood and affect; insight and judgment normal. Assessment/Plan - Plan Mr. Vargas weaver gentlemiriam, who presented to the hospital with increasing shortness of breath. 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 He has been on long-term Coumadin anticoagulation and has an IVC filter in place. CTA Showed filling defects within the lower lobes bilaterally suggesting small bilateral pulmonary emboli. Moderate right and small left pleural effusions. Bibasilar consolidation likely atelectasis. Coronary artery calcifications. An aortic valve replacement. Patient was placed on a heparin drip and hematology was consulted for pulmonary embolisms while on therapeutic anticoagulation. Plan: 1. Possible bilateral pulmonary embolisms. Dr. Connor discussed with radiologist and feels these may be residual old PEs. Patient had therapeutic INR and ultrasound of lower extremities was negative for DVTs. Repeat CTA suggests chronic clot. Continues on heparin drip and Coumadin, INR today subtherapeutic at 1.7. APTT at 45. Goal INR 2.5. 2. CHF exacerbation, patient reports episodes of shortness of breath at rest during the night. No acute distress at this time. Continues on diuretics. 3. Continue heparin drip until therapeutic INR of 2.5. Continue to monitor daily INR. Continue to monitor for bleeding. - Attending Statement The exam, history, and the medical decision-making described in the above note were completed with the assistance of the mid-level provider. I reviewed and agree with the findings presented. I attest that I had a [id number] encounter with the patient on the same day, and personally performed and documented my assessment and findings in the medical record. Patient still feeling weak and has shortness of breath. CT reportedly showed chronic thrombosis and no acute pulmonary embolism. No evidence of Coumadin failure. He is currently on heparin and being transitioned back to Coumadin. INR still subtherapeutic. Continue diuresis per primary team.
--- NOTE | 2018-09-10 13:58 | P.PNIM ---
Subjective Interval history: Patient still reports intermittent episodes of shortness of breath. He does report feeling anxious at times. He also complained of left-sided abdominal discomfort at the site of an old hematoma that he sustained from a fall all the way back in November of this year. INR down to 1.7 Physical Exam Vital signs: Vital Signs 09/09/18 15:00 09/09/18 19:00 09/09/18 20:00 Temperature 97.7 F 97.7 F Pulse Rate 60 73 Respiratory Rate 18 18 Blood Pressure 138/84 116/57 L Pulse Oximetry 97 99 97 09/09/18 23:00 09/10/18 00:25 09/10/18 03:00 Temperature 97.7 F Pulse Rate 69 63 Respiratory Rate 18 18 Blood Pressure 126/63 Pulse Oximetry 98 09/10/18 04:07 09/10/18 07:00 09/10/18 08:00 Temperature 97.6 F 97.6 F Pulse Rate 63 92 H Respiratory Rate 18 20 Blood Pressure 132/71 155/78 H Pulse Oximetry 99 97 97 09/10/18 09:00 09/10/18 11:00 Temperature 98.3 F Pulse Rate 89 Respiratory Rate 18 22 Blood Pressure 114/62 Pulse Oximetry 96 Intake & Output 09/09/18 09/10/18 09/10/18 18:59 06:59 18:59 Intake Total 490 / 490 240 / 240 Output Total 800 / 800 725 / 725 Balance -310 / -310 -485 / -485 Weight 130 kg Intake: IV 250 / 250 Heparin/D5W 25,000 U/250 mL 25, 250 / 250 000 unit In 250 ml @ Per Protocol IV.CONT TITRATE PRN Rx #:[id number] Oral 240 / 240 240 / 240 Output: Urine 800 / 800 725 / 725 Other: # Voids 2 Date of Last Bowel Movement 09/09/18 09/09/18 Narrative: GENERAL: This is a well-nourished, well-developed patient, in no apparent distress. CARDIOVASCULAR: Normal rate and regular rhythm without murmurs, gallops, or rubs. RESPIRATORY: Good respiratory efforts. Diminished breath sounds bilateral at the bases, otherwise clear to auscultation bilaterally GASTROINTESTINAL: Abdomen obese, left lower quadrant is more swollen compared to the right. Difficult exam due to obesity. Unable to rule out if ascites present MUSCULOSKELETAL: Bilateral lower extremity lymphedema with chronic scaling NEURO: Alert & Oriented x4 to person, place, time, situation. Moves all ext x4 PSYCH: Appropriate mood and affect. Results - Labs CBC & Chem 7: 09/09/18 04:57 09/09/18 04:57 Laboratory Results - last 24 hr 09/09/18 09/09/18 09/10/18 17:08 20:44 03:41 PT 17.3 H INR 1.7 APTT POC Glucose 112 H 134 H 09/10/18 09/10/18 09/10/18 03:41 07:46 11:53 PT INR APTT 45.0 H D POC Glucose 120 H 154 H Assessment and Plan - Plan 78-year-old male with history of PE, Systolic CHF presented with acute shortness of breath. Acute systolic CHF: EF decreased to 35-40% compared to his last echo. - Continue IV Lasix, beta-chung, DELMY inhibitor. We discussed fluid restrictions. Concern about ascites. Abdominal US ordered Bilateral pulmonary embolism: Appreciate input from hematology/oncologist Dr. Rogers. Per his discussion with the radiologist, the pulmonary emboli does not appear to be new. Repeat CTA did not show any progression and also suggest old clots. - Appreciate input from hematology. Continue heparin with goal INR of 2.5. He will receive increased dose of Coumadin today 6 mg. Follow INR Diabetes mellitus Holding home metformin Sliding-scale insulin Monitor blood glucose Coronary artery disease/hypertension/hyperlipidemia Continue home medication Abdominal pain/old hematoma/concern for ascites: - Obtain abdominal US. Aortic Stenosis by history/Status post Pacemaker placement -Advised outpatient follow-up with cardiology. Physical deconditioning: - Patient would benefit from SNF placement however he adamantly denied placement and will return home with HH PT. Discharge Planning: He adamantly refused SNF placement. Follow INR. Plan to DC with HH once INR therapeutic.
[2018-09-10] MEDS: Heparin Drip 25,000 UNIT/250 ML BAG IV.CONT PRN (16:42)
--- NOTE | 2018-09-10 19:49 | US ---
EXAM DATE: 09/10/2018 12:00 AM EDT AGE/SEX: 78 years / Male INDICATIONS: Elevated lab values. Ascites. CLINICAL DATA: This is the patient's initial encounter. Patient reports that signs and symptoms have been present for 1 week and indicates a pain score of 4/10. MEDICAL/SURGICAL HISTORY: Congestive heart failure. Hypertension. Aortic stenosis. Coronary ar gray disease. Hyperlipidemia. Leukemia. Pulmonary embolism. Pacemaker. Angioplasty. Aortic valve re placement. Knee surgery. COMPARISON: [facility] – [place], CT ABDOMEN & PELVIS W CONTRAST, 12/21/2017. . MEASUREMENTS: Liver:__ 19.1 cm. Common Bile Duct:___ Nonvisualized. Right Kidney:___12.5 x 5.9 x 6.4 cm. Left Kidney:___12.3 x 5.1 x 7.5 cm. Spleen:___10.9 cm. FINDINGS: Liver: Normal echotexture without focal lesion or ductal dilatation. Portal Vein: Hepatopedal flow seen in portal vein. Common Duct: Not visualized. Gallbladder: Gallbladder is nondistended. 5 mm shadowing focus indicating a gallstone in the gallbl adder. Wall is mildly diffusely thickened, may be due to nondistention. Pancreas: Not well visualized. Right Kidney: Normal echotexture and cortical thickness. No mass or hydronephrosis. Left Kidney: Normal echotexture and cortical thickness. No mass or hydronephrosis. Ascites: None Pleural Effusion: Bilateral Spleen: No focal lesion. Aorta: Non aneurysmal. IVC: Within normal limits Other: Superficial fluid collection measuring 26 x 10 cm and the left lower quadrant of the abdomen correlates with findings seen on prior CT of November 2017 likely are presenting a chronic hematoma.. CONCLUSION: 1. Nondistended gallbladder with 5 mm calculus. 2. Prominent superficial soft tissue fluid collection in the left lower quadrant similar to finding seen on November 2017 CT examination. 3. Bilateral pleural effusions. Electronically signed by: Chas Hawley MD 09/10/2018 7:48 PM EDT
[2018-09-11 07:20] LABS: Hematocrit 34.6 % (39.0-51.0); Hemoglobin 11.7 gm/dL (13.0-17.0); Mean Corpuscular HGB Conc 33.8 % (32.0-36.0); Mean Corpuscular Hemoglobin 31.4 pg (27.0-34.0); Mean Corpuscular Volume 92.8 fL (80.0-100.0); Mean Platelet Volume 7.8 fL (7.0-11.0); Platelet Count 201 th/mm3 (150-450); Red Blood Count 3.73 mil/mm3 (4.50-5.90); Red Cell Distribution Width 19.8 % (11.6-17.2); White Blood Count 5.5 th/mm3 (4.0-11.0)
[2018-09-11 07:27] LABS: Activated Partial Thrombo Time 48.8 sec (24.3-30.1); INR 1.6 Ratio; Prothrombin Time 15.8 sec (9.8-11.6)
[2018-09-11 07:33] LABS: Calcium 8.5 mg/dL (8.5-10.1); Carbon Dioxide 31.5 meq/L (21.0-32.0); Potassium 3.6 meq/L (3.5-5.1)
[2018-09-11] MEDS: Metoprolol Tartrate 25 MG Tablet PO SCH ×2 (08:39→21:06)
[2018-09-11] MEDS: Senna/Docusate Sodium 8.6/50 MG Tablet PO SCH ×2 (08:40→21:06)
--- NOTE | 2018-09-11 09:08 | P.PNONC ---
Subjective Interval history: Afebrile. Patient sitting in chair, no acute distress. He denies any active bleeding at this time. He has noticed increasing bruises to his left forearm. He reports only having one episode of shortness of breath which did not last very long. This occurred when he first got in bed last night. Continues to have pitting edema.+ Increased urination. Objective Vital Signs/Intake & Output: Vital Signs 09/10/18 11:00 09/10/18 15:00 09/10/18 17:10 Temperature 98.3 F 97.6 F Pulse Rate 98 H 77 Respiratory Rate 22 22 18 Blood Pressure 114/62 136/74 Pulse Oximetry 96 09/10/18 19:00 09/10/18 20:00 09/10/18 23:00 Temperature 98.6 F 97.8 F Pulse Rate 82 74 Respiratory Rate 20 22 Blood Pressure 154/96 H 135/77 Pulse Oximetry 97 97 98 09/11/18 03:00 09/11/18 07:00 09/11/18 08:25 Temperature 97.6 F 98.4 F Pulse Rate 65 71 86 Respiratory Rate 20 18 Blood Pressure 139/80 161/95 H Pulse Oximetry 97 97 09/11/18 08:45 Temperature Pulse Rate Respiratory Rate Blood Pressure Pulse Oximetry 94 L Intake & Output 09/10/18 09/11/18 09/11/18 18:59 06:59 18:59 Intake Total 970 / 970 720 / 720 Output Total 1450 / 1450 1600 / 1600 Balance -480 / -480 -880 / -880 Weight 125.9 kg Intake: IV 250 / 250 Heparin/D5W 25,000 U/250 mL 25, 250 / 250 000 unit In 250 ml @ Per Protocol IV.CONT TITRATE PRN Rx #:[id number] Oral 720 / 720 720 / 720 Output: Urine 1450 / 1450 1600 / 1600 Other: Date of Last Bowel Movement 09/09/18 09/10/18 Result Diagrams: 09/11/18 06:28 09/11/18 06:28 Laboratory Results: Laboratory Results - last 24 hr 09/10/18 09/10/18 09/11/18 11:53 16:46 06:28 WBC RBC Hgb Hct MCV MCH MCHC RDW Plt Count MPV PT 15.8 H INR 1.6 APTT 48.8 H Sodium Potassium Chloride Carbon Dioxide Anion Gap BUN Creatinine Estimated GFR POC Glucose 154 H 103 Random Glucose Calcium 09/11/18 09/11/18 06:28 06:28 WBC 5.5 RBC 3.73 L Hgb 11.7 L Hct 34.6 L MCV 92.8 MCH 31.4 MCHC 33.8 RDW 19.8 H Plt Count 201 MPV 7.8 PT INR APTT Sodium 139 Potassium 3.6 Chloride 102 Carbon Dioxide 31.5 Anion Gap 6 BUN 17 Creatinine 0.97 Estimated GFR 75 L POC Glucose Random Glucose 111 H Calcium 8.5 Imaging Studies: Impressions Abdomen Ultrasound 09/10/18 00:00 CONCLUSION: 1. Nondistended gallbladder with 5 mm calculus. 2. Prominent superficial soft tissue fluid collection in the left lower quadrant similar to finding seen on November 2017 CT examination. 3. Bilateral pleural effusions. Medications: Active Medications Generic Name Dose Route Start Last Admin Trade Name Freq PRN Reason Stop Dose Admin Aspirin 81 mg 09/07/18 09:00 09/11/18 08:40 Aspirin Chew PO 81 mg DAILY MICHAEL Administration Clonidine HCl 0.1 mg 09/07/18 16:06 09/07/18 16:35 Catapres PO 0.1 mg Q6H PRN Administration HYPERTENSION Furosemide 40 mg 09/07/18 09:00 09/11/18 08:39 Lasix Inj IV.PUSH 40 mg BID@0900,1800 MICHAEL Administration Guaifenesin 200 mg 09/08/18 14:00 09/11/18 06:13 Robitussin Liq PO 200 mg Q8HR MICHAEL Administration Heparin Sodium/Dextrose 25,000 unit in 250 mls @ 0 mls/hr 09/06/18 20:39 16:42 Heparin/D5w 25,000 U/250 Ml IV.CONT 1,000 units/hr TITRATE PRN 10 mls/hr Per Protocol Administration Protocol Per Protocol Lactulose 30 ml 09/06/18 22:18 09/09/18 13:27 Lactulose Liq PO 30 ml DAILY PRN Administration SEVERE CONSITIPATION Losartan Potassium 100 mg 09/07/18 09:00 09/11/18 08:40 Cozaar PO 100 mg DAILY MICHAEL Administration Metoprolol Tartrate 25 mg 09/07/18 09:00 09/11/18 08:39 Lopressor PO 25 mg BID MICHAEL Administration Oxycodone HCl 10 mg 09/07/18 10:47 09/11/18 03:08 Roxicodone PO 10 mg Q8H PRN Administration PAIN SCALE 6 TO 10 Pravastatin Sodium 40 mg 09/07/18 09:00 09/11/18 08:40 Pravachol PO 40 mg DAILY MICHAEL Administration Senna/Docusate Sodium 1 tab 09/07/18 09:00 09/11/18 08:40 Toya-Colace PO 1 tab BID MICHAEL Administration Sennosides 17.2 mg 09/06/18 22:18 09/09/18 08:35 Senokot PO 17.2 mg Q12H PRN Administration Moderate Constipation Warfarin Sodium 5 mg 09/07/18 18:00 09/10/18 16:40 Coumadin PO 5 mg DAILY@1600 MICHAEL Administration Objective Remarks: GENERAL: Well-nourished, well-developed obese, elderly male patient, in no acute distress. SKIN: Warm and dry. Ecchymosis to left forearm. HEAD: Normocephalic. EYES: No scleral icterus. No injection or drainage. NECK: Supple, trachea midline. CARDIOVASCULAR: Regular rate and rhythm without murmurs. RESPIRATORY: Decreased right lower lobe. Nonlabored at rest. Currently on room air. GASTROINTESTINAL: Abdomen large, hard, non-tender. EXTREMITIES: No cyanosis. chronic BLE discoloration, scaly, dry skin. +3 pitting edema to BLE. MUSCULOSKELETAL: Adequate muscle tone. NEUROLOGICAL: No obvious focal deficit. Awake, alert, and oriented x3. PSYCHIATRIC: Appropriate mood and affect; insight and judgment normal. 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 He has been on long-term Coumadin anticoagulation and has an IVC filter in place. CTA Showed filling defects within the lower lobes bilaterally suggesting small bilateral pulmonary emboli. Moderate right and small left pleural effusions. Bibasilar consolidation likely atelectasis. Coronary artery calcifications. An aortic valve replacement. Patient was placed on a heparin drip and hematology was consulted for pulmonary embolisms while on therapeutic anticoagulation. Plan: 1. 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 Repeat CTA suggests chronic clot. Continues on heparin drip and Coumadin, INR today subtherapeutic at 1.6. APTT at 48.8. Goal INR 2.5. 2. CHF exacerbation, Continues on diuretics. 3. Continue heparin drip until therapeutic INR of 2.5. Continue to monitor daily INR. Continue to monitor for bleeding. - Attending Statement The exam, history, and the medical decision-making described in the above note were completed with the assistance of the mid-level provider. I reviewed and agree with the findings presented. I attest that I had a [id number] encounter with the patient on the same day, and personally performed and documented my assessment and findings in the medical record. Patient's shortness of breath has improved. He is still on heparin and no evidence of bleeding. INR is still not therapeutic. His left flank hematoma has been there since November. He denies any tenderness. He had ultrasound last night which showed a large hematoma but stable compared to prior CT scan in November. Continue heparin and transition to Coumadin.
--- NOTE | 2018-09-11 15:14 | P.PNIM ---
Subjective Interval history: Patient reports is feeling okay today. Still gets occasional shortness of breath at night. No chest pain. Physical Exam Vital signs: Vital Signs 09/10/18 17:10 09/10/18 19:00 09/10/18 20:00 Temperature 98.6 F Pulse Rate 82 Respiratory Rate 18 20 Blood Pressure 154/96 H Pulse Oximetry 97 97 09/10/18 23:00 09/11/18 03:00 09/11/18 07:00 Temperature 97.8 F 97.6 F Pulse Rate 74 65 71 Respiratory Rate 22 20 Blood Pressure 135/77 139/80 Pulse Oximetry 98 97 09/11/18 08:25 09/11/18 08:45 09/11/18 11:00 Temperature 98.4 F Pulse Rate 86 79 Respiratory Rate 18 Blood Pressure 161/95 H Pulse Oximetry 97 94 L 09/11/18 11:21 09/11/18 15:00 Temperature 98.3 F Pulse Rate 87 66 Respiratory Rate 18 Blood Pressure 139/73 Pulse Oximetry 92 L Intake & Output 09/10/18 09/11/18 09/11/18 18:59 06:59 18:59 Intake Total 970 / 970 720 / 720 Output Total 1450 / 1450 1600 / 1600 Balance -480 / -480 -880 / -880 Weight 125.9 kg Intake: IV 250 / 250 Heparin/D5W 25,000 U/250 mL 25, 250 / 250 000 unit In 250 ml @ Per Protocol IV.CONT TITRATE PRN Rx #:[id number] Oral 720 / 720 720 / 720 Output: Urine 1450 / 1450 1600 / 1600 Other: Date of Last Bowel Movement 09/09/18 09/10/18 Narrative: GENERAL: This is a well-nourished, well-developed patient, in no apparent distress. CARDIOVASCULAR: Normal rate and regular rhythm without murmurs, gallops, or rubs. RESPIRATORY: Good respiratory efforts. Diminished breath sounds bilateral at the bases, otherwise clear to auscultation bilaterally GASTROINTESTINAL: Abdomen obese, left lower quadrant is more swollen compared to the right. Difficult exam due to obesity. MUSCULOSKELETAL: Bilateral lower extremity lymphedema with chronic scaling NEURO: Alert & Oriented x4 to person, place, time, situation. Moves all ext x4 PSYCH: Appropriate mood and affect. Results - Labs CBC & Chem 7: 09/11/18 06:28 09/11/18 06:28 Laboratory Results - last 24 hr 09/10/18 09/11/18 09/11/18 16:46 06:28 06:28 WBC 5.5 RBC 3.73 L Hgb 11.7 L Hct 34.6 L MCV 92.8 MCH 31.4 MCHC 33.8 RDW 19.8 H Plt Count 201 MPV 7.8 PT 15.8 H INR 1.6 APTT 48.8 H Sodium Potassium Chloride Carbon Dioxide Anion Gap BUN Creatinine Estimated GFR POC Glucose 103 Random Glucose Calcium 09/11/18 06:28 WBC RBC Hgb Hct MCV MCH MCHC RDW Plt Count MPV PT INR APTT Sodium 139 Potassium 3.6 Chloride 102 Carbon Dioxide 31.5 Anion Gap 6 BUN 17 Creatinine 0.97 Estimated GFR 75 L POC Glucose Random Glucose 111 H Calcium 8.5 - Imaging Impressions Abdomen Ultrasound 09/10/18 00:00 CONCLUSION: 1. Nondistended gallbladder with 5 mm calculus. 2. Prominent superficial soft tissue fluid collection in the left lower quadrant similar to finding seen on November 2017 CT examination. 3. Bilateral pleural effusions. Assessment and Plan - Plan 78-year-old male with history of PE, Systolic CHF presented with acute shortness of breath. Acute systolic CHF: EF decreased to 35-40% compared to his last echo. - Continue IV Lasix, beta-chung, DELMY inhibitor. We discussed fluid restrictions. -Patient is diuresing well. Continue IV Lasix for now. Bilateral pulmonary embolism: Appreciate input from hematology/oncologist Dr. Rogers. Per his discussion with the radiologist, the pulmonary emboli does not appear to be new. Repeat CTA did not show any progression and also suggest old clots. - Appreciate input from hematology. INR still subtherapeutic. Continue heparin with goal INR of 2.5. He will receive increased dose of Coumadin today 7 mg. Follow INR -Add incentive spirometry. Diabetes mellitus Holding home metformin Sliding-scale insulin Monitor blood glucose Coronary artery disease/hypertension/hyperlipidemia Continue home medication Abdominal pain/old hematoma/concern for ascites: -Abdominal ultrasound shows a chronic hematoma on the left flank. This is unchanged compared to prior imaging. - Pain control as needed. Aortic Stenosis by history/Status post Pacemaker placement -Advised outpatient follow-up with cardiology. Physical deconditioning: - Patient would benefit from SNF placement however he adamantly denied placement and will return home with HH PT. Discharge Planning: He adamantly refused SNF placement. Follow INR. Plan to DC with HH once INR therapeutic.
[2018-09-11] MEDS: Heparin Drip 25,000 UNIT/250 ML BAG IV.CONT PRN (18:22)
[2018-09-12 07:25] LABS: Activated Partial Thrombo Time 55.8 sec (24.3-30.1); INR 1.6 Ratio; Prothrombin Time 16.5 sec (9.8-11.6)
[2018-09-12] MEDS: Metoprolol Tartrate 25 MG Tablet PO SCH ×2 (08:25→20:55)
[2018-09-12] MEDS: Senna/Docusate Sodium 8.6/50 MG Tablet PO SCH ×2 (08:26→20:55)
[2018-09-12] MEDS ORDERED: Sodium Chloride 0.9% 2 ML Flush PRN IV.FLUSH (09:53)
--- NOTE | 2018-09-12 14:12 | P.PNIM ---
Subjective Interval history: Patient reports he is feeling okay today. Breathing is slightly improved. INR still around 1.6. Physical Exam Vital signs: Vital Signs 09/11/18 15:00 09/11/18 15:24 09/11/18 19:00 Temperature 97.5 F L 98.1 F Pulse Rate 66 67 89 Respiratory Rate 18 16 Blood Pressure 142/71 H 136/67 Pulse Oximetry 95 96 09/11/18 20:00 09/11/18 21:46 09/11/18 23:00 Temperature Pulse Rate 64 Respiratory Rate Blood Pressure Pulse Oximetry 97 97 09/11/18 23:15 09/12/18 03:00 09/12/18 03:43 Temperature 97.4 F L 97.6 F Pulse Rate 76 77 73 Respiratory Rate 17 16 Blood Pressure 168/88 H 121/64 Pulse Oximetry 95 96 09/12/18 06:54 09/12/18 07:00 09/12/18 08:00 Temperature 97.5 F L Pulse Rate 91 H 86 Respiratory Rate 16 20 Blood Pressure 164/84 H Pulse Oximetry 93 L 93 L 09/12/18 09:00 09/12/18 10:00 09/12/18 11:00 Temperature 98.3 F Pulse Rate 84 66 83 Respiratory Rate 20 Blood Pressure 107/56 L Pulse Oximetry 94 L Intake & Output 09/11/18 09/12/18 09/12/18 18:59 06:59 18:59 Intake Total 1270 / 1270 480 / 480 Output Total 1250 / 1250 1600 / 1600 Balance 20 / 20 -1120 / -1120 Weight 126.3 kg Intake: IV 250 / 250 Heparin/D5W 25,000 U/250 mL 25, 250 / 250 000 unit In 250 ml @ Per Protocol IV.CONT TITRATE PRN Rx #:[id number] Oral 1020 / 1020 480 / 480 Output: Urine 1250 / 1250 1600 / 1600 Other: Date of Last Bowel Movement 09/10/18 09/10/18 09/10/18 Narrative: GENERAL: This is a well-nourished, well-developed patient, in no apparent distress. CARDIOVASCULAR: Normal rate and regular rhythm without murmurs, gallops, or rubs. RESPIRATORY: Good respiratory efforts. Diminished breath sounds bilateral at the bases, otherwise clear to auscultation bilaterally GASTROINTESTINAL: Abdomen obese, left lower quadrant is more swollen compared to the right. Difficult exam due to obesity. MUSCULOSKELETAL: Bilateral lower extremity lymphedema with chronic scaling NEURO: Alert & Oriented x4 to person, place, time, situation. Moves all ext x4 PSYCH: Appropriate mood and affect. Results - Labs CBC & Chem 7: 09/11/18 06:28 09/11/18 06:28 Laboratory Results - last 24 hr 09/12/18 06:35 PT 16.5 H INR 1.6 APTT 55.8 H Assessment and Plan - Plan 78-year-old male with history of PE, Systolic CHF presented with acute shortness of breath. Acute systolic CHF: EF decreased to 35-40% compared to his last echo. - Continue IV Lasix, beta-chung, DELMY inhibitor. We discussed fluid restrictions. -Patient is diuresing well. Continue IV Lasix for now. Bilateral pulmonary embolism: Appreciate input from hematology/oncologist Dr. Rogers. Per his discussion with the radiologist, the pulmonary emboli does not appear to be new. Repeat CTA did not show any progression and also suggest old clots. - Appreciate input from hematology. INR still subtherapeutic. Discussed with hematology. Will transition the patient to Lovenox bridging with Coumadin. Discontinue heparin and start Lovenox after an hour. Lovenox teaching. Consider discharging the patient home with Lovenox bridging to Coumadin if INR is still subtherapeutic. - Incentive spirometry. - Continue Coumadin Diabetes mellitus Holding home metformin Sliding-scale insulin Monitor blood glucose Coronary artery disease/hypertension/hyperlipidemia Continue home medication Abdominal pain/old hematoma/concern for ascites: -Abdominal ultrasound shows a chronic hematoma on the left flank. This is unchanged compared to prior imaging. - Pain control as needed. Aortic Stenosis by history/Status post Pacemaker placement -Advised outpatient follow-up with cardiology. Physical deconditioning: - Patient would benefit from SNF placement however he adamantly denied placement and will return home with PT. Discharge Planning: He adamantly refused SNF placement. Follow INR. Plan to DC with probably tomorrow.
--- NOTE | 2018-09-12 16:48 | P.PNONC ---
Subjective Interval history: Afebrile Patient reports his shortness of breath is not as improved as he had hoped by now No bleeding Reports he has INR machine at home Objective Vital Signs/Intake & Output: Vital Signs 09/11/18 19:00 09/11/18 20:00 09/11/18 21:46 Temperature 98.1 F Pulse Rate 89 Respiratory Rate 16 Blood Pressure 136/67 Pulse Oximetry 96 97 97 09/11/18 23:00 09/11/18 23:15 09/12/18 03:00 Temperature 97.4 F L Pulse Rate 64 76 77 Respiratory Rate 17 Blood Pressure 168/88 H Pulse Oximetry 95 09/12/18 03:43 09/12/18 06:54 09/12/18 07:00 Temperature 97.6 F 97.5 F L Pulse Rate 73 91 H Respiratory Rate 16 16 20 Blood Pressure 121/64 164/84 H Pulse Oximetry 96 93 L 09/12/18 08:00 09/12/18 09:00 09/12/18 10:00 Temperature Pulse Rate 86 84 66 Respiratory Rate Blood Pressure Pulse Oximetry 93 L 09/12/18 11:00 09/12/18 12:00 09/12/18 13:00 Temperature 98.3 F Pulse Rate 83 72 72 Respiratory Rate 20 Blood Pressure 107/56 L Pulse Oximetry 94 L 09/12/18 14:00 09/12/18 15:00 09/12/18 16:00 Temperature 98.1 F Pulse Rate 76 86 60 Respiratory Rate 20 Blood Pressure 92/59 L Pulse Oximetry 94 L Intake & Output 09/11/18 09/12/18 09/12/18 18:59 06:59 18:59 Intake Total 1270 / 1270 480 / 480 Output Total 1250 / 1250 1600 / 1600 Balance -1120 / -1120 Weight 278 lb 7.101 oz Intake: IV 250 / 250 Heparin/D5W 25,000 U/250 mL 25, 250 / 250 000 unit In 250 ml @ Per Protocol IV.CONT TITRATE PRN Rx #:[id number] Oral 1020 / 1020 480 / 480 Output: Urine 1250 / 1250 1600 / 1600 Other: Date of Last Bowel Movement 09/10/18 09/10/18 09/10/18 Result Diagrams: 09/11/18 06:28 09/11/18 06:28 Laboratory Results: Laboratory Results - last 24 hr 09/12/18 06:35 PT 16.5 H INR 1.6 APTT 55.8 H Medications: Active Medications Generic Name Dose Route Start Last Admin Trade Name Freq PRN Reason Stop Dose Admin Aspirin 81 mg 09/07/18 09:00 09/12/18 08:25 Aspirin Chew PO 81 mg DAILY MICHAEL Administration Clonidine HCl 0.1 mg 09/07/18 16:06 09/07/18 16:35 Catapres PO 0.1 mg Q6H PRN Administration HYPERTENSION Furosemide 40 mg 09/07/18 09:00 09/12/18 08:28 Lasix Inj IV.PUSH 40 mg BID@0900,1800 MICHAEL Administration Guaifenesin 200 mg 09/08/18 14:00 09/12/18 16:28 Robitussin Liq PO 200 mg Q8HR MICHAEL Administration Heparin Sodium/Dextrose 25,000 unit in 250 mls @ 0 mls/hr 09/06/18 20:39 18:22 Heparin/D5w 25,000 U/250 Ml IV.CONT 1,000 units/hr TITRATE PRN 10 mls/hr Per Protocol Administration Protocol Per Protocol Lactulose 30 ml 09/06/18 22:18 09/09/18 13:27 Lactulose Liq PO 30 ml DAILY PRN Administration SEVERE CONSITIPATION Losartan Potassium 100 mg 09/07/18 09:00 09/12/18 08:25 Cozaar PO 100 mg DAILY MICHAEL Administration Metoprolol Tartrate 25 mg 09/07/18 09:00 09/12/18 08:25 Lopressor PO 25 mg BID MICHAEL Administration Ondansetron HCl 4 mg 09/06/18 22:18 09/12/18 09:23 Zofran Inj IV.PUSH 4 mg Q6H PRN Administration NAUSEA OR VOMITING Oxycodone HCl 10 mg 09/07/18 10:47 09/12/18 05:50 Roxicodone PO 10 mg Q8H PRN Administration PAIN SCALE 6 TO 10 Pravastatin Sodium 40 mg 09/07/18 09:00 09/12/18 08:25 Pravachol PO 40 mg DAILY MICHAEL Administration Senna/Docusate Sodium 1 tab 09/07/18 09:00 09/12/18 08:26 Toya-Colace PO 1 tab BID MICHAEL Administration Sennosides 17.2 mg 10/09/18 22:18 09/09/18 08:35 Senokot PO 17.2 mg Q12H PRN Administration Moderate Constipation Warfarin Sodium 5 mg 09/07/18 18:00 09/12/18 16:28 Coumadin PO 5 mg DAILY@1600 MICHAEL Administration Objective Remarks: GENERAL: Well-nourished, well-developed obese, elderly male patient, in no acute distress. SKIN: Warm and dry. Ecchymosis to left forearm. HEAD: Normocephalic. EYES: No scleral icterus. No injection or drainage. NECK: Supple, trachea midline. CARDIOVASCULAR: Regular rate and rhythm without murmurs. RESPIRATORY: Decreased right lower lobe. Nonlabored at rest. Currently on room air. GASTROINTESTINAL: Abdomen large, hard, non-tender. EXTREMITIES: No cyanosis. chronic BLE discoloration, scaly, dry skin. +3 pitting edema to BLE. MUSCULOSKELETAL: Adequate muscle tone. NEUROLOGICAL: No obvious focal deficit. Awake, alert, and oriented x3. 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 He has been on long-term Coumadin anticoagulation and has an IVC filter in place. CTA Showed filling defects within the lower lobes bilaterally suggesting small bilateral pulmonary emboli. Moderate right and small left pleural effusions. Bibasilar consolidation likely atelectasis. Coronary artery calcifications. An aortic valve replacement. Patient was placed on a heparin drip and hematology was consulted for pulmonary embolisms while on therapeutic anticoagulation. Plan: 1. INR remains subtherapeutic today at 1.6. Discussed that we can put him on Lovenox injections as opposed to heparin drip if the anticoagulation bridge is holding him up for discharge. 2. Patient has history of hematoma. Ultrasound shows this is stable from prior appearance of CAT scan in November. Okay to proceed with Lovenox as his INR has been therapeutic for months and he has not had any bleeding episodes. 3. Continue supportive care.
[2018-09-12] MEDS: Enoxaparin Inj 120 MG/0.8 ML Syringe SQ SCH (20:55)
[2018-09-12] MEDS: Sodium Chloride 0.9% 2 ML Flush BID IV.FLUSH SCH (20:56)
[2018-09-13 06:51] LABS: Hematocrit 35.6 % (39.0-51.0); Hemoglobin 11.6 gm/dL (13.0-17.0); Mean Corpuscular HGB Conc 32.6 % (32.0-36.0); Mean Corpuscular Hemoglobin 30.9 pg (27.0-34.0); Mean Corpuscular Volume 94.8 fL (80.0-100.0); Platelet Count 201 th/mm3 (150-450); Red Blood Count 3.75 mil/mm3 (4.50-5.90); Red Cell Distribution Width 20.3 % (11.6-17.2)
[2018-09-13 07:01] LABS: INR 1.7 Ratio; Prothrombin Time 17.4 sec (9.8-11.6)
[2018-09-13 07:08] LABS: Calcium 8.4 mg/dL (8.5-10.1); Carbon Dioxide 30.3 meq/L (21.0-32.0)
[2018-09-13] MEDS: Enoxaparin Inj 120 MG/0.8 ML Syringe SQ SCH (08:38)
[2018-09-13] MEDS: Senna/Docusate Sodium 8.6/50 MG Tablet PO SCH (08:38)
[2018-09-13] MEDS: Metoprolol Tartrate 25 MG Tablet PO SCH (08:39)
[2018-09-13] MEDS: Sodium Chloride 0.9% 2 ML Flush BID IV.FLUSH SCH (08:39)
[2018-09-13 09:59] VITALS: O2SAT 92
[2018-09-13 12:31] VITALS: RESP 18
--- NOTE | 2018-09-13 12:31 | P.DS ---
Date of admission: 09/06/18 21:08 Primary care physician: Lai Hernandez MD Brief History from admission: HPI from the admitting physician: 78-year-old male past medical history of PE x3 anticoagulated on Coumadin, aortic valve replacement, hypertension, hyperlipidemia, diabetes mellitus, CHF ( last EF 45-50%) and CAD status post stent x5 presents to the emergency department for evaluation of shortness of breath since Wednesday. The patient also endorses an accompanying cough productive of clear mucus. He denies any fever/chills. INR was 2.0. The patient denies any associated chest pain. No abdominal pain. No nausea/vomiting/diarrhea. No lateralizing signs/symptoms. CTA significant for small bilateral lower lobe pulmonary emboli. Patient update on day of discharge: Patient reports he is feeling better. We discussed discharge planning at length and the need to follow-up outpatient. Again he adamantly refused SNF placement. He states he is used to doing Lovenox injections. He checks his INR himself. DS: Diagnosis - Discharge Diagnosis (1) Acute exacerbation of CHF (congestive heart failure) Status: Acute (2) Physical deconditioning Status: Acute (3) Pulmonary embolism Status: Acute DS: Medications - Discharge Medications Prescriptions: enoxaparin [Lovenox] 120 mg SUBCUT Q12HR #10 dose furosemide [Lasix] 40 mg PO BID #60 tab DS: Summary Hospital Course: 78-year-old male with history of PE, Systolic CHF presented with acute shortness of breath. Evaluation and treatment course detailed below: Acute systolic CHF: EF decreased to 35-40% compared to his last echo. - Continue IV Lasix, beta-chung, DELMY inhibitor. We discussed fluid restrictions. -Patient diuresed well. His respiratory symptoms improved. He is to continue on oral Lasix at increased dose of 40 mg twice daily Bilateral pulmonary embolism: Appreciate input from hematology/oncologist Dr. Rogers. Per his discussion with the radiologist, the pulmonary emboli does not appear to be new. Repeat CTA did not show any progression and also suggest old clots. - Appreciate input from hematology. INR subtherapeutic. Discussed with hematology. The patient was transitioned to Lovenox bridging with Coumadin. Will consider Lovenox at home with serial INR monitoring. He was advised to discontinue Lovenox once INR is above 2. 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 This is unchanged compared to prior imaging. - Pain control as needed. Aortic Stenosis by history/Status post Pacemaker placement -Advised outpatient follow-up with cardiology. Physical deconditioning: - Patient would benefit from SNF placement however he adamantly denied placement and will return home with HH and PT. - Time Spent with Patient Total time spent providing and/or coordinating discharge services: Greater than 30 minutes - Quality: VTE Deep Vein Thrombosis/Pulmonary Embolism Present on Admission: Yes Exam Vital signs: Vital Signs 09/12/18 13:00 09/12/18 14:00 09/12/18 15:00 Temperature 98.1 F Pulse Rate 72 76 86 Respiratory Rate 20 Blood Pressure 92/59 L Pulse Oximetry 94 L 09/12/18 16:00 09/12/18 19:00 09/12/18 19:18 Temperature 97.6 F Pulse Rate 60 71 Respiratory Rate 22 Blood Pressure 153/82 H Pulse Oximetry 94 L 94 L 09/12/18 20:00 09/12/18 23:00 09/13/18 03:00 Temperature 96.8 F L 97.4 F L Pulse Rate 69 68 Respiratory Rate 20 18 Blood Pressure 102/68 149/81 H Pulse Oximetry 94 L 94 L 94 L 09/13/18 05:15 09/13/18 07:00 09/13/18 08:00 Temperature Pulse Rate 75 Respiratory Rate 16 Blood Pressure Pulse Oximetry 92 L Intake & Output 09/12/18 09/13/18 09/13/18 18:59 06:59 18:59 Intake Total 1160 / 1160 Output Total 1200 / 1200 1500 / 1500 Balance -40 / -40 -1500 / -1500 Weight 127.3 kg Intake: Oral 1160 / 1160 Output: Urine 1200 / 1200 1500 / 1500 Other: Date of Last Bowel Movement 09/10/18 Narrative: GENERAL: This is a well-nourished, well-developed patient, in no apparent distress. CARDIOVASCULAR: Normal rate and regular rhythm without murmurs, gallops, or rubs. RESPIRATORY: Good respiratory efforts. Diminished breath sounds bilateral at the bases, otherwise clear to auscultation bilaterally GASTROINTESTINAL: Abdomen obese, left lower quadrant is more swollen compared to the right. Difficult exam due to obesity. MUSCULOSKELETAL: Bilateral lower extremity lymphedema with chronic scaling NEURO: Alert & Oriented x4 to person, place, time, situation. Moves all ext x4 PSYCH: Appropriate mood and affect. Results Procedures completed during hospitalization: None Labs on day of discharge: Labs from last 24 hours 09/13/18 09/13/18 09/13/18 06:07 06:07 06:07 WBC 5.0 RBC 3.75 L Hgb 11.6 L Hct 35.6 L MCV 94.8 MCH 30.9 MCHC 32.6 RDW 20.3 H Plt Count 201 MPV 8.0 PT 17.4 H INR 1.7 Sodium 139 Potassium 4.0 Chloride 101 Carbon Dioxide 30.3 Anion Gap 8 BUN 19 H Creatinine 0.97 Estimated GFR 75 L Random Glucose 104 Calcium 8.4 L - Impressions ITS Impressions Venous Doppler Study 09/06/18 17:51 CONCLUSION: 1. The study is negative for bilateral lower extremity deep venous thrombosis. Chest X-Ray 09/06/18 17:52 CONCLUSION: Bibasilar areas of consolidation or atelectasis being worse on the right with a suspected right effusion. Chest CTA 09/09/18 00:00 CONCLUSION: 1. Breathing motion artifact degrades the study somewhat. 2. Tiny solitary linear filling defect involving the interlobar pulmonary artery and the right is unchanged in the prior exam. This appearance is more suggestive of chronic clot. No acute filling defects observed on the current study. 3. Cardiomegaly. 4. Bilateral pleural effusions with passive atelectasis. Abdomen Ultrasound 09/10/18 00:00 CONCLUSION: 1. Nondistended gallbladder with 5 mm calculus. 2. Prominent superficial soft tissue fluid collection in the left lower quadrant similar to finding seen on November 2017 CT examination. 3. Bilateral pleural effusions. Discharge Plan - Discharge Disposition Patient Disposition: Disch W/Home Health Service - Discharge Condition Condition: Stable - Discharge Order Discharge Orders: Discharge Order (Routine); Ordered 09/13/18 Ordered By: Umm Collins - Physicians Team Primary Care Provider: Lai Hernandez Attending Provider: Umm Collins Other Providers: Russell Rogers MD
[2018-09-13 12:40] VITALS: BP 113/70; TEMP 98.2
[2018-09-13 13:57] VITALS: PULSE 59
--- NOTE | 2018-09-13 14:10 | P.DCO ---
- Diagnosis (1) Pulmonary embolism Status: Acute (2) Acute exacerbation of CHF (congestive heart failure) Status: Acute (3) Physical deconditioning Status: Acute - Physical Therapy Order: Evaluate and treat, Improve ambulation, Strength and gait training - Occupational Therapy Order: Evaluate and treat, Improve ADL, Fine motor coordination - Home Health Nursing Order: Medical education, Signs/symptoms of disease process, CHF education, Medication education-adverse effect - Home Health Aide Order: To assist in: Bathing and personal care - Case Management Consult Yes - Certification I have seen patient Moustapha Kaye on 09/13/18. My clinical findings support the need for the requested home health care services because: Limited mobility due to disease progression, Patient has SOB, Deconditioned with increased weakness, High risk of falls I certify that my clinical findings support that this patient is homebound because: Unsteady gait/balance, Poor cardiac reserve (2) Acute exacerbation of CHF (congestive heart failure) Qualifiers: Heart failure type: systolic Qualified Code(s): I50.23 - Acute on chronic systolic (congestive) heart failure
== END 2018-09-13 15:03 | disposition home health service (06) ==
LOC: NEPC 17:32 → NEDA 21:08 → HCPC 23:37 → HCIN 09-07 14:08 → HCIS 09-13 08:52 → HCIN 09-13 08:57
PROVIDERS: ADMIT Family Medicine; ATTEND Family Medicine